=== PATIENT | male | born 1945 | race Caucasian/White ===

== ENCOUNTER 2020-09-11 10:19 | Day surgery (SDC) | payer MEDICARE, SELFPAY ==
--- NOTE | 2020-09-10 13:59 | HP_ITS ---
DATE OF SERVICE: 09/11/2020 PREOPERATIVE DIAGNOSES: 1. Osteomyelitis, left second toe. 2. Nonhealing skin ulcer, dorsum left second toe. PLANNED PROCEDURES: 1. Incision of infected bone cortex, left second toe. 2. Excision of skin ulcer, left second toe. 3. Bone biopsy, left second toe. PLANNED ANESTHESIA: Local anesthetic. CHIEF COMPLAINT AND HISTORY OF PRESENT ILLNESS: Mr. Padilla is a 75-year-old male who relates history of nonhealing skin ulcer and infected bone involving left second toe present over the past 3-1/2 to 4 months' duration. Conservative treatment consisting of wound care as well as oral antibiotics and endovascular procedures have been performed to help enhance the wound healing. The patient is now requesting surgical treatment for nonhealing infected bone and skin ulcer of his left second toe. PAST MEDICAL HISTORY: Remarkable for arthritis, diabetes, hypertensive renal disease. CURRENT MEDICATIONS: Lisinopril, NovoLog, simvastatin, Lantus, doxycycline. ALLERGIES: THE PATIENT HAS NEGATIVE REACTION TO PENICILLIN. FAMILY HISTORY: Significant for diabetes, hypertension, kidney disease. SOCIAL HISTORY: The patient denies smoking. Denies use of alcohol. Denies use of any recreational drugs. The patient does drink 3 to 5 cups of coffee per day. PODIATRIC PHYSICAL EXAM: VASCULAR EXAM: As of August 27, 2020 revealed nonpalpable pulses of the DP and PT arteries bilateral. NEUROLOGIC EXAM: Reveals reduced light touch, sharp, dull sensation, vibratory sensation, and monofilament testing in bilateral feet. DERMATOLOGIC EXAM: Reveals an ulcer on the dorsum of the left second toe PIP joint which measures 7 mm x 5 mm x 2 to 3 mm in depth, probes down to necrotic tendon and joint tissue of the PIP joint of this toe. ORTHOPEDIC EXAM: Reveals hammertoe contracture, bilateral feet. The patient will be consented for surgery on the day of surgery, September 11, 2020. The patient had endovascular procedure yesterday that would be September 09, 2020 at [facility] with Dr. Phillip Amaral, and we spoke to Dr. Riley prior to surgery and he assured as there were no contraindications to proceeding with surgery. The patient is aware that if he does not heal from this procedure, most likely he will need amputation of at least the left second toe and perhaps more the foot. RUBEN Samaniego/NICANOR / [phone]
[2020-09-11 11:53] VITALS: BMI 24.1
[2020-09-11 12:11] VITALS: BP 137/60; PULSE 70; RESP 16; TEMP 36.9; O2SAT 99
[2020-09-11 12:32] LABS: Glucose, Whole Blood 143 mg/dL (60-115)
--- NOTE | 2020-09-11 14:11 | MHC.SHP ---
Pre-Procedural Eval Section A Date of Service: 09/11/20 Section B Chief Complaint: osteomyelitis,skin ulcer Allergies: Allergies Allergy/AdvReac Type Severity Reaction Status Date / Time penicillin V Allergy Unknown Rash Verified 09/11/20 11:52 Penicillins [PENICILLINS] Allergy Unknown RASH Verified 09/11/20 11:52 penicillin Allergy Unknown rash Uncoded 09/11/20 11:53 Plan I have reviewed the history and physical and performed a pertinent physical examination on my patient. No changes have occurred unless specified.
[2020-09-11 15:00] VITALS: BP 143/71; PULSE 66; RESP 18; TEMP 36.3; O2SAT 100
--- NOTE | 2020-09-11 15:06 | PCN2_ITS ---
Brief Operative Note Date of procedure: 09/11/20 Pre-op diagnosis: osteomyelitis left second toe and non-healing skin ulcer left second toe Post-op diagnosis: same Procedure: incision of bone cortex, bone biopsy and culture and excision of skin ulcer 3.1 cm by 1.1 cm left second toe Anesthesia: local Surgeon: Marcello Dawson [employer] Music Teacher: Ivonne Lockhart Estimated blood loss (mL): 10.0 Condition: stable Disposition: PACU
--- NOTE | 2020-09-11 16:13 | OP_ITS ---
SURGEON: Marcello Dawson DPM PREOPERATIVE DIAGNOSIS: POSTOPERATIVE DIAGNOSIS: PROCEDURE PERFORMED: ESTIMATED BLOOD LOSS: COMPLICATIONS: ANESTHESIA: Consisted of local administration of a total of 4 mL of 2% lidocaine plain. ASSISTANTS: SPECIMENS: PREOPERATIVE DIAGNOSES: 1. Osteomyelitis of the left second toe. 2. Skin ulcer of the left second toe, nonhealing. POSTOPERATIVE DIAGNOSES: 1. Osteomyelitis of the left second toe. 2. Skin ulcer of the left second toe, nonhealing. PROCEDURES PERFORMED: 1. Incision of the infected bone cortex, left second toe. 2. Excision of skin ulcer of the left foot, measuring 3.1 cm length x 1 cm width. 3. Bone biopsy, left second toe. INTRODUCTION: The patient was brought to the operating room and placed on the operating table in the supine position. After having been suitably anesthetized with local infiltrative anesthesia, the left lower extremity was then prepped and draped in usual sterile manner. Attention was directed to the dorsum of the left second toe, where 2 converging semi-elliptical incisions were planned to excise the skin ulcer on the dorsum of the left second toe PIP joint. Upon so doing, the skin margins were underscored and retracted, and the ellipse of skin was excised from the wound in toto. There was found to be excellent blood flow to the second toe throughout the procedure, particularly during the skin incision. The head of the proximal phalanx was actually protruding through the skin on the dorsum of the left second toe through the skin ulceration. Utilizing a power sagittal saw, the bone was osteotomized proximal to the anatomic neck of the left second toe proximal phalanx, and the utilizing bone cutting forceps, the diseased bone and cartilage from the articular surface of the proximal phalanx was sent for bone biopsy and for bone culture. The base of the middle phalanx was excised utilizing a sagittal saw. The wound was irrigated with copious amounts of sterile saline, utilizing a power lavage and suction. The extensor tendon was sutured utilizing 3-0 Vicryl. Skin margins were closed with a combination of 3-0 and 4-0 nylon. CONCLUSION: At the conclusion of these procedures, the operative site was dressed with Xeroform, injected with a total of 3 mL of Marcaine 0.5% plain. 2-inch Rudy, Betadine-soaked gauze, Kerlix fluffs, and then 4-inch Conform were applied to the left lower extremity. The patient tolerated the surgery and anesthesia well and was discharged to Recovery via cart. FINAL DISPOSITION: The patient is discharged to home with instructions for self-care to include the followin. To keep the dressings dry, clean, and intact. 2. To keep the left leg elevated. 3. To take all medications as prescribed. 4. To limit activity to minimum. 5. To always use surgical shoe whenever ambulating. 6. The patient will be taking doxycycline 100 mg daily and antibiotics may be changed pending the results of the wound culture and bone culture. . CUT OFF SAW OPERATOR PIPE BLANKS: RUBEN Aguilar DPM WW/NICANOR / [id number] RAYMUNDO
== END 2020-09-11 15:30 ==
LOC: HO.SSS 10:20
PROVIDERS: PCP Internal Medicine; Visit Provider Podiatrist
PROC: (CPT 28005; principal; 2020-09-11 13:00)
DX: M86.9 Osteomyelitis, unspecified (principal); L97.522 Non-pressure chronic ulcer of other part of left foot with fat layer exposed; E10.42 Type 1 diabetes mellitus with diabetic polyneuropathy; I70.203 Unspecified atherosclerosis of native arteries of extremities, bilateral legs; M20.42 Other hammer toe(s) (acquired), left foot; M20.41 Other hammer toe(s) (acquired), right foot; I10 Essential (primary) hypertension; Z79.4 Long term (current) use of insulin; Z79.899 Other long term (current) drug therapy; Z88.0 Allergy status to penicillin
CPT/HCPCS: 28005; 11424; 28054; 82947; 87071; 87205; 88304; 88305; 88311

== ENCOUNTER 2020-10-20 08:14 | Outpatient (REF) | payer MEDICARE, SELFPAY ==
[2020-10-20 09:44] LABS: MANUAL DIFF FLAG NO
[2020-10-20 09:57] LABS: Basophils Absolute Auto 0.1 X10*3/uL (0.0-0.2); Basophils Percent Auto 0.8 % (0-2); Eosinophils Absolute Auto 0.2 X10*3/uL (0.0-0.4); Eosinophils Percent Auto 3.5 % (0-4); Hematocrit 42.5 % (42-52); Hemoglobin 14.1 g/dl (14.0-18.0); Imm Gran Abs Auto 0.02 X10*3/uL (0.00-0.03); Imm Gran Pct Auto 0.3 % (0.0-0.4); Lymphocytes Absolute Auto 2.2 X10*3/uL (1.2-4.9); Lymphocytes Percent Auto 32.9 % (20-40); Mean Corpuscular HGB Conc 33.2 g/dl (31.0-36.0); Mean Corpuscular Volume 87.4 fL (80-98); Mean Platelet Volume 10.9 fL (9.4-12.4); Monocytes Absolute Auto 0.6 X10*3/uL (0.1-1.2); Monocytes Percent Auto 8.6 % (2-11); Neutrophils Absolute Auto 3.5 X10*3/uL (2.0-8.3); Neutrophils Percent Auto 53.9 % (45-73); Platelet Count 150 X10*3/uL (160-400); Red Blood Count 4.86 X10*6/uL (4.60-5.80); Red Cell Distribution Width 12.7 % (11.0-16.0); White Blood Count 6.5 X10*3/uL (4.8-10.8)
[2020-10-20 10:10] LABS: Alanine Aminotransferase 17 U/L (0-40); Albumin Level 4.4 g/dL (3.5-5.0); Alkaline Phosphatase 95 U/L (39-117); Anion Gap 13 (12-20); Aspartate Amino Transferase 24 U/L (5-37); Bilirubin Total 0.3 mg/dL (0.0-1.0); Blood Urea Nitrogen 28 mg/dL (9-16); Calcium 9.5 mg/dL (8.4-10.2); Carbon Dioxide 24 mmol/L (22-29); Chloride 107 mmol/L (96-108); Cholesterol 159 mg/dL; Estimated Glomerular Filt Rate > 60; Glucose Random 142 mg/dL (60-115); HDL Cholesterol 33 mg/dL; LDL Cholesterol Calculated 107 mg/dl; Potassium 5.3 mmol/L (3.3-5.1); Sodium 139 mmol/L (135-145); Total Protein 7.3 g/dL (6.5-8.0); Triglycerides 97 mg/dL
[2020-10-20 10:34] LABS: Thyroid Stimulating Hormone 3.43 uIU/mL (0.32-4.0)
[2020-10-20 10:36] LABS: Creatinine Urine 80.13 mg/dL; Microalbum/Creatinine Ratio Ur 9.9 ug/mg cr
[2020-10-20 10:37] LABS: Folate 13.3 ng/mL (> or = 4.0); Vitamin B12 548 pg/mL (200-900)
== END 2020-10-20 08:15 | disposition home or self-care (01) ==
LOC: HO.LAB 08:14
PROVIDERS: PCP Internal Medicine; Visit Provider Internal Medicine
DX: E78.00 Pure hypercholesterolemia, unspecified (principal); E11.65 Type 2 diabetes mellitus with hyperglycemia; I10 Essential (primary) hypertension; Z79.4 Long term (current) use of insulin
CPT/HCPCS: 36415; 80053; 80061; 82043; 82607; 82746; 84439; 84443; 85025

== ENCOUNTER 2021-06-10 09:16 | Outpatient (REF) | payer MEDICARE, SELFPAY ==
[2021-06-10 09:52] LABS: MANUAL DIFF FLAG NO
[2021-06-10 10:01] LABS: Basophils Percent Auto 0.5 % (0-2); Eosinophils Absolute Auto 0.2 X10*3/uL (0.0-0.4); Hematocrit 42.7 % (42.0-52.0); Hemoglobin 14.5 g/dl (14.0-18.0); Imm Gran Abs Auto 0.01 X10*3/uL (0.00-0.03); Imm Gran Pct Auto 0.1 % (0.0-0.4); Lymphocytes Absolute Auto 2.4 X10*3/uL (1.2-4.9); Lymphocytes Percent Auto 32.2 % (20-40); Mean Corpuscular Hemoglobin 29.2 pg (27.0-33.0); Mean Corpuscular Volume 85.9 fL (80.0-98.0); Mean Platelet Volume 10.4 fL (9.4-12.4); Monocytes Absolute Auto 0.7 X10*3/uL (0.1-1.2); Monocytes Percent Auto 9.5 % (2-11); Neutrophils Percent Auto 54.7 % (45-73); Platelet Count 137 X10*3/uL (160-400); Red Blood Count 4.97 X10*6/uL (4.60-5.80); White Blood Count 7.3 X10*3/uL (4.8-10.8)
[2021-06-10 10:50] LABS: Alanine Aminotransferase 22 U/L (0-40); Albumin Level 4.5 g/dL (3.5-5.0); Alkaline Phosphatase 119 U/L (39-117); Anion Gap 13 (12-20); Aspartate Amino Transferase 20 U/L (5-37); Bilirubin Total 0.7 mg/dL (0.0-1.0); Blood Urea Nitrogen 23 mg/dL (9-16); Calcium 9.7 mg/dL (8.4-10.2); Carbon Dioxide 26 mmol/L (22-29); Chloride 108 mmol/L (96-108); Cholesterol 120 mg/dL; Estimated Glomerular Filt Rate 52; Glucose Random 135 mg/dL (60-115); HDL Cholesterol 26 mg/dL; LDL Cholesterol Calculated 72 mg/dl; Potassium 6.1 mmol/L (3.3-5.1); Sodium 141 mmol/L (135-145); Total Protein 7.2 g/dL (6.5-8.0); Triglycerides 112 mg/dL
== END 2021-06-10 09:17 | disposition home or self-care (01) ==
LOC: HO.LAB 09:16
PROVIDERS: PCP Internal Medicine; Visit Provider Internal Medicine
DX: E78.00 Pure hypercholesterolemia, unspecified (principal)
CPT/HCPCS: 36415; 80053; 80061; 85025

== ENCOUNTER 2021-06-11 10:21 | Outpatient (REF) | payer MEDICARE, SELFPAY ==
[2021-06-11 12:50] LABS: Anion Gap 10 (12-20); Blood Urea Nitrogen 19 mg/dL (9-16); Calcium 9.9 mg/dL (8.4-10.2); Carbon Dioxide 29 mmol/L (22-29); Chloride 107 mmol/L (96-108); Estimated Glomerular Filt Rate > 60; Glucose Random 91 mg/dL (60-115); Potassium 5.8 mmol/L (3.3-5.1); Sodium 140 mmol/L (135-145)
== END 2021-06-11 10:22 | disposition home or self-care (01) ==
LOC: HO.LAB 10:21
PROVIDERS: PCP Internal Medicine; Visit Provider Internal Medicine
DX: E87.5 Hyperkalemia (principal)
CPT/HCPCS: 36415; 80048

== ENCOUNTER 2021-06-18 12:51 | Outpatient (REF) | payer MEDICARE, SELFPAY ==
[2021-06-18 13:53] LABS: Anion Gap 12 (12-20); Blood Urea Nitrogen 20 mg/dL (9-16); Calcium 9.2 mg/dL (8.4-10.2); Carbon Dioxide 28 mmol/L (22-29); Chloride 108 mmol/L (96-108); Estimated Glomerular Filt Rate > 60; Glucose Random 86 mg/dL (60-115); Potassium 4.8 mmol/L (3.3-5.1); Sodium 143 mmol/L (135-145)
== END 2021-06-18 12:52 | disposition home or self-care (01) ==
LOC: HO.LAB 12:51
PROVIDERS: PCP Internal Medicine; Visit Provider Internal Medicine
DX: E87.5 Hyperkalemia (principal)
CPT/HCPCS: 36415; 80048

== ENCOUNTER → 2022-02-08 10:14 | Outpatient (REF) | payer MEDICARE, SELFPAY ==
--- NOTE | 2022-02-08 10:16 | CA_ITS ---
Transthoracic Echocardiogram Patient (Last, First, Middle): Arsenio Padilla G Gender: Male Date of : 1945 Age: 76 Procedure Date: 02/08/2022 Procedure Type: Transthoracic Echocardiogram Location: OP Height: 170.18 cm Weight: 72.58 kg BSA: 1.84 m2 Heart Rate: bpm BP: 140 / 70 mmHg Offset Machine Operator: YENY Referring MD: Petty Riley MD Symptoms: I10 - Essential (primary) hypertension Study Quality: Fair ECG Rhythm: Sinus Conclusions: - The left ventricular systolic function is normal. The visually estimated ejection fraction is between 55-60%. - There is severe aortic valve stenosis. Findings Left Ventricle Normal left ventricular cavity size. There is moderately increased left ventricular wall thickness. The left ventricular systolic function is normal. The visually estimated ejection fraction is between 55-60%. There is no evidence of regional wall motion abnormalities. Diastolic function is normal for age. Right Ventricle Normal right ventricular cavity size and systolic function. Atria Both atria are normal in size. Aortic Valve There is severe calcification of the aortic valve. There is severe aortic valve stenosis. The peak aortic gradient is 77 mmHg.The mean gradient is 49 mmHg. The aortic valve area is 0.53 cm2. There is mild aortic valve regurgitation. Dimensionless index 0.17. Mitral Valve There is mild mitral annular calcification. There is no mitral valve regurgitation. There is no mitral valve stenosis. Pulmonic Valve The pulmonic valve was not well visualized. Tricuspid Valve There is trace tricuspid valve regurgitation. There is no evidence of pulmonary hypertension. Great Vessels The asc aorta is normal in size. Venous The inferior vena cava is normal in size and collapses greater than 50% with inspiration. Pericardium/Pleural There is no evidence of pericardial effusion. Prior Study Comparison Changes noted compared to prior study dated: 05/19/2009. Development of aortic stenosis. Measurements 2D Linear Measurements IVSd: 1.30 0.6-0.9/0.6-1.0 cm LVIDd: 3.84 3.9-5.3/4.2-5.9 cm LVIDd Index: 2.09 2.4-3.2/2.2-3.1 cm/m2 LVIDs: 2.73 2.0-3.6 cm LVPWd: 1.22 0.7-1.1 cm LA Diam: 3.00 2.7-3.8/3.0-4.0 cm LAIDs Index: 1.63 1.5-2.3 cm/m2 LV Mass: 208.66 67-162/88-224 g LV Mass Index: 113.40 43-95/49-115 g/m2 LVOT Diam: 2.00 3.0+(-)1.3 cm 2D Systolic Function EF 4C: 60.30 >55% EF 2C: 54.40 >55% Mitral Valve MV Pk E: 0.81 MV PK A: 1.27 MV Decel Time: 423.00 E/A: 0.60 E'Lateral: 5.87 E'Medial: 3.70 E/E' Med: 21.90 E/E' Lat: 13.80 PHT: 124.00 MVA PHT: 1.77 Decel [place]: 1.92 Aortic Valve AoV Pk Karthikeyan: 4.38 AoV Mn Karthikeyan: 3.31 AoV VTI: 1.17 AoV Pk Grad: 77.00 Aov Mn Grad: 49.00 ELLA Cont.VTI: 0.53 AI Pk Karthikeyan: 4.22 AI [place]: 1.79 LVOT LVOT Pk Karthikeyan: 0.75 LVOT Mn Karthikeyan: 0.57 LVOT VTI: 0.20 LVOT Pk Grad: 2.00 LVOT Mn Grad: 1.00 LVOT Diam: 2.00 LVOT Area: 3.14 Diastolic Function MV Pk E: 0.81 MV Pk A: 1.27 E/A: 0.60 E'Medial: 3.70 E/E' Med: 21.90 E' Laterial: 5.87 E/E' Lat: 13.80 Right Ventricle TAPSE (mm): 25.00 TVS' Karthikeyan: 10.60 Tricuspid Valve RA Press: 3.00 Great Vessels Aorta Sinus of Valsalva: 3.42 2.0-3.[address] [place]: 2.50 1.7-3.4 cm Ao Asc: 2.70 2.1-3.4 cm Updated in Other Vendor System with Status of Final Collins Levine MD electronically signed on 02/08/2022 12:55:01 PM with status of Final
== END ==
LOC: HO.CARD 10:14
PROVIDERS: Visit Provider Internal Medicine
DX: I10 Essential (primary) hypertension (principal)
CPT/HCPCS: 93306

== ENCOUNTER → 2022-02-11 09:42 | Outpatient (BNVA) | payer MEDICARE, SELFPAY | PROVIDERS: PCP Internal Medicine; Referring Provider Internal Medicine; Visit Provider Internal Medicine | DX: I35.0 Nonrheumatic aortic (valve) stenosis (principal) | CPT/HCPCS: 93005; 99202 ==

== ENCOUNTER 2022-02-19 07:23 | Outpatient (REF) | payer MEDICARE, SELFPAY ==
[2022-02-19 08:03] LABS: Hemoglobin 13.6 g/dl (14.0-18.0); Mean Corpuscular Hemoglobin 28.9 pg (27.0-33.0); Mean Corpuscular Volume 85.1 fL (80.0-98.0); Mean Platelet Volume 10.4 fL (9.4-12.4); Platelet Count 146 X10*3/uL (160-400); Red Cell Distribution Width 13.1 % (11.0-16.0); White Blood Count 7.7 X10*3/uL (4.8-10.8)
[2022-02-19 08:17] LABS: INTERNATIONAL NORM RATIO 1.1 (0.9-1.1); Prothrombin Time 12.1 SEC (10.0-13.1)
[2022-02-19 08:28] LABS: Anion Gap 13 (12-20); Blood Urea Nitrogen 24 mg/dL (9-16); Calcium 9.3 mg/dL (8.4-10.2); Carbon Dioxide 27 mmol/L (22-29); Chloride 109 mmol/L (96-108); Estimated Glomerular Filt Rate > 60; Glucose Random 80 mg/dL (60-115); Potassium 4.6 mmol/L (3.3-5.1); Sodium 144 mmol/L (135-145)
[2022-02-19 08:54] LABS: Alanine Aminotransferase 17 U/L (0-40); Albumin Level 4.3 g/dL (3.5-5.0); Alkaline Phosphatase 121 U/L (39-117); Anion Gap 11 (12-20); Aspartate Amino Transferase 20 U/L (5-37); Bilirubin Total 0.7 mg/dL (0.0-1.0); Blood Urea Nitrogen 22 mg/dL (9-16); Calcium 9.4 mg/dL (8.4-10.2); Carbon Dioxide 27 mmol/L (22-29); Chloride 110 mmol/L (96-108); Cholesterol 118 mg/dL; Estimated Glomerular Filt Rate > 60; Glucose Random 82 mg/dL (60-115); HDL Cholesterol 26 mg/dL; LDL Cholesterol Calculated 75 mg/dl; Potassium 5.1 mmol/L (3.3-5.1); Sodium 143 mmol/L (135-145); TSH reflex Free T4 3.23 uIU/mL (0.32-4.0); Total Protein 6.6 g/dL (6.5-8.0); Triglycerides 86 mg/dL; Vitamin D 25-OH Total 16.2 ng/mL (>30)
[2022-02-19 10:20] LABS: Folate 11.6 ng/mL (> or = 4.0); Vitamin B12 1487 pg/mL (200-900)
[2022-02-19 17:32] LABS: Creatinine Urine 65.72 mg/dL; Microalbum/Creatinine Ratio Ur 31.9 ug/mg cr
== END 2022-02-19 07:24 | disposition home or self-care (01) ==
LOC: HO.LAB 07:23
PROVIDERS: Absent Provider Internal Medicine; PCP Internal Medicine; Visit Provider Internal Medicine
DX: I35.0 Nonrheumatic aortic (valve) stenosis (principal); E11.65 Type 2 diabetes mellitus with hyperglycemia; E78.00 Pure hypercholesterolemia, unspecified; Z13.29 Encounter for screening for other suspected endocrine disorder
CPT/HCPCS: 36415; 80048; 80053; 80061; 82043; 82306; 82607; 82746; 84443; 85027; 85610

== ENCOUNTER → 2022-03-17 14:42 | Outpatient (BNVA) | payer MEDICARE, SELFPAY | PROVIDERS: PCP Internal Medicine; Referring Provider Internal Medicine; Visit Provider Internal Medicine | DX: I35.0 Nonrheumatic aortic (valve) stenosis (principal); I25.10 Atherosclerotic heart disease of native coronary artery without angina pectoris; I10 Essential (primary) hypertension; E11.65 Type 2 diabetes mellitus with hyperglycemia; Z79.4 Long term (current) use of insulin; Z79.899 Other long term (current) drug therapy | CPT/HCPCS: 99212 ==

== ENCOUNTER → 2022-06-24 09:24 | Outpatient (BNVA) | payer MEDICARE, SELFPAY | PROVIDERS: PCP Internal Medicine; Referring Provider Internal Medicine; Visit Provider Internal Medicine | DX: I25.10 Atherosclerotic heart disease of native coronary artery without angina pectoris (principal); I48.0 Paroxysmal atrial fibrillation; I10 Essential (primary) hypertension; E11.65 Type 2 diabetes mellitus with hyperglycemia; Z79.01 Long term (current) use of anticoagulants; Z79.4 Long term (current) use of insulin; Z79.82 Long term (current) use of aspirin; Z79.899 Other long term (current) drug therapy | CPT/HCPCS: 99212 ==

== ENCOUNTER → 2022-09-07 11:07 | Outpatient (REF) | payer MEDICARE, MEDICAID, SELFPAY ==
--- NOTE | 2022-09-07 11:11 | CA_ITS ---
Transthoracic Echocardiogram Patient (Last, First, Middle): Aresnio Padilla G Gender: Male Date of : 1945 Age: 77 Procedure Date: 09/07/2022 Procedure Type: Transthoracic Echocardiogram Location: OP Height: 167.64 cm Weight: 69.4 kg BSA: 1.78 m2 Heart Rate: bpm BP: 122 / 70 mmHg Occupational Therapy Director: Referring MD: Collins Levine MD Symptoms: Z95.2 - Presence of prosthetic heart valve Study Quality: Fair ECG Rhythm: Sinus Conclusions: - The left ventricular systolic function is low normal. The visually estimated ejection fraction is between 50-55%. - A bioprosthetic aortic valve is present. The prosthetic aortic valve appears to be functioning normally. Findings Procedure Information Contrast agent, definity, is being given per protocol without apparent complications. Left Ventricle Normal left ventricular cavity size. There is mildly increased left ventricular wall thickness. The left ventricular systolic function is low normal. The visually estimated ejection fraction is between 50-55%. There is no evidence of regional wall motion abnormalities. Diastolic function is normal for age. Right Ventricle Normal right ventricular cavity size. There is mildly decreased right ventricular systolic function. Atria Both atria are normal in size. Aortic Valve A bioprosthetic aortic valve is present. The prosthetic aortic valve appears to be functioning normally. There is no aortic valve regurgitation. Mitral Valve There is mild mitral annular calcification. There is no mitral valve regurgitation. There is no mitral valve stenosis. Pulmonic Valve The pulmonic valve is likely normal. Tricuspid Valve There is trace tricuspid valve regurgitation. There is no evidence of pulmonary hypertension. Great Vessels The asc aorta is normal in size. Venous The inferior vena cava is normal in size and collapses greater than 50% with inspiration. Pericardium/Pleural There is no evidence of pericardial effusion. Prior Study Comparison Changes noted compared to prior study dated: 02/08/2022. s/p AVR Measurements 2D Linear Measurements IVSd: 1.09 0.6-0.9/0.6-1.0 cm LVIDd: 4.46 3.9-5.3/4.2-5.9 cm LVIDd Index: 2.51 2.4-3.2/2.2-3.1 cm/m2 LVIDs: 2.94 2.0-3.6 cm LVPWd: 1.13 0.7-1.1 cm Ao Root: 2.80 2.1-3.5 cm LA Diam: 3.00 2.7-3.8/3.0-4.0 cm LAIDs Index: 1.69 1.5-2.3 cm/m2 LV Mass: 217.74 67-162/88-224 g LV Mass Index: 122.32 43-95/49-115 g/m2 LVOT Diam: 2.00 3.0+(-)1.3 cm 2D Systolic Function EF 4C: 54.00 >55% EF 2C: 57.90 >55% EF BiP: 54.70 >55% Mitral Valve MV Pk E: 0.97 MV PK A: 1.13 MV Decel Time: 228.00 E/A: 0.90 E'Lateral: 9.03 E'Medial: 4.24 E/E' Med: 22.80 E/E' Lat: 10.70 PHT: 67.00 MVA PHT: 3.28 Decel [place]: 4.24 Aortic Valve AoV Pk Karthikeyan: 1.51 AoV Mn Karthikeyan: 1.16 AoV VTI: 0.38 AoV Pk Grad: 9.00 Aov Mn Grad: 6.00 ELLA Cont.VTI: 1.88 LVOT LVOT Pk Karthikeyan: 0.89 LVOT Mn Karthikeyan: 0.57 LVOT VTI: 0.23 LVOT Pk Grad: 3.00 LVOT Mn Grad: 2.00 LVOT Diam: 2.00 LVOT Area: 3.14 Diastolic Function MV Pk E: 0.97 MV Pk A: 1.13 E/A: 0.90 E'Medial: 4.24 E/E' Med: 22.80 E' Laterial: 9.03 E/E' Lat: 10.70 Right Ventricle TAPSE (mm): 16.00 TVS' Karthikeyan: 7.00 Tricuspid Valve TR Pk Karthikeyan: 1.88 TR Pk Grad: 14.00 Great Vessels Aorta Ao Root-2D: 2.80 2.0-3.7 cm Ao Asc: 2.80 2.1-3.4 cm Pulmonary Valve PV Pk Karthikeyan: 0.98 Peak PV Grad: 4.00 Updated in Other Vendor System with Status of Final Collins Levine MD electronically signed on 09/08/2022 10:42:29 AM with status of Final
== END ==
LOC: HO.CARD 11:07
PROVIDERS: Visit Provider Internal Medicine
DX: Z95.2 Presence of prosthetic heart valve (principal); I07.1 Rheumatic tricuspid insufficiency; I34.81 Nonrheumatic mitral (valve) annulus calcification; I49.3 Ventricular premature depolarization; I49.1 Atrial premature depolarization
CPT/HCPCS: 93242; 93306; Q9957

== ENCOUNTER 2022-10-11 12:48 | Outpatient (AMB) | payer MEDICARE, MEDICAID, SELFPAY ==
[2022-09-07 13:19] VITALS: BP 122/60; BP 128/64; BMI 24.3
[2022-10-11 12:50] VITALS: BP 122/70; PULSE 73; BMI 25.0
--- NOTE | 2022-10-11 12:50 | A.OFFVIS_ITS ---
Intake Vital Signs 10/11/22 12:50 Height 5 ft 7 in Weight 159 lb 9.835 oz BMI 25.0 BP 122/70 Blood Pressure Location Lt brachial Position Sitting Pulse 73 Intake Visit Reasons: follow up testing Intake Note: follow up testing Passenger Service Manager Required: No Accompanied by: Spouse Allergies penicillin V Allergy (Unknown, Verified 10/11/22 12:53) Rash Penicillins [PENICILLINS] Allergy (Unknown, Verified 10/11/22 12:53) RASH penicillin Allergy (Unknown, Uncoded 10/11/22 12:53) rash Medication List - Last Reconciled 10/11/22 by Collins Levine MD apixaban (Eliquis) 5 mg PO BID aspirin (Adult Low Dose Aspirin) 81 mg PO DAILY atorvastatin 40 mg PO DAILY 100 days blood sugar diagnostic 1 strip miscellaneous QID 100 days cyanocobalamin (vitamin B-12) 1,000 mcg PO DAILY 100 days finasteride 5 mg PO DAILY 100 days flash glucose scanning reader (edjingStyle Lyndsay 2 [place]) As directed flash glucose sensor (FreeStyle Lyndsay 14 Day Sensor kit) As directed flash glucose sensor (FreeStyle Lyndsay 2 Sensor kit) 6 times per day insulin detemir U-100 (Levemir FlexTouch U-100 Insulin) 20 units (0.2 mL) subcut BEDTIME 100 days Novolog FlexPen U-100 Insulin (insulin aspart U-100) 10 units (0.1 mL) subcut TID 100 days NS pen needle, diabetic (BD Ultra-Fine L[place]a Pen Needle) As directed 6 times per day HPI HPI Comments History of Present Illness Details Arsenio returns for follow-up regarding coronary artery disease. He was having exertional cardiac symptoms and that led to workup showing multivessel coronary disease as well as severe aortic stenosis. Underwent coronary artery bypass surgery and aortic valve replacement. Overall, he is doing good. No complaints like angina or shortness of breath or in fact anything cardiac sounding. [facility] Medical History Atherosclerotic cardiovascular disease BPH (benign prostatic hyperplasia) Finger fracture, left Hypercholesterolemia Hypertension Lumbar degenerative disc disease Type 2 diabetes mellitus with hyperglycemia Surgical History History of cataract surgery History of toe surgery S/P triple vessel bypass Family History Family/Other No problems noted. Mother CHF (congestive heart failure) Social History Housing: House Alcohol intake: never Patient Tobacco Use Status: Never used Tobacco e-Cigarette/Vaping Use: Never Used Second Hand Smoke Exposure: No service: No Current occupational status: retired Cognitive needs: No Hearing needs: No Vision needs: Yes Review of Systems Const Denies weakness ENT Denies dizziness Card Denies chest pain, Denies chest pain with activity, Denies syncope, Denies rapid heart rate, Denies pedal edema, Denies edema, Denies leg edema, Denies lightheadedness, Denies palpitations, Denies dyspnea, Denies dyspnea on exertion and Denies orthopnea Resp Denies cough, Denies dyspnea and Denies dyspnea on exertion GI Denies hematochezia and Denies change in stool character Musc Denies abnormal gait, Denies muscle cramps, Denies muscle weakness, Denies numbness, Denies radiating pain into limb and Denies tingling Neuro Denies abnormal gait, Denies dizziness, Denies syncope, Denies numbness, Denies tingling and Denies weakness Endo Denies palpitations Physical Exam Vital Signs: Last Vital Signs Pulse 73 10/11/22 12:50 BP 122/70 10/11/22 12:50 BMI result Body Mass Index 25.0 Const General: comfortable and no acute distress Orientation/consciousness: patient oriented x3 HEENT Other: Unremarkable Head: Yes normal to inspection Neck Neck: Yes normal visual inspection Chest Chest palpation & inspection: normal inspection of the chest Resp Auscultation: clear to auscultation bilaterally Cardio Palpation: normal PMI Heart sounds: S1 normal heart sound present, S2 normal heart sound present, no gallops, no murmurs and no rubs GI Palpation (GI): Soft to palpation Back/Spine/Pelvis Other: unremarkable Skin General skin exam: no rashes or lesions noted Neuro General: patient oriented x3 Extrem General: Yes normal to inspection Psych Mental Status: mental status grossly normal Assessment & Plan Assessment & Plan (1) Atherosclerotic cardiovascular disease: Code(s): I25.10 - Atherosclerotic heart disease of [place] coronary artery without angina pectoris Plan: Per discharge summary, underwent CABG x3-TITUS to LAD, sequential venous graft to OM and PDA. Continue aspirin. Continue statins. Last LDL 75 mg/dL. (2) Status post aortic valve replacement: Code(s): Z95.2 - Presence of prosthetic heart valve Plan: #23 Bioprosthetic AVR. Infective endocarditis prophylaxis per protocol. In the echocardiogram, normally functioning bioprosthetic aortic valve. (3) PAF (paroxysmal atrial fibrillation): Code(s): I48.0 - Paroxysmal atrial fibrillation Plan: Postoperative atrial fibrillation. He was on short-term amiodarone but now discontinued. On Eliquis. (4) Hypertension: Code(s): I10 - Essential (primary) hypertension Qualifiers: Hypertension type: essential hypertension Qualified Code(s): I10 - Essential (primary) hypertension Plan: He was on lisinopril but it seems that after the bypass surgery this has been discontinued. Seems stable. (5) Type 2 diabetes mellitus with hyperglycemia: Code(s): E11.65 - Type 2 diabetes mellitus with hyperglycemia Qualifiers: Diabetes mellitus under cutting machine operator insulin use: with under cutting machine operator use Qualified Code(s): E11.65 - Type 2 diabetes mellitus with hyperglycemia; Z79.4 - correction (current) use of insulin Plan: Remains on insulin. Last hemoglobin A1c is 6.4%. Coding Level of Care Code Est Pt Level 4 (81353) Diagnoses Atherosclerotic cardiovascular disease I25.10 Status post aortic valve replacement Z95.2 PAF (paroxysmal atrial fibrillation) I48.0 Hypertension I10 Hypertension type: essential hypertension Type 2 diabetes mellitus with hyperglycemia E11.65; Z79.4 Diabetes mellitus under cutting machine operator insulin use: with nursing home use
== END 2022-10-11 13:10 | disposition home or self-care (01) ==
PROVIDERS: Visit Provider Internal Medicine
DX: I25.10 Atherosclerotic heart disease of native coronary artery without angina pectoris (principal); Z95.2 Presence of prosthetic heart valve; I48.0 Paroxysmal atrial fibrillation; I10 Essential (primary) hypertension; E11.65 Type 2 diabetes mellitus with hyperglycemia; Z79.4 Long term (current) use of insulin
CPT/HCPCS: 99214

== ENCOUNTER → 2022-10-11 12:48 | Outpatient (BNVA) | payer MEDICARE, MEDICAID, SELFPAY ==
[2022-09-07 13:19] VITALS: BP 122/60; BP 128/64; BMI 24.3
== END ==
PROVIDERS: Visit Provider Internal Medicine
DX: I25.10 Atherosclerotic heart disease of native coronary artery without angina pectoris (principal); I48.0 Paroxysmal atrial fibrillation; I10 Essential (primary) hypertension; E11.65 Type 2 diabetes mellitus with hyperglycemia; Z79.4 Long term (current) use of insulin; Z95.2 Presence of prosthetic heart valve
CPT/HCPCS: 99212

== ENCOUNTER 2022-10-14 09:24 | Outpatient (REF) | payer MEDICARE, MEDICAID, SELFPAY ==
[2022-09-07 13:19] VITALS: BP 122/60; BP 128/64; BMI 24.3
[2022-10-14 09:53] LABS: MANUAL DIFF FLAG NO
[2022-10-14 10:29] LABS: Basophils Percent Auto 0.5 % (0-2); Eosinophils Absolute Auto 0.4 X10*3/uL (0.0-0.4); Eosinophils Percent Auto 4.8 % (0-4); Hematocrit 38.5 % (42.0-52.0); Hemoglobin 12.5 g/dl (14.0-18.0); Imm Gran Abs Auto 0.02 X10*3/uL (0.00-0.03); Imm Gran Pct Auto 0.3 % (0.0-0.4); Lymphocytes Absolute Auto 2.1 X10*3/uL (1.2-4.9); Lymphocytes Percent Auto 28.3 % (20-40); Mean Corpuscular HGB Conc 32.5 g/dl (31.0-36.0); Mean Corpuscular Hemoglobin 27.4 pg (27.0-33.0); Mean Corpuscular Volume 84.2 fL (80.0-98.0); Monocytes Absolute Auto 0.7 X10*3/uL (0.1-1.2); Monocytes Percent Auto 9.2 % (2-11); Neutrophils Absolute Auto 4.2 x10*3/uL (2.0-8.3); Neutrophils Percent Auto 56.9 % (45-73); Red Blood Count 4.57 X10*6/uL (4.60-5.80); Red Cell Distribution Width 14.7 % (11.0-16.0); White Blood Count 7.4 X10*3/uL (4.8-10.8)
[2022-10-14 11:12] LABS: Alanine Aminotransferase 16 U/L (0-40); Albumin Level 3.7 g/dL (3.5-5.0); Alkaline Phosphatase 105 U/L (39-117); Anion Gap 15 (12-20); Aspartate Amino Transferase 22 U/L (5-37); Bilirubin Total 0.6 mg/dL (0.0-1.0); Blood Urea Nitrogen 22 mg/dL (9-16); Calcium 9.4 mg/dL (8.4-10.2); Carbon Dioxide 22 mmol/L (22-29); Chloride 110 mmol/L (96-108); Cholesterol 124 mg/dL; Estimated Glomerular Filt Rate > 60; Glucose Fasting 91 mg/dL (60-99); HDL Cholesterol 27 mg/dL; LDL Cholesterol Calculated 76 mg/dl; Potassium 4.6 mmol/L (3.3-5.1); Sodium 142 mmol/L (135-145); Total Protein 6.6 g/dL (6.5-8.0); Triglycerides 107 mg/dL
[2022-10-14 11:23] LABS: Mean Platelet Volume 11.3 fL (9.4-12.4); Platelet Count 99 X10*3/uL (160-400)
[2022-10-14 11:31] LABS: TSH reflex Free T4 3.02 uIU/mL (0.32-4.0)
== END 2022-10-14 09:25 | disposition home or self-care (01) ==
LOC: HO.LAB 09:24
PROVIDERS: PCP Internal Medicine; Visit Provider Nurse Practitioner Family
DX: I48.0 Paroxysmal atrial fibrillation (principal); I48.91 Unspecified atrial fibrillation; I25.10 Atherosclerotic heart disease of native coronary artery without angina pectoris; E78.00 Pure hypercholesterolemia, unspecified; Z95.2 Presence of prosthetic heart valve; D64.9 Anemia, unspecified
CPT/HCPCS: 36415; 80053; 80061; 84443; 85025

== ENCOUNTER 2022-10-27 10:55 | Outpatient (AMB) | payer MEDICARE, MEDICAID, SELFPAY ==
[2022-09-07 13:19] VITALS: BP 122/60; BP 128/64; BMI 24.3
[2022-10-27 11:00] VITALS: BP 138/68; PULSE 68; O2SAT 96; BMI 24.6
--- NOTE | 2022-10-27 11:00 | A.OFFPC_ITS ---
Vital Signs 10/27/22 11:00 Height 5 ft 7 in Weight 157 lb BMI 24.6 BP 138/68 Blood Pressure Location Lt brachial Position Sitting Pulse 68 Pulse Source Pulse Oximeter Pulse Oximetry (%) 96 Oxygen Delivery Method Room Air Intake Visit Reasons: DM, HTN, HLD Allergies penicillin V Allergy (Unknown, Verified 10/27/22 11:01) Rash Penicillins [PENICILLINS] Allergy (Unknown, Verified 10/27/22 11:01) RASH penicillin Allergy (Unknown, Uncoded 10/11/22 12:53) rash Medication List - Last Reconciled 10/27/22 by Petty Riley MD apixaban (Eliquis) 5 mg PO BID aspirin (Adult Low Dose Aspirin) 81 mg PO DAILY atorvastatin 40 mg PO DAILY 100 days blood sugar diagnostic 1 strip miscellaneous QID 100 days cyanocobalamin (vitamin B-12) 1,000 mcg PO DAILY 100 days finasteride 5 mg PO DAILY 100 days flash glucose scanning reader (FreeStyle Lyndsay 2 [place]) As directed flash glucose scanning reader (FreeStyle Lyndsay 2 [place]) As directed flash glucose sensor (FreeStyle Lyndsay 14 Day Sensor kit) As directed flash glucose sensor (FreeStyle Lyndsay 2 Sensor kit) 6 times per day flash glucose sensor (FreeStyle Lyndsay 2 Sensor kit) As directed insulin detemir U-100 (Levemir FlexTouch U-100 Insulin) 20 units subcut BEDTIME Novolog FlexPen U-100 Insulin (insulin aspart U-100) 10 units (0.1 mL) subcut TID 100 days NS pen needle, diabetic (BD Ultra-Fine Licha Pen Needle) As directed 6 times per day Tobacco use date assessed: 07/16/22 Dental Screening Dental Screen Date: 10/27/22 Did you have a dental visit in the last 12 months?: Yes Did you have a dental problem in the last 6 months where you did not have access to dental care?: No Was dental information given to patient?: Patient has dentist HPI DM, HTN, HLD HPI Details 77-year-old male with controlled diabetes mellitus hypertension hypercholesterolemia BPH and peripheral vascular disease last seen in January 2022. Blood work was requested with an echocardiogram. Patient does have severe aortic stenosis.. 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 The visually estimated ejection fraction is between 50-55%. - A bioprosthetic aortic valve is present. The prosthetic aortic valve appears to be functioning normally. Patient also follows up with Nephrology June 2019 had an acute kidney injury as well as Urology for epididymo-orchitis [facility] Medical History (Updated 10/27/22 @ 11:33 by Petty Riley MD) Atherosclerotic cardiovascular disease BPH (benign prostatic hyperplasia) Finger fracture, left Hypercholesterolemia Hypertension Lumbar degenerative disc disease Type 2 diabetes mellitus with hyperglycemia Surgical History (Updated 10/27/22 @ 11:18 by Petty Riley MD) History of cataract surgery History of toe surgery S/P triple vessel bypass Family History (Updated 10/27/22 @ 11:03 by Nataly Thomas) Family/Other No problems noted. Mother CHF (congestive heart failure) Social History Housing: House Alcohol intake: never Patient Tobacco Use Status: Never used Tobacco e-Cigarette/Vaping Use: Never Used Second Hand Smoke Exposure: No service: No Current occupational status: retired Cognitive needs: No Hearing needs: No Vision needs: Yes Questionnaire PHQ-9 Over the last 2 weeks, how often have you been bothered by any of the following problems? 1. Little interest or pleasure in doing things: not at all 2. Feeling down, depressed, or hopeless: not at all 3. Trouble falling or staying asleep, or sleeping too much: not at all 4. Feeling tired or having little energy: not at all 5. Poor appetite or overeating: not at all 6. Feeling bad about yourself - or that you are a failure or have let yourself or your family down: not at all 7. Trouble concentrating on things, such as reading the newspaper or watching television: not at all 8. Moving or speaking so slowly that other people could have noticed. Or the opposite - being so fidgety or restless that you have been moving around a lot more than usual: not at all 9. Thoughts that you would be better off or of hurting yourself in some way: not at all Total score: 0 Depression Screening Interpretation: Negative [id number] - PHQ-9 Billing: Yes Source: Developed by Drs. Rocael Crespo, Elizabeth Cordero, Norm Cherry and colleagues, with an educational barbara from [email or web address]. Thrive Questionnaire Date Thrive assessed: 10/27/22 I am a: Patient What is your living situation today?: I have a steady place to live Within the past 12 months, did the food you bought not last and you didn't have the money to get more?: Never true Within the past 12 months, did you worry whether your food would run out before you got money to buy more?: Never true Do you have trouble paying for medicines?: No Do you have trouble getting transportation to medical appointments?: No Do you have trouble paying your heating and electricity bill?: No Do you have trouble taking care of your child, family member or friend?: No Do you have trouble with day-to-day activities such as bathing, preparing meals, shopping, managing finances, etc.?: No Are you currently unemployed and looking for a job?: No Are you interested in more education?: No Currently or been in a relationship where the following occur: no concerns reported AUDIT C Alcohol Use Questionnaire (AUDIT-C) 1. How often do you have a drink containing alcohol?: Never 2. How many drinks containing alcohol do you have on a typical day when you are drinking?: 1 or 2 3. How often do you have six or more drinks on one occasion?: Never Total Score: 0 Score Reviewed/Action Taken: No KENDELL-7 AMB Questionnaire KENDELL-7 Date KENDELL - 7 assessed: 10/27/22 Feeling nervous, anxious, or on edge: 0 = Not at all Not being able to stop or control worryin = Not at all Worrying too much about different things: 0 = Not at all Trouble relaxin = Not at all Being so restless that it is hard to sit still: 0 = Not at all Becoming easily annoyed or irritable: 0 = Not at all Feeling afraid as if something awful might happen: 0 = Not at all Total KENDELL-7 score (0-4 normal; 5-9 mild; 10-14 moderate; 15-21 severe): 0 Source: Developed by Elizabeth Lai Kurt Kroenke and colleagues, with an educational barbara from [email or web address]. Physical exam (Primary Care) Vital Signs: Last Vital Signs Pulse 68 10/27/22 11:00 BP 138/68 10/27/22 11:00 Pulse Ox 96 10/27/22 11:00 Oxygen Delivery Method Room Air 10/27/22 11:00 BMI result Body Mass Index 24.6 Tobacco/Smoking Status: Tobacco use Status Tobacco use date assessed 07/16/22 10/27/22 11:05 Patient Tobacco Use Status Never used Tobacco 10/27/22 11:05 e-Cigarette/Vaping Use Never Used 10/27/22 11:05 PHQ-9: PHQ-9 Score PHQ-9: Total score 0 10/27/22 11:16 Depression Screening Interpretation: Negative Thrive Assessment: Date of Thrive Assessment Date Thrive assessed 10/27/22 10/27/22 11:05 Currently or been in a relationship where the following occur: no concerns reported Const General: alert; No acute distress Eyes Conjunctivae: conjunctivae normal Resp Auscultation: clear to auscultation bilaterally Cardio Rate: regular rate Rhythm: regular rhythm GI Inspection: Yes normal to inspection Extrem General: Yes normal to inspection and No edema Results AMB Hemoglobin A1c AMB Hemoglobin A1c 7.7 % Last Edit by Sharda Gonzales CMA on 10/27/22 11 :17 Assessment and Plan Assessment & Plan (1) Atherosclerotic cardiovascular disease: Comment: Coronary artery bypass graft x3 April [address] Marquis Code(s): I25.10 - Atherosclerotic heart disease of [place] coronary artery without angina pectoris Plan: Control the cholesterol, weight, blood pressure, diabetes (2) Status post aortic valve replacement: Comment: April 2022 Dr. Marquis Code(s): Z95.2 - Presence of prosthetic heart valve Plan: Echocardiogram May 2022 (3) PAF (paroxysmal atrial fibrillation): Code(s): I48.0 - Paroxysmal atrial fibrillation Plan: Continue with anticoagulation (4) Type 2 diabetes mellitus with hyperglycemia: Code(s): E11.65 - Type 2 diabetes mellitus with hyperglycemia Qualifiers: Diabetes mellitus buttermaker continuous churn insulin use: with buttermaker continuous churn use Qualified Code(s): E11.65 - Type 2 diabetes mellitus with hyperglycemia; Z79.4 - terminal carman (current) use of insulin Plan: Decrease the amount of carbohydrate intake, pasta, bread, rice and potatoes are all sugar and that is aside from all the sweet stuff, remember that fruits are good but they are Sweet also. Hemoglobin A1c goal of less than 7.0 patient on Levemir and NovoLog (5) Hypercholesterolemia: Code(s): E78.00 - Pure hypercholesterolemia, unspecified Plan: Avoid fried foods, chicken skin, eggs, butter margarine, pastries and meat. Be it pork or beef they have a lot of cholesterol LDL goal of less than 70 patient is taking atorvastatin 40 mg once a day (6) Anemia: Code(s): D64.9 - Anemia, unspecified Orders: Orders Complete Blood Count Auto Diff Today D64.9 - Anemia, unspecified Ferritin Today D64.9 - Anemia, unspecified IRON PROFILE Today D64.9 - Anemia, unspecified Reticulocyte Count Today D64.9 - Anemia, unspecified AMB Hemoglobin A1c Today Z13.9 - Encounter for screening, unspecified Medications: New flash glucose scanning reader (FreeStyle Lyndsay 2 [place]) As directed 1 ea 0RF E11.65 - Type 2 diabetes mellitus with hyperglycemia, Z79.4 - care home (current) use of insulin flash glucose sensor (FreeStyle Lyndsay 2 Sensor kit) As directed 6 kits 0RF E11.65 - Type 2 diabetes mellitus with hyperglycemia, Z79.4 - terminal carman (current) use of insulin Changed From insulin detemir U-100 (Levemir FlexTouch U-100 Insulin) 20 units (0.2 mL) subcut BEDTIME 100 days 7 mL 3RF E11.65 - Type 2 diabetes mellitus with hyperglycemia, Z79.4 - care home (current) use of insulin To insulin detemir U-100 (Levemir FlexTouch U-100 Insulin) 20 units subcut BEDTIME E11.65 - Type 2 diabetes mellitus with hyperglycemia, Z79.4 - care home (current) use of insulin Coding Level of Care Code Est Pt Level 4 (42181) Diagnoses Atherosclerotic cardiovascular disease I25.10 Status post aortic valve replacement Z95.2 PAF (paroxysmal atrial fibrillation) I48.0 Type 2 diabetes mellitus with hyperglycemia E11.65; Z79.4 Diabetes mellitus skilled nursing insulin use: with buttermaker continuous churn use Hypercholesterolemia E78.00 Anemia D64.9
== END 2022-10-27 11:43 | disposition home or self-care (01) ==
PROVIDERS: PCP Internal Medicine; Visit Provider Internal Medicine
DX: I25.10 Atherosclerotic heart disease of native coronary artery without angina pectoris (principal); I48.0 Paroxysmal atrial fibrillation; E11.65 Type 2 diabetes mellitus with hyperglycemia; Z79.4 Long term (current) use of insulin; Z95.2 Presence of prosthetic heart valve; E78.00 Pure hypercholesterolemia, unspecified; D64.9 Anemia, unspecified
CPT/HCPCS: 83036; 99214

== ENCOUNTER 2023-02-02 12:16 | Outpatient (AMB) | payer MEDICARE, MEDICAID, SELFPAY ==
[2022-09-07 13:19] VITALS: BP 122/60; BP 128/64; BMI 24.3
--- NOTE | 2023-02-02 12:27 | A.OFFPC_ITS ---
Vital Signs 02/02/23 12:28 Height 5 ft 7 in Weight 156 lb BMI 24.4 BP 126/70 Blood Pressure Location Lt brachial Position Sitting Pulse 68 Pulse Source Pulse Oximeter Pulse Oximetry (%) 99 Oxygen Delivery Method Room Air Intake Visit Reasons: DM, CAD, AFib Allergies penicillin V Allergy (Unknown, Verified 10/27/22 11:01) Rash Penicillins [PENICILLINS] Allergy (Unknown, Verified 10/27/22 11:01) RASH penicillin Allergy (Unknown, Uncoded 10/11/22 12:53) rash Medication List - Last Reconciled 02/02/23 by Petty Riley MD apixaban (Eliquis) 5 mg PO BID aspirin (Adult Low Dose Aspirin) 81 mg PO DAILY atorvastatin 40 mg PO DAILY 100 days blood sugar diagnostic 1 strip miscellaneous QID 100 days cyanocobalamin (vitamin B-12) 1,000 mcg PO DAILY 100 days [DIABETIC SHOES As directed] finasteride 5 mg PO DAILY 100 days flash glucose scanning reader (FreeStyle Lyndsay 2 [place]) As directed flash glucose scanning reader (FreeStyle Lyndsay 2 [place]) As directed flash glucose sensor (FreeStyle Lyndsay 14 Day Sensor kit) As directed flash glucose sensor (FreeStyle Lyndsay 2 Sensor kit) 6 times per day flash glucose sensor (FreeStyle Lyndsay 2 Sensor kit) As directed insulin detemir U-100 (Levemir FlexTouch U-100 Insulin) 20 units subcut BEDTIME Novolog FlexPen U-100 Insulin (insulin aspart U-100) 10 units (0.1 mL) subcut TID 100 days NS pen needle, diabetic (BD Ultra-Fine Licha Pen Needle) As directed 6 times per day Tobacco use date assessed: 07/16/22 HPI DM, CAD, AFib HPI Details 77-year-old male with a history of diabe lisseth mellitus coronary artery disease status post aortic valve replacement atrial fibrillation hypercholesterolemia coming in for follow-up. Last seen in October 2022 A1c at that time was 7.7. [facility] Medical History (Updated 02/02/23 @ 12:57 by Petty Riley MD) Screening for hypothyroidism Atherosclerotic cardiovascular disease BPH (benign prostatic hyperplasia) Lumbar degenerative disc disease Finger fracture, left Hypercholesterolemia Hypertension Type 2 diabetes mellitus with hyperglycemia Surgical History (Updated 10/27/22 @ 11:18 by Petty Riley MD) S/P triple vessel bypass History of toe surgery History of cataract surgery Family History (Updated 10/27/22 @ 11:03 by Nataly Thomas) Family/Other No problems noted. Mother CHF (congestive heart failure) Housing: House Alcohol intake: never Patient Tobacco Use Status: Never used Tobacco e-Cigarette/Vaping Use: Never Used Second Hand Smoke Exposure: No service: No Current occupational status: retired Cognitive needs: No Hearing needs: No Vision needs: Yes Questionnaire Thrive Questionnaire Date Thrive assessed: 10/27/22 KENDELL-7 AMB Questionnaire KENDELL-7 Date KENDELL - 7 assessed: 10/27/22 Source: Developed by Drs. Rocael Crespo, Elizabeth Cordero, Norm Cherry and colleagues, with an educational barbara from [employer]. Physical exam (Primary Care) Vital Signs: Last Vital Signs Pulse 68 02/02/23 12:28 BP 126/70 02/02/23 12:28 Pulse Ox 99 02/02/23 12:28 Oxygen Delivery Method Room Air 02/02/23 12:28 BMI result Body Mass Index 24.4 Tobacco/Smoking Status: Tobacco use Status Tobacco use date assessed 07/16/22 02/02/23 12:27 Patient Tobacco Use Status Never used Tobacco 02/02/23 12:27 e-Cigarette/Vaping Use Never Used 02/02/23 12:27 Thrive Assessment: Date of Thrive Assessment Date Thrive assessed 10/27/22 02/02/23 12:27 Const General: alert; No acute distress Eyes Conjunctivae: conjunctivae normal Resp Auscultation: clear to auscultation bilaterally Cardio Rate: regular rate Rhythm: regular rhythm GI Inspection: Yes normal to inspection Extrem General: Yes normal to inspection and No edema Office Procedures Flu Questionnaire Does the patient have a severe egg allergy?: No Does the patient have severe life threatening allergies?: No Does the patient have a fever or illness today?: No Has the patient ever had Guillain-Jaffrey Syndrome?: No Has the patient ever had any past reaction to a flu shot?: No Results AMB Hemoglobin A1c AMB Hemoglobin A1c 8.0 % Last Edit by MACY Mcdowell on 02/02/23 12:40 Immunizations flu vacc [id number] 6mos up(PF) 60 mcg(15 mcgx4)/0.5 mL IM syringe Performing Provider: Petty Riley MD [facility] [facility] [place] [facility] Administered by: MACY Mcdowell on 02/02/23 12:39 Dose Route Admin Location Dispensed Lot Number Expiration Date NDC Stereoptic Projection Topographer 0.5 mL IM Left Deltoid 0.5 mL [id number] 02/02/23 [id number] [employer] VIS Given Date VIS Provided VIS Publication Date 02/02/23 Single Vaccine 20 Eligibility Eligibility Date Funding Source Not VFC Eligible 02/02/23 Private Results Reviewed Results Reviewed: Laboratory Last Values Hgb A1c (Clinic) 8.0 % (4.0-6.0) H 02/02/23 12:36 Assessment and Plan Assessment & Plan (1) Type 2 diabetes mellitus with hyperglycemia: Comment: Dr. Camilo in [place] Code(s): E11.65 - Type 2 diabetes mellitus with hyperglycemia Qualifiers: Diabetes mellitus intermediate card tender insulin use: with intermediate card tender use Qualified Code(s): E11.65 - Type 2 diabetes mellitus with hyperglycemia; Z79.4 - local intermodal truck driver (current) use of insulin Plan: Decrease the amount of carbohydrate intake, pasta, bread, rice and potatoes are all sugar and that is aside from all the sweet stuff, remember that fruits are good but they are Sweet also. Hemoglobin A1c goal of less than 7.0 patient is on Levemir and NovoLog. (2) Hypercholesterolemia: Code(s): E78.00 - Pure hypercholesterolemia, unspecified Plan: Avoid fried foods, chicken skin, eggs, butter margarine, pastries and meat. Be it pork or beef they have a lot of cholesterol LDL goal of less than 100 and triglyceride of less than 150 patient is on atorvastatin 40 mg once a day (3) BPH (benign prostatic hyperplasia): Code(s): N40.0 - Benign prostatic hyperplasia without lower urinary tract symptoms Qualifiers: Lower urinary tract symptom detail: urinary frequency Lower urinary tract symptom presence: symptoms present Qualified Code(s): N40.1 - Benign prostatic hyperplasia with lower urinary tract symptoms; R35.0 - Frequency of micturition Plan: Continue with finasteride (4) Atherosclerotic cardiovascular disease: Comment: Coronary artery bypass graft x3 April [address] Dr[address] Marquis Code(s): I25.10 - Atherosclerotic heart disease of [place] coronary artery without angina pectoris Plan: Control the cholesterol, weight, blood pressure, diabetes (5) PAF (paroxysmal atrial fibrillation): Code(s): I48.0 - Paroxysmal atrial fibrillation Plan: Continue with anticoagulation with Eliquis twice a year blood work for renal function (6) Status post aortic valve replacement: Comment: April [address] Dr. Marquis Code(s): Z95.2 - Presence of prosthetic heart valve Plan: Stable continue to follow-up with cardiology (7) Ulcer of toe of left foot: Code(s): L97.529 - Non-pressure chronic ulcer of other part of left foot with unspecified severity Plan: follows up with Dr. Juju gomez Orders: Orders Influenza [id number] Immunization Today Z23 - Encounter for immunization Thyroid Stimulating Hormone 3 Months I25.10 - Atherosclerotic heart disease of [place] coronary artery without angina pectoris Hemoglobin A1c 3 Months I25.10 - Atherosclerotic heart disease of [place] coronary artery without angina pectoris Ferritin 3 Months I25.10 - Atherosclerotic heart disease of [place] coronary artery without angina pectoris Reticulocyte Count 3 Months I25.10 - Atherosclerotic heart disease of [place] coronary artery without angina pectoris AMB Hemoglobin A1c Today E11.65 - Type 2 diabetes mellitus with hyperglycemia Complete Blood Count Auto Diff 3 Months I25.10 - Atherosclerotic heart disease of [place] coronary artery without angina pectoris Comprehensive Met. Panel 3 Months I25.10 - Atherosclerotic heart disease of [place] coronary artery without angina pectoris Free T4 (Free Thyroxine) 3 Months I25.10 - Atherosclerotic heart disease of [place] coronary artery without angina pectoris Lipid Panel 3 Months E78.00 - Pure hypercholesterolemia, unspecified, I25.10 - Atherosclerotic heart disease of [place] coronary artery without angina pectoris Vitamin B12 and Folate 3 Months I25.10 - Atherosclerotic heart disease of [place] coronary artery without angina pectoris IRON PROFILE 3 Months I25.10 - Atherosclerotic heart disease of [place] coronary artery without angina pectoris Coding Level of Care Code Est Pt Level 4 (02974) Diagnoses Type 2 diabetes mellitus with hyperglycemia, with long-term current use of insulin E11.65; Z79.4 Diabetes mellitus intermediate card tender insulin use: with senior living use Hypercholesterolemia E78.00 Benign prostatic hyperplasia with urinary frequency N40.1; R35.0 Lower urinary tract symptom detail: urinary frequency Lower urinary tract symptom presence: symptoms present Atherosclerotic cardiovascular disease I25.10 PAF (paroxysmal atrial fibrillation) I48.0 Status post aortic valve replacement Z95.2 Ulcer of toe of left foot L97.514
[2023-02-02 12:28] VITALS: BP 126/70; PULSE 68; O2SAT 99; BMI 24.4
== END 2023-02-02 13:07 | disposition home or self-care (01) ==
PROVIDERS: PCP Internal Medicine; Visit Provider Internal Medicine
DX: E11.65 Type 2 diabetes mellitus with hyperglycemia (principal); Z79.4 Long term (current) use of insulin; L97.529 Non-pressure chronic ulcer of other part of left foot with unspecified severity; Z23 Encounter for immunization; E78.00 Pure hypercholesterolemia, unspecified; I48.0 Paroxysmal atrial fibrillation; R35.0 Frequency of micturition; N40.1 Benign prostatic hyperplasia with lower urinary tract symptoms; I25.10 Atherosclerotic heart disease of native coronary artery without angina pectoris; Z95.2 Presence of prosthetic heart valve
CPT/HCPCS: 83036; 90471; 90686; 99214

== ENCOUNTER 2023-05-11 09:00 | Outpatient (REF) | payer MEDICARE, MEDICAID, SELFPAY ==
[2022-11-01 08:04] VITALS: BP 122/60; BP 128/64; BMI 24.3
[2023-05-11 09:13] LABS: MANUAL DIFF FLAG NO
[2023-05-11 10:28] LABS: Basophils Percent Auto 0.4 % (0-2); Eosinophils Absolute Auto 0.3 X10*3/uL (0.0-0.4); Eosinophils Percent Auto 4.3 % (0-4); Hematocrit 38.4 % (42.0-52.0); Hemoglobin 12.8 g/dl (14.0-18.0); Imm Gran Abs Auto 0.01 X10*3/uL (0.00-0.03); Imm Gran Pct Auto 0.1 % (0.0-0.4); Immature Retic Fraction 5.7 % (2.3-13.4); Lymphocytes Absolute Auto 2.4 X10*3/uL (1.2-4.9); Mean Corpuscular HGB Conc 33.3 g/dl (31.0-36.0); Mean Corpuscular Hemoglobin 28.6 pg (27.0-33.0); Mean Corpuscular Volume 85.7 fL (80.0-98.0); Monocytes Absolute Auto 0.7 X10*3/uL (0.1-1.2); Monocytes Percent Auto 10.4 % (2-11); Neutrophils Absolute Auto 3.6 x10*3/uL (2.0-8.3); Neutrophils Percent Auto 50.8 % (45-73); Platelet Count 132 X10*3/uL (160-400); Red Blood Count 4.48 X10*6/uL (4.60-5.80); Red Cell Distribution Width 13.8 % (11.0-16.0); Retic HGB Equivalent 32.6 pg (30.0-35.0); Reticulocyte Percent 1.2 % (0.5-1.8); Reticulocytes Absolute 0.054 X10*6/uL (0.026-0.095); White Blood Count 7.1 X10*3/uL (4.8-10.8)
[2023-05-11 11:12] LABS: Alanine Aminotransferase 14 U/L (0-40); Albumin Level 4.1 g/dL (3.5-5.0); Alkaline Phosphatase 149 U/L (39-117); Anion Gap 14 (12-20); Aspartate Amino Transferase 22 U/L (5-37); Bilirubin Total 0.7 mg/dL (0.0-1.0); Blood Urea Nitrogen 31 mg/dL (9-16); Calcium 9.7 mg/dL (8.4-10.2); Carbon Dioxide 26 mmol/L (22-29); Chloride 107 mmol/L (96-108); Cholesterol 113 mg/dL (<200); Estimated Glomerular Filt Rate > 60; Glucose Random 101 mg/dL (60-115); HDL Cholesterol 27 mg/dL (>40); Iron 78 mcg/dL (45-160); LDL Cholesterol Calculated 67 mg/dL (<100); Percent Iron Saturation 33 % (15-50); Potassium 4.8 mmol/L (3.3-5.1); Sodium 142 mmol/L (135-145); Total Iron Binding Capacity 233 mcg/dL (228-428); Triglycerides 97 mg/dL (<150); Unsaturated Iron Binding 155 ug/dL
[2023-05-11 11:16] LABS: Ferritin 338 ng/mL (20-250); Free T4 (Free Thyroxine) 0.89 ng/dL (0.71-1.85); Thyroid Stimulating Hormone 2.29 uIU/mL (0.32-4.0)
[2023-05-11 12:08] LABS: Estimated Average Glucose 163 mg/dL; Hemoglobin A1c % 7.3 % (<6.0)
[2023-05-11 15:02] LABS: Folate 7.4 ng/mL (> or = 4.0); Vitamin B12 1215 pg/mL (200-900)
== END 2023-05-11 09:01 | disposition home or self-care (01) ==
LOC: HO.LAB 09:00
PROVIDERS: PCP Internal Medicine; Visit Provider Internal Medicine
DX: I25.10 Atherosclerotic heart disease of native coronary artery without angina pectoris (principal); E78.00 Pure hypercholesterolemia, unspecified; D64.9 Anemia, unspecified
CPT/HCPCS: 36415; 80053; 80061; 82607; 82728; 82746; 83036; 83540; 84439; 84443; 85025; 85045

== ENCOUNTER 2023-05-16 11:01 | Outpatient (AMB) | payer MEDICARE, MEDICAID, SELFPAY ==
[2022-11-01 08:04] VITALS: BP 122/60; BP 128/64; BMI 24.3
--- NOTE | 2023-05-16 11:12 | A.OFFPC_ITS ---
Vital Signs 05/16/23 11:14 Height 5 ft 7 in Weight 159 lb 6 oz BMI 25.0 BP 130/70 Blood Pressure Location Lt brachial Position Sitting Pulse 71 Pulse Source Pulse Oximeter Pulse Oximetry (%) 98 Oxygen Delivery Method Room Air Intake Visit Reasons: DM Intake Note: Patient is here to follow up on DM. General Service Technician Required: No Employment Law Specialist: Present Accompanied by: Spouse Allergies penicillin V Allergy (Unknown, Verified 05/16/23 11:14) Rash Penicillins [PENICILLINS] Allergy (Unknown, Verified 05/16/23 11:14) RASH penicillin Allergy (Unknown, Uncoded 05/16/23 11:14) rash Medication List - Last Reconciled 05/16/23 by Petty Riley MD apixaban (Eliquis) 5 mg PO BID aspirin (Adult Low Dose Aspirin) 81 mg PO DAILY atorvastatin 40 mg PO DAILY 100 days blood sugar diagnostic 1 strip miscellaneous QID 100 days cyanocobalamin (vitamin B-12) 1,000 mcg PO DAILY 100 days [DIABETIC SHOES As directed] finasteride 5 mg PO DAILY 100 days insulin detemir U-100 20 units (0.2 mL) subcut BEDTIME lisinopril 2.5 mg PO DAILY Novolog FlexPen U-100 Insulin (insulin aspart U-100) 10 units (0.1 mL) subcut TID 100 days NS pen needle, diabetic (BD Ultra-Fine Licha Pen Needle) As directed 6 times per day Tobacco use date assessed: 05/16/23 Fall risk assessment: No Falls in past year Last assessed Fall Risk: 05/16/23 Dental Screening Dental Screen Date: 05/16/23 Did you have a dental visit in the last 12 months?: Yes Did you have a dental problem in the last 6 months where you did not have access to dental care?: No Was dental information given to patient?: Patient has dentist HPI DM HPI Details 77-year-old male with diabetes mellitus hypercholesterolemia atherosclerotic heart disease BPH atrial fibrillation status post aortic valve replacement coming in for follow-up last seen in January 2023. [facility] Medical History (Updated 02/02/23 @ 12:57 by Petty Riley MD) Screening for hypothyroidism Atherosclerotic cardiovascular disease BPH (benign prostatic hyperplasia) Lumbar degenerative disc disease Finger fracture, left Hypercholesterolemia Hypertension Type 2 diabetes mellitus with hyperglycemia Surgical History S/P triple vessel bypass History of toe surgery History of cataract surgery Family History Family/Other No problems noted. Mother CHF (congestive heart failure) Social History Housing: House Alcohol intake: never Patient Tobacco Use Status: Never used Tobacco e-Cigarette/Vaping Use: Never Used Second Hand Smoke Exposure: No service: No Current occupational status: retired Cognitive needs: No Hearing needs: No Vision needs: Yes Questionnaire PHQ-9 Over the last 2 weeks, how often have you been bothered by any of the following problems? 1. Little interest or pleasure in doing things: not at all 2. Feeling down, depressed, or hopeless: not at all 3. Trouble falling or staying asleep, or sleeping too much: not at all 4. Feeling tired or having little energy: not at all 5. Poor appetite or overeating: not at all 6. Feeling bad about yourself - or that you are a failure or have let yourself or your family down: not at all 7. Trouble concentrating on things, such as reading the newspaper or watching television: not at all 8. Moving or speaking so slowly that other people could have noticed. Or the opposite - being so fidgety or restless that you have been moving around a lot more than usual: not at all 9. Thoughts that you would be better off or of hurting yourself in some way: not at all Total score: 0 Depression Screening Interpretation: Negative Depression Screening Done: Yes Source: Developed by Drs. Rocael Crespo, Elizabeth Cordero, Norm Cherry and colleagues, with an educational barbara from [employer]. Thrive Questionnaire Date Thrive assessed: 05/16/23 I am a: Patient What is your living situation today?: I have a steady place to live Within the past 12 months, did the food you bought not last and you didn't have the money to get more?: Never true Within the past 12 months, did you worry whether your food would run out before you got money to buy more?: Never true Do you have trouble paying for medicines?: No Do you have trouble getting transportation to medical appointments?: No Do you have trouble paying your heating and electricity bill?: No Do you have trouble taking care of your child, family member or friend?: No Do you have trouble with day-to-day activities such as bathing, preparing meals, shopping, managing finances, etc.?: No Are you currently unemployed and looking for a job?: No Are you interested in more education?: No Currently or been in a relationship where the following occur: no concerns reported THRIVE Score: 0 AUDIT C Alcohol Use Questionnaire (AUDIT-C) 1. How often do you have a drink containing alcohol?: Never Total Score: 0 KENDELL-7 AMB Questionnaire KENDELL-7 Date KENDELL - 7 assessed: 05/16/23 Feeling nervous, anxious, or on edge: 0 = Not at all Not being able to stop or control worryin = Not at all Worrying too much about different things: 0 = Not at all Trouble relaxin = Not at all Being so restless that it is hard to sit still: 0 = Not at all Becoming easily annoyed or irritable: 0 = Not at all Feeling afraid as if something awful might happen: 0 = Not at all Total KENDELL-7 score (0-4 normal; 5-9 mild; 10-14 moderate; 15-21 severe): 0 Source: Developed by Drs. Rocael Crespo, Elizabeth Cordero, Norm Cherry and colleagues, with an educational barbara from [employer]. Physical exam (Primary Care) Vital Signs: Last Vital Signs Pulse 71 05/16/23 11:14 BP 130/70 05/16/23 11:14 Pulse Ox 98 05/16/23 11:14 Oxygen Delivery Method Room Air 05/16/23 11:14 BMI result Body Mass Index 25.0 Tobacco/Smoking Status: Tobacco use Status Tobacco use date assessed 05/16/23 05/16/23 11:17 Patient Tobacco Use Status Never used Tobacco 05/16/23 11:17 e-Cigarette/Vaping Use Never Used 05/16/23 11:17 PHQ-9: PHQ-9 Score PHQ-9: Total score 0 05/16/23 12:07 Depression Screening Interpretation: Negative Thrive Assessment: Date of Thrive Assessment Date Thrive assessed 05/16/23 05/16/23 11:17 Currently or been in a relationship where the following occur: no concerns reported Const General: alert; No acute distress Eyes Conjunctivae: conjunctivae normal Resp Auscultation: clear to auscultation bilaterally Cardio Rate: regular rate Rhythm: regular rhythm GI Inspection: Yes normal to inspection Extrem General: Yes normal to inspection and No edema Immunizations tetanus-diphtheria toxoids-Td 2 Lf unit-2 Lf unit/0.5 mL IM suspension Performing Provider: Petty Riley MD [facility] Administered by: MACY Tapia on 05/16/23 12:15 Dose Route Admin Location Dispensed Lot Number Expiration Date 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 Marquis Code(s): Z95.2 - Presence of prosthetic heart valve Plan: Continue to follow up with Cardiology (3) Atherosclerotic cardiovascular disease: Comment: Coronary artery bypass graft x3 April [address] Marquis Code(s): I25.10 - Atherosclerotic heart disease of [place] coronary artery without angina pectoris Plan: Control the cholesterol, weight, blood pressure, diabetes presently on anticoagulation (4) Type 2 diabetes mellitus with hyperglycemia: Comment: Dr. 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 Hemoglobin A1c goal of less than 7.0. Patient on insulin long-acting and short-acting (5) Hypercholesterolemia: Code(s): E78.00 - Pure hypercholesterolemia, unspecified Plan: Avoid fried foods, chicken skin, eggs, butter margarine, pastries and meat. Be it pork or beef they have a lot of cholesterol on atorvastatin 40 mg once a day (6) BPH (benign prostatic hyperplasia): Code(s): N40.0 - Benign prostatic hyperplasia without lower urinary tract symptoms Qualifiers: Lower urinary tract symptom detail: urinary frequency Lower urinary tract symptom presence: symptoms present Qualified Code(s): N40.1 - Benign prostatic hyperplasia with lower urinary tract symptoms; R35.0 - Frequency of micturition Plan: Continue with finasteride 5 mg once a day (7) Ulcer of toe of left foot: Code(s): L97.529 - Non-pressure chronic ulcer of other part of left foot with unspecified severity Plan: Patient follows up with Podiatry and has had debridement Orders: Orders Td State Immunization Today Z23 - Encounter for immunization Medications: New lisinopril 2.5 mg PO DAILY 30 tabs 3RF E11.65 - Type 2 diabetes mellitus with hyperglycemia, Z79.4 - long-term (current) use of insulin Coding Level of Care Code Est Pt Level 4 (80169) Diagnoses PAF (paroxysmal atrial fibrillation) I48.0 Status post aortic valve replacement Z95.2 Atherosclerotic cardiovascular disease I25.10 Type 2 diabetes mellitus with hyperglycemia, with long-term current use of insulin E11.65; Z79.4 Diabetes mellitus termite control representative insulin use: with termite control representative use Hypercholesterolemia E78.00 Benign prostatic hyperplasia with urinary frequency N40.1; R35.0 Lower urinary tract symptom detail: urinary frequency Lower urinary tract symptom presence: symptoms present Ulcer of toe of left foot L97.529
[2023-05-16 11:14] VITALS: BP 130/70; PULSE 71; O2SAT 98; BMI 25.0
== END 2023-05-16 12:16 | disposition home or self-care (01) ==
PROVIDERS: PCP Internal Medicine; Visit Provider Internal Medicine
DX: I48.0 Paroxysmal atrial fibrillation (principal); E11.65 Type 2 diabetes mellitus with hyperglycemia; Z79.4 Long term (current) use of insulin; Z23 Encounter for immunization; L97.529 Non-pressure chronic ulcer of other part of left foot with unspecified severity; Z95.2 Presence of prosthetic heart valve; I25.10 Atherosclerotic heart disease of native coronary artery without angina pectoris; E78.00 Pure hypercholesterolemia, unspecified; N40.1 Benign prostatic hyperplasia with lower urinary tract symptoms; R35.0 Frequency of micturition
CPT/HCPCS: 90471; 90714; 99214

== ENCOUNTER 2023-09-08 11:41 | Outpatient (AMB) | payer MEDICARE, MEDICAID, SELFPAY ==
[2022-11-01 08:04] VITALS: BP 122/60; BP 128/64; BMI 24.3
--- NOTE | 2023-09-08 11:43 | MHC.PC.OV ---
Vital Signs 09/08/23 11:44 Height 5 ft 7 in Weight 159 lb 0.2 oz BMI 24.9 BP 136/82 Blood Pressure Location Lt brachial Position Sitting Pulse 61 Pulse Oximetry (%) 98 Oxygen Delivery Method Room Air Intake Visit Reasons: 3 Month F/U Allergies penicillin V Allergy (Unknown, Verified 09/08/23 11:49) Rash Penicillins [PENICILLINS] Allergy (Unknown, Verified 09/08/23 11:49) RASH penicillin Allergy (Unknown, Uncoded 09/08/23 11:49) rash Tobacco use date assessed: 05/16/23 Fall risk assessment: No Falls in past year Last assessed Fall Risk: 09/08/23 Dental Screening Dental Screen Date: 05/16/23 HPI 3 Month F/U HPI Details 78-year-old male with diabetes mellitus atrial fibrillation status post aortic valve replacement CAD hypercholesterolemia BPH last seen in 06/01/2023. Patient's last colonoscopy was in 2011. Concern about an left foot toe ulcer. Being seen by Podiatry has had cutting and paring. this foot is better. problem with long acting insulin favors basaglar. dermatology - problem with nasal cancer.impacted cerumen [facility] Medical History (Updated 09/08/23 @ 12:28 by Petty Riley MD) Screening for hypothyroidism Atherosclerotic cardiovascular disease BPH (benign prostatic hyperplasia) Lumbar degenerative disc disease Finger fracture, left Hypercholesterolemia Hypertension Type 2 diabetes mellitus with hyperglycemia Surgical History S/P triple vessel bypass History of toe surgery History of cataract surgery Family History Family/Other No problems noted. Mother CHF (congestive heart failure) Social History Housing: House Alcohol intake: never Patient Tobacco Use Status: Never used Tobacco e-Cigarette/Vaping Use: Never Used Second Hand Smoke Exposure: No service: No Current occupational status: retired Cognitive needs: No Hearing needs: No Vision needs: Yes Questionnaire Thrive Questionnaire Date Thrive assessed: 05/16/23 AUDIT C Alcohol Use Questionnaire (AUDIT-C) 1. How often do you have a drink containing alcohol?: Never Total Score: 0 KENDELL-7 AMB Questionnaire KENDELL-7 Date KENDELL - 7 assessed: 05/16/23 Source: Developed by Drs. Rocael Crespo, Elizabeth Cordero, Norm Cherry and colleagues, with an educational barbara from [employer]. Physical exam (Primary Care) Vital Signs: Last Vital Signs Pulse 61 09/08/23 11:44 BP 136/82 09/08/23 11:44 Pulse Ox 98 09/08/23 11:44 Oxygen Delivery Method Room Air 09/08/23 11:44 BMI result Body Mass Index 24.9 Tobacco/Smoking Status: Tobacco use Status Tobacco use date assessed 05/16/23 09/08/23 11:43 Patient Tobacco Use Status Never used Tobacco 09/08/23 11:43 e-Cigarette/Vaping Use Never Used 09/08/23 11:43 Thrive Assessment: Date of Thrive Assessment Date Thrive assessed 05/16/23 09/08/23 11:43 Const General: alert; No acute distress Eyes Conjunctivae: conjunctivae normal Resp Auscultation: clear to auscultation bilaterally Cardio Rate: regular rate Rhythm: regular rhythm GI Inspection: Yes normal to inspection Extrem General: Yes normal to inspection and No edema Office Procedures Cerumen Removal From which ear canal was the cerumen removed: bilateral Removal: irrigation, otoscope w/curette, cerumen loop/spoon and other Notes: patient tolerated procedure well, no complications and ear canal clear [id number] Irrigation/Lavage Results AMB Hemoglobin A1c AMB Hemoglobin A1c 7.1 % Last Edit by MACY Mcdowell on 09/08/23 11:56 Results Reviewed Results Reviewed: Laboratory Last Values Hgb A1c (Clinic) 7.1 % (4.0-6.0) H 09/08/23 11:55 Assessment and Plan Assessment & Plan (1) Type 2 diabetes mellitus with hyperglycemia: Comment: Dr. 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 Hemoglobin A1c goal of less than 7.0. Patient on insulin Tresiba and NovoLog sliding scale. Patient does have anemia. (2) Hypertension: Code(s): I10 - Essential (primary) hypertension Qualifiers: Hypertension type: essential hypertension Qualified Code(s): I10 - Essential (primary) hypertension Plan: Continue with blood pressure medication. Decrease salt intake and exercise on lisinopril 2.5 mg once a day (3) Hypercholesterolemia: Code(s): E78.00 - Pure hypercholesterolemia, unspecified Plan: Avoid fried foods, chicken skin, eggs, butter margarine, pastries and meat. Be it pork or beef they have a lot of cholesterol atorvastatin 40 mg once a day LDL goal of less than 70 and triglyceride of less than 150. (4) BPH (benign prostatic hyperplasia): Code(s): N40.0 - Benign prostatic hyperplasia without lower urinary tract symptoms Qualifiers: Lower urinary tract symptom presence: symptoms present Lower urinary tract symptom detail: urinary frequency Qualified Code(s): N40.1 - Benign prostatic hyperplasia with lower urinary tract symptoms; R35.0 - Frequency of micturition Plan: On finasteride continue with medication (5) Peripheral vascular disease: Comment: Laser atherectomy and balloon angioplasty left anterior tibial artery july 2020 Dr. Amaral Code(s): I73.9 - Peripheral vascular disease, unspecified Plan: When sitting down elevate the legs, exercise, and support stockings (6) PAF (paroxysmal atrial fibrillation): Code(s): I48.0 - Paroxysmal atrial fibrillation Plan: Continuing with anticoagulation (7) Anemia: Code(s): D64.9 - Anemia, unspecified Plan: Continue to monitor (8) Ulcer of toe of left foot: Code(s): L97.529 - Non-pressure chronic ulcer of other part of left foot with unspecified severity Plan: Continue to follow-up with podiatry (9) Impacted cerumen of both ears: Code(s): H61.23 - Impacted cerumen, bilateral Plan: scoop and irrigation done bilateral TM intact Orders: Orders AMB Hemoglobin A1c Today E11.65 - Type 2 diabetes mellitus with hyperglycemia, Z79.4 - predatory animal exterminator (current) use of insulin Medications: New insulin glargine (Basaglar KwikPen U-100 Insulin) or as directed 24 units (0.24 mL) subcut QAM 15 mL 12RF E11.65 - Type 2 diabetes mellitus with hyperglycemia, Z79.4 - predatory animal exterminator (current) use of insulin Discontinued insulin degludec (Tresiba FlexTouch U-100 insulin) Discontinued Reason: Doctor's Order 10 units (0.1 mL) subcut DAILY 15 mL 3RF E11.65 - Type 2 diabetes mellitus with hyperglycemia, Z79.4 - predatory animal exterminator (current) use of insulin Coding Level of Care Code Est Pt Level 4 (97066) Complex EM visit Add On G2211 Diagnoses Type 2 diabetes mellitus with hyperglycemia, with long-term current use of insulin E11.65; Z79.4 Diabetes mellitus intermediate school teacher insulin use: with intermediate school teacher use Essential hypertension I10 Hypertension type: essential hypertension Hypercholesterolemia E78.00 Benign prostatic hyperplasia with urinary frequency N40.1; R35.0 Lower urinary tract symptom presence: symptoms present Lower urinary tract symptom detail: urinary frequency Peripheral vascular disease I73.9 PAF (paroxysmal atrial fibrillation) I48.0 Anemia D64.9 Ulcer of toe of left foot L97.529 Impacted cerumen of both ears H61.23 CPT Codes Office Procedure - CPT: 34590-Euc Irrigation/Lavage ([id number])
[2023-09-08 11:44] VITALS: BP 136/82; PULSE 61; O2SAT 98; BMI 24.9
== END 2023-09-08 12:33 | disposition home or self-care (01) ==
PROVIDERS: PCP Internal Medicine; Visit Provider Internal Medicine
DX: E11.65 Type 2 diabetes mellitus with hyperglycemia (principal); Z79.4 Long term (current) use of insulin; I10 Essential (primary) hypertension; E78.00 Pure hypercholesterolemia, unspecified; H61.23 Impacted cerumen, bilateral; N40.1 Benign prostatic hyperplasia with lower urinary tract symptoms; R35.0 Frequency of micturition; D64.9 Anemia, unspecified
CPT/HCPCS: 69210; 83036; 99214

== ENCOUNTER 2023-09-28 10:15 | Outpatient (AMB) | payer MEDICARE, MEDICAID, SELFPAY ==
[2022-11-01 08:04] VITALS: BP 122/60; BP 128/64; BMI 24.3
[2023-09-28 10:27] VITALS: BP 130/66; PULSE 63; BMI 24.4
--- NOTE | 2023-09-28 10:27 | A.OFFVIS_ITS ---
Vital Signs 09/28/23 10:27 Height 5 ft 7 in Weight 155 lb 10.342 oz BMI 24.4 BP 130/66 Blood Pressure Location Lt brachial Position Sitting Pulse 63 Pulse Source Pulse Oximeter Intake Visit Reasons: 1 yr follow up Clinical Systems Educator Required: No Accompanied by: Spouse Allergies penicillin V Allergy (Unknown, Verified 09/08/23 11:49) Rash Penicillins [PENICILLINS] Allergy (Unknown, Verified 09/08/23 11:49) RASH penicillin Allergy (Unknown, Uncoded 09/08/23 11:49) rash Medication List - Last Reconciled 09/28/23 by Collins Levine MD apixaban (Eliquis) 5 mg PO BID aspirin (Adult Low Dose Aspirin) 81 mg PO DAILY atorvastatin 40 mg PO DAILY 100 days blood sugar diagnostic 1 strip miscellaneous QID 100 days cyanocobalamin (vitamin B-12) 1,000 mcg PO DAILY 100 days [DIABETIC SHOES As directed] finasteride 5 mg PO DAILY 100 days insulin glargine (Basaglar KwikPen U-100 Insulin) 24 units (0.24 mL) subcut QAM lisinopril 2.5 mg PO DAILY Novolog FlexPen U-100 Insulin (insulin aspart U-100) 10 units (0.1 mL) subcut TID 100 days NS pen needle, diabetic (BD Ultra-Fine Licha Pen Needle) As directed 6 times per day HPI Comments Details: Arsenio returns for follow-up regarding coronary artery disease. He was having exertional cardiac symptoms and that led to workup showing multivessel coronary disease as well as severe aortic stenosis. Underwent coronary artery bypass surgery and aortic valve replacement. Overall, no new complaints. No angina or shortness of breath or in fact anything cardiac sounding. According to , he is we active at home and does everything with no limitations. [facility] Medical History (Updated 09/28/23 @ 10:34 by Collins Levine MD) Screening for hypothyroidism Atherosclerotic cardiovascular disease BPH (benign prostatic hyperplasia) Lumbar degenerative disc disease Finger fracture, left Hypercholesterolemia Hypertension Type 2 diabetes mellitus with hyperglycemia Surgical History S/P triple vessel bypass History of toe surgery History of cataract surgery Family History Family/Other No problems noted. Mother CHF (congestive heart failure) Social History Housing: House Alcohol intake: never Patient Tobacco Use Status: Never used Tobacco e-Cigarette/Vaping Use: Never Used Second Hand Smoke Exposure: No service: No Current occupational status: retired Cognitive needs: No Hearing needs: No Vision needs: Yes Review of Systems Const Denies chills, Denies fatigue, Denies fever(s), Denies weight gain and Denies weight loss ENT Denies dizziness Card Denies chest pain, Denies leg edema, Denies lightheadedness, Denies palpitations, Denies dyspnea on exertion, Denies orthopnea and Denies other Resp Denies cough and Denies dyspnea on exertion GI Denies hematochezia and Denies change in stool character Musc Denies abnormal gait, Denies muscle weakness, Denies numbness, Denies radiating pain into limb and Denies tingling Neuro Denies abnormal gait, Denies dizziness, Denies numbness and Denies tingling Endo Denies fatigue and Denies palpitations Physical Exam Vital Signs: Last Vital Signs Pulse 63 09/28/23 10:27 BP 130/66 09/28/23 10:27 BMI result Body Mass Index 24.4 Const General: comfortable and no acute distress Orientation/consciousness: patient oriented x3 HEENT Other: Unremarkable Head: Yes normal to inspection Neck Neck: Yes normal visual inspection Chest Chest palpation & inspection: normal inspection of the chest Resp Auscultation: clear to auscultation bilaterally Cardio Palpation: normal PMI Heart sounds: S1 normal heart sound present, S2 normal heart sound present, no gallops, no murmurs and no rubs GI Palpation (GI): Soft to palpation Back/Spine/Pelvis Other: unremarkable Skin General skin exam: no rashes or lesions noted Neuro General: patient oriented x3 Extrem General: Yes normal to inspection Psych Mental Status: mental status grossly normal Office Procedures EKG Details: EKG with sinus rhythm at 61/Min; low voltage QRS complexes; [place] [id number], Complete Assessment & Plan Assessment & Plan (1) Atherosclerotic cardiovascular disease: Code(s): I25.10 - Atherosclerotic heart disease of [place] coronary artery without angina pectoris Category: Medical Plan: Doing well. As he is already on Eliquis, we can stop the aspirin. Continue statins. Last LDL 67 mg/dL. (2) Status post aortic valve replacement: Code(s): Z95.2 - Presence of prosthetic heart valve Category: Surgical Plan: #23 Bioprosthetic AVR. Infective endocarditis prophylaxis per protocol. In the echocardiogram, normally functioning bioprosthetic aortic valve. (3) PAF (paroxysmal atrial fibrillation): Code(s): I48.0 - Paroxysmal atrial fibrillation Category: Medical Plan: Postoperative atrial fibrillation. He was on short-term amiodarone but now di scontinued. On Eliquis. (4) Hypertension: Code(s): I10 - Essential (primary) hypertension Category: Medical Qualifiers: Hypertension type: essential hypertension Qualified Code(s): I10 - Essential (primary) hypertension Plan: On low-dose lisinopril. Stable. (5) Type 2 diabetes mellitus with hyperglycemia: Comment: Dr. 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 Last hemoglobin A1c is 7.3%. 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
== END 2023-09-28 10:54 | disposition home or self-care (01) ==
PROVIDERS: PCP Internal Medicine; Visit Provider Internal Medicine
DX: I25.10 Atherosclerotic heart disease of native coronary artery without angina pectoris (principal); Z95.2 Presence of prosthetic heart valve; I48.0 Paroxysmal atrial fibrillation; I10 Essential (primary) hypertension; E11.65 Type 2 diabetes mellitus with hyperglycemia; Z79.4 Long term (current) use of insulin
CPT/HCPCS: 93010; 99214

== ENCOUNTER → 2023-09-28 10:15 | Outpatient (BNVA) | payer MEDICARE, MEDICAID, SELFPAY ==
[2022-11-01 08:04] VITALS: BP 122/60; BP 128/64; BMI 24.3
== END ==
PROVIDERS: PCP Internal Medicine; Visit Provider Internal Medicine
DX: I25.10 Atherosclerotic heart disease of native coronary artery without angina pectoris (principal); I48.0 Paroxysmal atrial fibrillation; I10 Essential (primary) hypertension; E11.65 Type 2 diabetes mellitus with hyperglycemia; Z79.01 Long term (current) use of anticoagulants; Z79.4 Long term (current) use of insulin; Z79.899 Other long term (current) drug therapy; Z95.2 Presence of prosthetic heart valve
CPT/HCPCS: 93005; 99212

== ENCOUNTER 2024-01-13 15:45 | Outpatient (AMB) | payer MEDICARE, MEDICAID, SELFPAY ==
[2022-11-01 08:04] VITALS: BP 122/60; BP 128/64; BMI 24.3
--- NOTE | 2024-01-13 15:53 | A.OFFPC_ITS ---
Vital Signs 01/13/24 15:55 Height 5 ft 7 in Weight 158 lb 4 oz BMI 24.8 BP 130/72 Blood Pressure Location Lt brachial Position Sitting Pulse 69 Pulse Source Pulse Oximeter Pulse Oximetry (%) 97 Oxygen Delivery Method Room Air Intake Visit Reasons: 3 Month Follow Up Intake Note: Patient is here to follow up on PAF, DM, HTN. Brick And Block Mason Required: No Controls Design Engineer: Present Accompanied by: Spouse Allergies penicillin V Allergy (Unknown, Verified 01/13/24 16:01) Rash Penicillins [PENICILLINS] Allergy (Unknown, Verified 01/13/24 16:01) RASH penicillin Allergy (Unknown, Uncoded 01/13/24 16:01) rash Tobacco use date assessed: 01/13/24 Fall risk assessment: No Falls in past year Last assessed Fall Risk: 01/13/24 Dental Screening Dental Screen Date: 05/16/23 HPI 3 Month Follow Up HPI Details [age] Year old male with diabetes hypertension hypercholesterolemia BPH peripheral vascular disease atrial fibrillation coming in for follow-up. Last seen in 09/01/2023. Patient's colonoscopy last done in 2011. Patient had a preop for Mohs surgery of the nose flap. September patient was seen by Cardiology on anticoagulation prosthetic valve functioning normally aortic valve continue with anticoagulationPAtient had the mohs surgery 12/14/2023 has a 2nd surgery to be done planned [facility] Medical History (Updated 09/28/23 @ 10:34 by Collins Levine MD) Screening for hypothyroidism Atherosclerotic cardiovascular disease BPH (benign prostatic hyperplasia) Lumbar degenerative disc disease Finger fracture, left Hypercholesterolemia Hypertension Type 2 diabetes mellitus with hyperglycemia Surgical History (Updated 01/13/24 @ 16:47 by Petty Riley MD) History of facial surgery S/P triple vessel bypass History of toe surgery History of cataract surgery Family History Family/Other No problems noted. Mother CHF (congestive heart failure) Social History Housing: House Alcohol intake: never Patient Tobacco Use Status: Never used Tobacco e-Cigarette/Vaping Use: Never Used Second Hand Smoke Exposure: No service: No Current occupational status: retired Cognitive needs: No Hearing needs: No Vision needs: Yes Questionnaire Thrive Questionnaire Date Thrive assessed: 05/16/23 KENDELL-7 AMB Questionnaire KENDELL-7 Date KENDELL - 7 assessed: 05/16/23 Source: Developed by Drs. Rocael Crespo, Elizabeth Cordero, Norm Cherry and colleagues, with an educational barbara from [employer]. Review of Systems Const Denies poor appetite and Denies weakness Eyes Denies no additional complaints ENT Reports Normal hearing present, Denies dizziness, Denies nasal congestion, Denies tinnitus and Denies sore throat Card Denies chest pain, Denies syncope, Denies rapid heart rate and Denies dyspnea Resp Denies cough and Denies dyspnea GI Denies change in stool character, Reports constipation, Denies diarrhea, Denies nausea and Denies vomiting Denies dysuria and Denies urinary frequency Neuro Reports Normal hearing present, Denies confusion, Denies dizziness, Denies syncope and Denies weakness Psych Denies confusion Physical exam (Primary Care) Vital Signs: Last Vital Signs Pulse 69 01/13/24 15:55 BP 130/72 01/13/24 15:55 Pulse Ox 97 01/13/24 15:55 Oxygen Delivery Method Room Air 01/13/24 15:55 BMI result Body Mass Index 24.8 Tobacco/Smoking Status: Tobacco use Status Tobacco use date assessed 01/13/24 01/13/24 16:03 Patient Tobacco Use Status Never used Tobacco 01/13/24 16:03 e-Cigarette/Vaping Use Never Used 01/13/24 16:03 Thrive Assessment: Date of Thrive Assessment Date Thrive assessed 05/16/23 01/13/24 16:03 Const General: No confusion Orientation/consciousness: No confusion Eyes Conjunctivae: conjunctivae normal Resp Auscultation: clear to auscultation bilaterally Cardio Rate: regular rate Rhythm: regular rhythm GI Inspection: Yes normal to inspection Neuro General: No confusion Cranial nerves: Yes Normal hearing present Extrem General: Yes normal to inspection and No edema Office Procedures Flu Questionnaire Does the patient have a severe egg allergy?: No Does the patient have severe life threatening allergies?: No Does the patient have a fever or illness today?: No Has the patient ever had Guillain-[place] Syndrome?: No Has the patient ever had any past reaction to a flu shot?: No Results AMB Hemoglobin A1c AMB Hemoglobin A1c 7.6 % Last Edit by MACY Pastrana on 01/13/24 16:13 Immunizations Fluarix Triv 0814-6945 (PF) 45 mcg (15 mcg x 3)/0.5 mL IM syringe Performing Provider: Petty Riley MD [facility] Administered by: ABUNDIO Ferrer on 01/13/24 16:51 Dose Route Admin Location Dispensed Lot Number Expiration Date NDC Hands Assembler 0.5 mL IM Left Deltoid 0.5 mL [id number] 09/10/24 80419-916-50 [employer] VIS Given Date VIS Provided VIS Publication Date 01/13/24 Single Vaccine 20 Eligibility Eligibility Date Funding Source Not [facility] Eligible 01/13/24 Private Results Reviewed Results Reviewed: Laboratory Last Values Hgb A1c (Clinic) 7.6 % (4.0-6.0) H 01/13/24 15:51 Coding Level of Care Code Est Pt Level 4 (34646) Complex EM visit Add On G2211 Diagnoses PAF (paroxysmal atrial fibrillation) I48.0 Status post aortic valve replacement Z95.2 Atherosclerotic cardiovascular disease I25.10 Type 2 diabetes mellitus with hyperglycemia, with long-term current use of insulin E11.65; Z79.4 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 Twice a day year blood work needs to be done. (2) Status post aortic valve replacement: Code(s): Z95.2 - Presence of prosthetic heart valve Category: Surgical Plan: Continue to follow up with Cardiology echocardiogram normal prosthetic valve function. (3) Atherosclerotic cardiovascular disease: Code(s): I25.10 - Atherosclerotic heart disease of [place] coronary artery without angina pectoris Category: Medical Plan: Control the cholesterol, weight, blood pressure, diabetes on anticoagulation. (4) Type 2 diabetes mellitus with hyperglycemia: Comment: Dr. Camilo in [place] Code(s): E11.65 - Type 2 diabetes mellitus with hyperglycemia Category: Medical Qualifiers: Diabetes mellitus penitentiary insulin use: with extermination inspector use Qualified Code(s): E11.65 - Type 2 diabetes mellitus with hyperglycemia; Z79.4 - termite control service representative (current) use of insulin Plan: Decrease the amount of carbohydrate intake, pasta, bread, rice and potatoes are all sugar and that is aside from all the sweet stuff, remember that fruits are good but they are Sweet also. Presently on Lantus 24 units once a day NovoLog sliding scale (5) Hypertension: Code(s): I10 - Essential (primary) hypertension Category: Medical Qualifiers: Hypertension type: essential hypertension Qualified Code(s): I10 - Essential (primary) hypertension Plan: Continue with blood pressure medication. Decrease salt intake and exercise takes lisinopril 2.5 mg once a day (6) Hypercholesterolemia: Code(s): E78.00 - Pure hypercholesterolemia, unspecified Category: Medical Plan: Avoid fried foods, chicken skin, eggs, butter margarine, pastries and meat. Be it pork or beef they have a lot of cholesterol LDL goal of less than 70 and triglyceride of less than 150 on atorvastatin 40 mg once a (7) BPH (benign prostatic hyperplasia): Code(s): N40.0 - Benign prostatic hyperplasia without lower urinary tract symptoms Category: Medical Qualifiers: Lower urinary tract symptom detail: urinary frequency Lower urinary tract symptom presence: symptoms present Qualified Code(s): N40.1 - Benign prostatic hyperplasia with lower urinary tract symptoms; R35.0 - Frequency of micturition Plan: Continue with finasteride. (8) Status post Mohs surgery: Code(s): Z98.890 - Other specified postprocedural states Category: Surgical Plan: Has a 2nd surgery pending Orders: Orders Comprehensive Met. Panel Today E11.65 - Type 2 diabetes mellitus with hyperglycemia, Z79.4 - [facility] (current) use of insulin IRON PROFILE Today E11.65 - Type 2 diabetes mellitus with hyperglycemia, Z79.4 - [facility] (current) use of insulin Hemoglobin A1c Today E11.65 - Type 2 diabetes mellitus with hyperglycemia, Z79.4 - [facility] (current) use of insulin Ferritin Today E11.65 - Type 2 diabetes mellitus with hyperglycemia, Z79.4 - termite control service representative (current) use of insulin Creatinine Urine Today E11.65 - Type 2 diabetes mellitus with hyperglycemia, Z79.4 - termite control service representative (current) use of insulin Microalbumin, Random (w Creat) Today E11.65 - Type 2 diabetes mellitus with hyperglycemia, Z79.4 - [facility] (current) use of insulin Complete Blood Count Auto Diff Today E11.65 - Type 2 diabetes mellitus with hyperglycemia, Z79.4 - [facility] (current) use of insulin Lipid Panel Today E11.65 - Type 2 diabetes mellitus with hyperglycemia, E78.00 - Pure hypercholesterolemia, unspecified, Z79.4 - [facility] (current) use of insulin Thyroid Stimulating Hormone Today E11.65 - Type 2 diabetes mellitus with hyperglycemia, Z79.4 - termite control service representative (current) use of insulin Free T4 (Free Thyroxine) Today E11.65 - Type 2 diabetes mellitus with hyperglycemia, Z79.4 - termite control service representative (current) use of insulin Vitamin B12 and Folate Today E11.65 - Type 2 diabetes mellitus with hyperglycemia, Z79.4 - termite control service representative (current) use of insulin Reticulocyte Count Today E11.65 - Type 2 diabetes mellitus with hyperglycemia, Z79.4 - termite control service representative (current) use of insulin AMB Hemoglobin A1c Today E11.65 - Type 2 diabetes mellitus with hyperglycemia, Z79.4 - termite control service representative (current) use of insulin Influenza [id number] Immunization Today Z23 - Encounter for immunization Medications: New Fluarix Triv 4433-6046 (PF) (flu vacc [id number] 6mos up(PF)) 0.5 mL IM ONCE 0.5 mL 0RF NS Z23 - Encounter for immunization
[2024-01-13 15:55] VITALS: BP 130/72; PULSE 69; O2SAT 97; BMI 24.8
== END 2024-01-13 16:50 | disposition home or self-care (01) ==
LOC: HO.HMCH 15:46
PROVIDERS: PCP Internal Medicine; Visit Provider Internal Medicine
DX: I48.0 Paroxysmal atrial fibrillation (principal); E11.65 Type 2 diabetes mellitus with hyperglycemia; Z79.4 Long term (current) use of insulin; Z95.2 Presence of prosthetic heart valve; I25.10 Atherosclerotic heart disease of native coronary artery without angina pectoris; I10 Essential (primary) hypertension; E78.00 Pure hypercholesterolemia, unspecified; N40.1 Benign prostatic hyperplasia with lower urinary tract symptoms; R35.0 Frequency of micturition; Z98.890 Other specified postprocedural states

== ENCOUNTER → 2024-01-13 15:45 | Outpatient (BNVA) | payer MEDICARE, MEDICAID, SELFPAY ==
[2022-11-01 08:04] VITALS: BP 122/60; BP 128/64; BMI 24.3
== END ==
PROVIDERS: PCP Internal Medicine; Visit Provider Internal Medicine
DX: Z23 Encounter for immunization (principal); I48.0 Paroxysmal atrial fibrillation; I25.10 Atherosclerotic heart disease of native coronary artery without angina pectoris; E11.65 Type 2 diabetes mellitus with hyperglycemia; I10 Essential (primary) hypertension; E78.00 Pure hypercholesterolemia, unspecified; N40.1 Benign prostatic hyperplasia with lower urinary tract symptoms; R35.0 Frequency of micturition; Z98.890 Other specified postprocedural states; Z79.4 Long term (current) use of insulin
CPT/HCPCS: 83036; 90471; 90656; 99212

== ENCOUNTER 2024-07-26 08:48 | Outpatient (REF) | payer MEDICARE, MEDICAID, SELFPAY ==
[2022-11-01 08:04] VITALS: BP 122/60; BP 128/64; BMI 24.3
[2024-07-26 09:04] LABS: MANUAL DIFF FLAG NO
--- OUTSIDE RECORDS SUMMARY | 2024-07-26 09:13 | XMS_ITS | Patient Health Record ---
Author [facility]ly [facility] Address [address] [facility] [place] [address] Care Team Providers Care Custodial Engineer Name Role Phone Petty Riley Primary Care Provider Rolando Carrion Unavailable [phone] Marcello Dawson Unavailable [phone] Allergies Allergen (clinical drug ingredient) Drug/Non Drug Allergy documented on EMR Reaction Allergy Type Onset Date Status Penicillin Unknown Drug Allergy Active Results Component Value Reference Range Notes HEMOGLOBIN A1C (GLYCOHEMOGLO BIN) Reviewed date:11/24/2023 12:16:08 PM Interpretation: Performing Lab: Notes/Report: HEMOGLOBIN A1C (HH) 7.1 HEMOGLOBIN A1C (GLYCOHEMOGLO BIN) Reviewed date:05/04/2024 11:52:58 AM Interpretation: Performing Lab: Notes/Report: HEMOGLOBIN A1C % (HH) 7.5 Reason For Referral No Information Medications Medication SIG (Take, Route, Frequency, Duration) Notes Start Date End Date Status Atorvastatin Calcium Active Finasteride Active Simvastatin 40 MG as directed Orally O nce a day Not-Taking Eliquis Active Lantus Not-Taking Lisinopril 2.5 MG 1 tablet Orally Once a day for 30 day(s) Active Lisinopril 40 MG 1 tablet Orally Once a day Not-Taking Vitamin B-12 Active Vitamin D Not-Taking Levemir Active Plavix Not-Taking NovoLOG Active Levaquin 500 MG 1 tablet Orally Once a day for 30 days 08/27/2020 Active Doxycycline Hyclate 100 MG 1 capsule Orally Once a day for 10 day(s) Not-Taking Ammonium Lactate 12 % 1 application Externally to affected areas of dry skin to feet except for between the toes Twice a day for 30 days Active baby asprin Active Immunizations Vaccine Route Administration Date Status Comme nts COVID-19 Pfizer BioNTech Vaccine Unknown 07/06/2021 Administered 1st 05/01/2020 2nd 05/24/2020 3rd 02/02/2021 Influenza Unknown 11/12/2021 Administered Influenza Unknown 01/12/2023 Administered Social History Tobacco Use: Social History Observation Description Date Details (start date - stop date) Never Smoker NA - NA Tobacco Use/Smoking Question Answer Notes Are you a: nonsmoker Additional Findings: Tobacco Non-User Current no n-smoker Alcohol Screen Question Answer Notes Did you have a drink containing alcohol in the p ast year? No Points 0 Interpretation Negative Tobacco use other than smoking: Question Answer Notes Are you an other tobacco user? No Problems Problem Type SNOMED Code ICD Code Onset Dates Problem Status W/U Status Risk Notes Problem Type 2 diabetes mellitus with peripheral angiopathy (913511260) Type 2 diabetes mellitus with diabetic peripheral angiopathy without gangrene (E11.51) Active confirmed Q7(A), Q8(2B), Q9(1B,2C) Vital Signs Blood pressure diastolic 85 mm Hg 07/24/2024 Height 5 ft 7in in 07/24/2024 Blood pressure systolic 123 mm Hg 07/24/2024 Weight 159 lbs 07/24/2024 BMI 24.9 kg/m2 07/24/2024 Procedures Procedure Date Ordered Date Performed Result Body Sit e 68996-WTYZ SKIN LESIONS, OVER 4 08/25/2023 N/A 52703-DNPNLSA NAIL, 6 OR MORE 05/04/2024 N/A 13368-JVNP SKIN LESIONS, OVER 4 05/04/2024 N/A 31172-TXRJEZM NAIL, 6 OR MORE 07/24/2024 N/A 50611-YPNB SKIN LESIONS, OVER 4 07/24/2024 N/A Encounters Encounter Location Date Provider Diagnosis [facility] [address] [place] [address] 08/25/2023 Marcello Dawson Skin disease L98.9 ; Type 1 diabetes [...] of skin L97.521 and Ingrowing nail L60.[address] [address] 11/24/2023 Marcello Dawson Skin disease L98.9 ; Type 1 diabetes [...] of skin L97.521 and Ingrowing nail L60.[address] [address] 05/04/2024 Rolando Stevenson Type 2 diabetes mellitus with diabetic peripheral angiopathy without gangrene E11.51 ; Tinea unguium B35.1 ; Pain in right toe(s) M79.674 ; Pain in left toe(s) M79.675 and Xerosis of skin L85.[address] [address] 07/24/2024 Rolando Stevenson Type 2 diabetes mellitus with diabetic peripheral angiopathy without gangrene E11.51 ; Tinea unguium B35.1 ; Pain in right toe(s) M79.674 ; Pain in left toe(s) M79.675 and Xerosis of skin L85.[address] [address] 08/02/[address] [address] 02/23/2024 Rolando Stevenson Assessments Encounter Date Diagnosis (ICD Code) Assessment Notes Treatment Notes Treatment Clinical Notes Section Notes 08/25/2023 Type 1 diabetes mellitus with diabetic polyneuropathy (ICD-10 - E10.42) 08/25/2023 Skin disease (ICD-10 - L98.9) 11/24/2023 Type 1 diabetes mellitus with diabetic polyneuropathy (ICD-10 - E10.42) 11/24/2023 Skin disease (ICD-10 - L98.9) 05/04/2024 Type 2 diabetes mellitus with diabetic peripheral angiopathy without gangrene (ICD-10 - E11.51) Q7(A), Q8(2B), Q9(1B,2C) 05/04/2024 Tinea unguium (ICD-10 - B35.1) 07/24/2024 Type 2 diabetes mellitus with diabetic peripheral angiopathy without gangrene (ICD-10 - E11.51) Q7(A), Q8(2B), Q9(1B,2C) 07/24/2024 Tinea unguium (ICD-10 - B35.1) 05/04/2024 Pain in right toe(s) (ICD-10 - M79.674) 07/24/2024 Pain in right toe(s) (ICD-10 - M79.674) 11/24/2023 Other hammer toe(s) (acquired), left foot (ICD-10 - M20.42) 08/25/2023 Other hammer toe(s) (acquired), left foot (ICD-10 - M20.42) 08/25/2023 Tinea unguium (ICD-10 - B35.1) 11/24/2023 Tinea unguium (ICD-10 - B35.1) 05/04/2024 Pain in left toe(s) (ICD-10 - M79.675) 07/24/2024 Pain in left toe(s) (ICD-10 - M79.675) 05/04/2024 Xerosis of skin (ICD-10 - L85.3) 07/24/2024 Xerosis of skin (ICD-10 - L85.3) 11/24/2023 Pain in right toe(s) (ICD-10 - M79.674) 08/25/2023 Pain in right toe(s) (ICD-10 - M79.674) 08/25/2023 Pain in left toe(s) (ICD-10 - M79.675) 11/24/2023 Pain in left toe(s) (ICD-10 - M79.675) 11/24/2023 Other hammer toe(s) (acquired), right foot (ICD-10 - M20.41) 08/25/2023 Other hammer toe(s) (acquired), right foot (ICD-10 - M20.41) 08/25/2023 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 - 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) 11/24/2023 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 - L97.521) 08/25/2023 Ingrowing nail (ICD-10 - L60.0) 11/24/2023 Ingrowing nail (ICD-10 - L60.0) Plan Of Treatment Pending Test Test Name Order Date X ray : Ankle, left 3V 07/07/2020 *Wound Culture 09/27/2022 Glucose Fasting 07/29/2014 X ray : Foot, left 3V 09/17/2020 X ray : Foot, left 3V 10/01/2020 X ray : Foot, left 3V 08/13/2020 37423-UQKQAWK NAIL, 6 OR MORE 05/04/2024 45834-UCBPQGI NAIL, 6 OR MORE 07/24/2024 12673-GUYQFVZ NAIL, 6 OR MORE 07/29/2014 09267-Jyrzbncp Plate 07/29/2014 48611-EATVORQ SKIN/TISSUE 07/21/2020 04652-KCGLQAX SKIN/TISSUE 10/01/2020 88933-ELLVLQT SKIN/TISSUE 10/07/2022 95553-XWNLLPQ SKIN/TISSUE 01/13/2023 52087-NBXMXBQ SKIN/TISSUE 02/21/2023 35428-YEMTVHX SKIN/TISSUE 07/07/2020 96742-NNZFZSR SKIN/TISSUE 08/13/2020 73338-RLIGRLF SKIN/TISSUE 08/27/2020 87123-WTPC SKIN LESIONS, OVER 4 05/04/19 25 78401-KBSS SKIN LESIONS, OVER 4 07/25/19 25 90746-SBIY SKIN LESIONS, OVER 4 08/25/19 24 41671-PTFC SKIN LESIONS, OVER 4 10/09/19 21 16392-MKVU SKIN LESIONS, OVER 4 02/24/20 21 82968-PMUP SKIN LESIONS, OVER 4 06/25/19 22 62213-GVDN SKIN LESIONS, OVER 4 07/08/19 21 95139-TJVD SKIN LESIONS, OVER 4 07/30/19 15 07664-XSOGAZXU OF HEMATOMA/FLUID 022 HEMOGLOBIN A1C (GLYCOHEMOGLOBIN) 023 Next Appt Details Provider Name:Rolando Bryce Stevenson , 11/02/2024 12:15:00 PM, [address] [place] [address], [phone], Insurance Providers Payer Name Payer Address Payer Phone Subscriber Number Group Number Insured Name Patient Relationship to Insured Coverage Start Date Coverage End Date [employer] Medicare Open [address] [place] [address] [phone] [id number] Arsenio Padilla Self - patient is the insured Medical (General) History Medical History History ICD Code Arthritis Chicken pox Measles Mumps Hypertensive renal disease type II diabetes Hypercholesterolemia Heart disease Surgical History Surgery Date(Month/Year) foot surgery, toe hand/wrist vein surgery 07/08/2020 Incision of bone cortex L2nd toe, excisi on of skin ulcer L2nd toe 09/11/20 triple bypass 04/21/22 valve surgery 04/21/22 Hospitalization History Reason Date(Month/Year) 1 Mon due to infection 04/21/22
--- OUTSIDE RECORDS SUMMARY | 2024-07-26 09:13 | XMS_ITS ---
Author Organization [facility] Address [address] [place] [address] Care Team Providers Care Manufacturing Business Analyst Name Role Phone Petty Riley Primary Care Provider Rolando Carrion Unavailable [phone] Allergies Allergen (clinical drug ingredient) Drug/Non Drug Allergy documented on EMR Reaction Allergy Type Onset Date Status Penicillin Unknown Drug Allergy Active REASON FOR VISIT At Risk Footcare, Painful Nail(s) aggravated by shoes and causing difficulty standing/walking, Skinproblem(s) Medications Medication SIG (Take, Route, Frequency, Duration) Notes Start Date End Date Status NovoLOG Active Doxycycline Hyclate 100 MG 1 capsule Orally Once a day for 10 day(s) Not-Taking Ammonium Lactate 12 % 1 application Externally to affected areas of dry skin to feet except for between the toes Twice a day for 30 days Active Lantus Not-Taking Lisinopril 40 MG 1 tablet Orally Once a day Not-Taking Levaquin 500 MG 1 tablet Orally Once a day for 30 days 08/27/2020 Active baby asprin Active Atorvastatin Calcium Active Finasteride Active Vitamin B-12 Active Simvastatin 40 MG as directed Orally O nce a day Not-Taking Eliquis Active Lisinopril 2.5 MG 1 tablet Orally Once a day for 30 day(s) Active Vitamin D Not-Taking Levemir Active Plavix Not-Taking Social History Tobacco Use: Social History Observation Description Date Details (start date - stop date) Never Smoker NA - NA Tobacco Use/Smoking Question Answer Notes Are you a: nonsmoker Additional Findings: Tobacco Non-User Current no n-smoker Tobacco use other than smoking: Question Answer Notes Are you an other tobacco user? No Vital Signs Height 5 ft 7in in 07/24/2024 Weight 159 lbs 07/24/2024 BMI 24.9 kg/m2 07/24/2024 Blood pressure systolic 123 mm Hg 07/25/19 Blood pressure diastolic 85 mm Hg 025 Procedures Procedure Date Ordered Date Performed Result Body Sit e 23086-FWHQVXD NAIL, 6 OR MORE 07/24/2024 N/A 41785-CGKQ SKIN LESIONS, OVER 4 07/24/2024 N/A Encounters Encounter Location Date Provider Diagnosis [facility] [address] [address] 07/24/2024 Rolandoyaneli GranadosGraham Type 2 diabetes mellitus with diabetic peripheral angiopathy without gangrene E11.51 ; Tinea unguium B35.1 ; Pain in right toe(s) M79.674 ; Pain in left toe(s) M79.675 and Xerosis of skin L85.3 Assessments Encounter Date Diagnosis (ICD Code) Assessment Notes Treatment Notes Treatment Clinical Notes Section Notes 07/24/2024 Type 2 diabetes mellitus with diabetic peripheral angiopathy without gangrene (ICD-10 - E11.51) Q7(A), Q8(2B), Q9(1B,2C) 07/24/2024 Tinea unguium (ICD-10 - B35.1) 07/24/2024 Pain in right toe(s) (ICD-10 - M79.674) 07/24/2024 Pain in left toe(s) (ICD-10 - M79.675) 07/24/2024 Xerosis of skin (ICD-10 - L85.3) Plan Of Treatment Pending Test Test Name Order Date [id number] NAIL, 6 OR MORE 07/24/2024 [id number]-[id number] SKIN LESIONS, OVER 4 07/25/19 25 Next Appt Details Follow Up: prn, Reason: Provider Name:Rolando Wu Graham , 11/02/2024 12:15:00 PM, [address] [place] [address], [id number], Procedure Notes * Category Sub-Category Detail Notes Debride Nail 6-10 Nail debridement Due to the cl inical pathology outlined in the exam findings, performance of this nail treatment is medically necessary as its management by an unskilled/untrained nonprofessional would put this patients foot and overall health at risk. Therefore, debridement to affected nail(s), as described in exam ( TA, T1, T2, T3, T4, T5, T6, T7, T8, T9 ), was performed exclusively by the physician of record to reduce/remove overall nail length, girth, thickness, subungual debris, and necrotic tissue, by manual and/or electrical means through the use of a nail nipper and/or dremel-type salvage grinder, to a more viable healthy nail plate or bed tissue 6-10 nails in total. Silver nitrate was used for any petechial bleeding as necessary. Definitive antifungal treatment options, both pharmaceutical and surgical, have been reviewed and discussed with the patient. The patient solely prefers the use of intermittent/as needed professional debridement services for their nail condition and understands the need for additional periodic treatments to maintain effectiveness in symptomatic relief - 29187 Keratoma Treatment Parring or Cutting o f Benign Hyperkeratotic Lesion(s) (-57) More than 4 Lesions - Due to the at risk nature of the patients medical condition as documented in the exam findings, performance of this keratoderma treatment is medically necessary as its management by an unskilled/untrained nonprofessional would put this patients foot and overall health at risk. Therefore, the benign hyperkeratotic lesions, ( 9 ) in total, locations as stated and described in the exam ( Medial plantar, IPJ, TA, Plantar, T2, Medial plantar, IPJ, T5, SUB MTH (s), 1, B/L, SUB MTH (s), 3, Left, SUB MTH (s), 5, Right, Plantar Heel(s), B/L ), were pared, and/or cut utilizing a sterile 15 blade, tissue nippers, and/or power dremel instrumentation by the physician of record - 82537, Q8 Progress Notes * ROBEL Arsenio GDOB:1945 (79 yo M)Acc No.[id number]:07/24/2024 Progress Note Patient:?Arsenio HUSTON Provider:?Rolando Stevenson DPM :1945???Age:79 Y???Sex:Male Rosalino e:07/24/2024 Address:[address], [place], [place] Pcp:Petty Riley Subjective: * Chief Complaints: * ???At Risk FootcarePainful N ail(s) aggravated by shoes and causing difficulty standing/walkingSkin problem(s) * HPI: ???At Risk footcare:?Pt States Last PCP Visit:?Date?05/03/2024 ?Misc?Patient accompanied by, ,JAIRO, who is physically present in exam room at time of visit.?Skin problems:?Treatments:?Medication ( AM Lactin ), states adherence to recommended treatment application.? * ROS:?General/Constitutional:?Nausea?denies.?Vomiting?denies.?Hunger Thirst?denies.?Loss appetite?denies.?Chills?denies.?Fatigue?denies.?Fever?denies.?Night Sweats?denies.?Unexplained weight loss?denies.?Unexplained weight gain?denies.?HEENTM:?Dentures?denies.?Dizziness?denies.?Glasses/contacts?denies.?Retinopathy?den ies.?Blurred/double vision?denies.?TMJ?denies.?Discharge/drainage?denies.?Implants?denies.?Sore throat?denies.?Dental implants?denies.?Hard of hearing ?denies.?Difficulty chewing/swallowing/speaking?denies.?Nose bleeds?denies.?Sore mouth?denies.?Respiratory:?On O xygen?denies.?Pneumonia/pleurisy?denies.?Bronchitis?denies.?Emphysema?denies.?Co ughing?denies.?Cough blood?denies.?Shortness of breath?denies.?Wheezing?denies.?Cardiovascular:?Pacemaker?denies.?MVP?denies.?WPW?denies.?CHF?denies.?Heart attack?denies.?Septal defect?denies.?Rapid beat?denies.?Chest pain ?denies.?Atrial Fib.?denies.?Murmur/Palpitations?denies.?Gastrointestinal:?Hemorrhoids?denies.?Stomach/Abdominal pain?denies.?Dark blood stool?denies.?Irritable bowel ?denies.?Constipation?denies.?Diarrhea?denies.?Hematology:?Swelling?denies.?Clots?denies.?Varicose Veins?denies.?Bruising?denies.?Bleeding problem?denies.?Genitourinary:?Blood urine?denies.?Frequent/Painfu/urination/bladder control?denies.?Kidney stones?denies.?Infection (UTI)?denies.?Nephropathy?denies.?sex trans dis (STD)?denies.?Prostate?denies.?Musculoskeletal:?Hammertoes?admits.?Bunions?denies.?Back Pain?denies.?Muscle Cramps/ Resting?denies.?Muscle cramps / walking?denies.?Generalized aches and pains?denies.?Weakness?denies.?Integ.:?Renteria?denies.?Scars?denies.?Corns/calluses?admits.?Ingrown nails?admits.?Painful nails?admits.?Open Sores?denies.?Rashes?denies.?Neurologic:?Difficulty sleeping?denies.?Brain disorder?denies.?Numbness?denies.?Balance t rouble?denies.?Confusion?denies.?Fainting/blackouts?denies.?Tingling?denies.?Lucio mors?denies.? * Medical History:? * Surgical History:?foot surge ry, toe hand/wrist vein surgery 07/08/2020Incision of bone cortex L2nd toe, excision of skin ulcer L2nd toe 09/11/20triple bypass 04/21/22valve surgery 04/21/22 * Hospitalization/Major Diagno stic Procedure:?1 Mon due to infection 04/21/22 * Family History:?Mother: dece ased, heart attack, diagnosed with Diabetic - NIDDM, Unspecified essential hypertension.?Father: .?Siblings: heart attack, kidney/liver disease, diagnosed with Diabetic - NIDDM, Family history of arthritis.? * Social History:?Tobacco Use:?Tobacco Use/Smoking?Are you a:?nonsmoker ?Additional Findings: Tobacco Non-User?Current non-smoker ?Tobacco use other than smoking?Are you an other tobacco user??No ???Miscellaneous:?Caffeine: yes, 3-5 cups per day. ?Children: yes. ?Exercise: yes, walking. ?Marital status: . 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 * Medications:?TakingLisinopri l 2.5 MG Tablet 1 tablet Orally Once a day Eliquis Levemir Vitamin B-12 Finasteride Atorvastatin Calcium baby asprin Levaquin 500 MG Tablet 1 tablet Orally Once a day NovoLOG Ammonium Lactate 12 % Cream 1 application Externally to affected areas of dry skin to feet except for between the toes Twice a day Taking Lisinopril 2.5 MG Tablet 1 tablet Orally Once a day Taking Eliquis Taking Levemir Taking Vitamin B-12 Taking Finasteride Taking Atorvastatin Calcium Taking baby asprin Taking Levaquin 500 MG Tablet 1 tablet Orally Once a day Taking NovoLOG Taking Ammonium Lactate 12 % Cream 1 application Externally to affected areas of dry skin to feet except for between the toes Twice a day Not-Taking/PRNDoxycycline Hyclate 100 MG Capsule 1 capsule Orally Once a day Lisinopril 40 MG Tablet 1 tablet Orally Once a day Lantus Plavix Vitamin D Simvastatin 40 MG Tablet as directed Orally Once a day Medication List reviewed and reconciled with the patientNot- Taking/PRN Doxycycline Hyclate 100 MG Capsule 1 capsule Orally Once a day Not-Taking/PRN Lisinopril 40 MG Tablet 1 tablet Orally Once a day Not-Taking/PRN Lantus Not-Taking/PRN Plavix Not-Taking/PRN Vitamin D Not-Taking/PRN Simvastatin 40 MG Tablet as directed Orally Once a day Medication List reviewed and reconciled with the patient * Allergies:?Penicillinyes[All ergies Verified] Objective: * Vitals:?Ht: 5 ft 7in, Wt: 15 9, BMI: 24.9, Shoe size: 8.5, BP: 123/85 mm Hg, BS: 86, Wt-k.12 kg. * ???Past Orders: ???Lab:HEMOGLOBIN A1C (GLYCO HEMOGLOBIN) (Order Date - 02/12/2024) (Collection Date & Time - 02/12/2024 11:52 AM) ? Value Reference Range ?HEMOGLOBIN A1C % (HH) 7.5 * Examination: ???Ophthalmology Referral: ?DIABETES EYE EXAM?Procedure Performed:?Yes ?Date of Exam Performed?01/14/2024 ?Diabetic Retinopathy Screening:?Yes ?Retinal Screening Performed:?Yes ?Findings of Diabetic Eye Exam:?no retinopathy?Vascular: ?DP PULSES (B):? 0/4, B/L.?PT PULSES (B):? 0/4, B/L.?CAPILLARY FILL TIME:? delayed, all digits, B/L.?TROPHIC CONDITION-TEXTURE/ELASTICITY/TURGOR/HAIR GROWTH (B):? decreased, fragile, thin, shiny, with sparse to absent hair growth, B/L.?TEMPERTURE GRADIENT (C):? decreased, cool to cool, proximal to distal, B/L.?PIGMENTATION:?mottled, B/L.?EDEMA (C):?absent, B/L.?CLAUDICATION (C):?denies, B/L.?REST PAIN:?denies, B/L.?PARESTHESIA (C):?absent, B/L.?BURNING (C):?absent, B/L.?Nails: ?NAILS are:?Elongated, overgrown, dystrophic, lytic, greater than 3mm thick, discolored and friable with crumbly malodorous subungual debris, with pain on palpation , TA, T1, T2, T3, T4, T5, T6, T7, T8, T9.?Dermatologic: ?SKIN FINDINGS:?Skin exam reveals Keratotic lesion(s) located at, Medial plantar, IPJ, TA, Plantar, T2, Medial plantar, IPJ, T5, SUB MTH (s), 1, B/L, SUB MTH (s), 3, Left, SUB MTH (s), 5, Right, Plantar Heel(s), B/L , Skin shows approximately 70-80 percent LESS, sign(s) of, dryness, scaling, in a stocking fashion, no fissure(s) present, B/L.? Assessment: * Assessment: 1.?Type 2 diabetes mellitus with diabetic peripheral angiopathy without gangrene - E11.51 (Primary)???Specify :Q8???Notes :Q7(A), Q8(2B), Q9(1B,2C)???2.?Tinea unguium - B35.1???3.?Pain in right toe(s) - M79.674???4.?Pain in left toe(s) - M79.675???5.?Xerosis of skin - L85.3???Specify :Acute problem, Stable, Response to treatment - Improvement??? Plan: * Treatment: 2.?Tinea unguium?Procedure: [id number] NAIL, 6 OR MORE * Procedures:?Debride Nail 6-10:?Nail debridement?Due to the clinical pathology outlined in the exam findings, performance of this nail treatment is medically necessary as its management by an unskilled/untrained nonprofessional would put this patients foot and overall health at risk. Therefore, debridement to affected nail(s), as described in exam (?TA, T1, T2, T3, T4, T5, T6, T7, T8, T9?), was performed exclusively by the physician of record to reduce/remove overall nail length, girth, thickness, subungual debris, and necrotic tissue, by manual and/or electrical means through the use of a nail nipper and/or dremel-type salvage grinder, to a more viable healthy nail plate or bed tissue 6- 10 nails in total. Silver nitrate was used for any petechial bleeding as necessary. Definitive antifungal treatment options, both pharmaceutical and surgical, have been reviewed and discussed with the patient. The patient solely prefers the use of intermittent/as needed professional debridement services for their nail condition and understands the need for additional periodic treatments to maintain effectiveness in symptomatic relief - 36183.?Keratoma Treatment:?Parring or Cutting of Benign Hyperkeratotic Lesion(s)?(-57) More than 4 Lesions - Due to the at risk nature of the patients medical condition as documented in the exam findings, performance of this keratoderma treatment is medically necessary as its management by an unskilled/untrained nonprofessional would put this patients foot and overall health at risk. Therefore, the benign hyperkeratotic lesions, ( 9 ) in total, locations as stated and described in the exam (?Medial plantar,?IPJ,?TA,?Plantar,?T2,?Medial plantar,?IPJ,?T5,?SUB MTH (s),?1,?B/L,?SUB MTH (s),?3,?Left,?SUB MTH (s),?5,?Right,?Plantar Heel(s),?B/L?), were pared, and/or cut utilizing a sterile 15 blade, tissue nippers, and/or power dremel instrumentation by the physician of record - 95279, Q8.? * Procedure Codes:?09613 DEBRI DE NAIL, 6 OR MORE, Modifiers: XS 11308 TRIM SKIN LESIONS, OVER 4, Modifiers: XS , Q8 * Preventive Medicine:? ??Counseling:?Discussion:?-12: Office or other outpatient visit for the evaluation and management of an established patient, which required a medically appropriate history and/or examination and STRAIGHTFORWARD level of MEDICAL DECISION MAKING, 1 SELF-LIMITED OR MINOR PROBLEM, MINIMAL- NO AMOUNT/COMPLEXITY OF DATA TO BE REVIEWED/ANALYZED, AND MINIMAL RISK OF COMPLICATION/MORBIDITY. The visit on the day of the encounter encompassed interpreting the data and educating the patient as to the nature of their condition, treatment options available according to their individual PMH, meds, allergies, and overall health/living conditions, as well as any potential risks or complications that may occur from a failure to adhere to, and participate in, the recommended course of therapy. The discussion included a complete verbal, and/or written explanation of the examination results, any x-rays taken, the proposed diagnosis, and outline of the treatment plan. A schedule for future care needs was also explained. The patient verbalized an understanding of the instructions at this time and agreed to be an active participant in their treatment. If the patient should think of any questions or concerns after the visit, I have encouraged the patient to call the office.?Xerosis:?Given recent successful results to treatment, The patient is to cont the rx cream as directed.? ??Screening/Special Tests:?Fall Risk?Screening:?No falls in the past year ?FALLS: Screening for Future Fall Risk?Have you had any falls with injury in the past year??No * Follow Up:?prn * Images: * Sign off status: Completed true * Provider:?Rolando Stevenson DPM Date:?2024 Generated for Roxanna guzman/Nadine/Domingo on:?07/26/2024 09:13 AM EDT History and Physical Notes * HPI (History of Present Illness) Category Sub-Category Detail Notes Category Not es Skin problems Treatments: Medication ( AM Lactin ), states adherence to recommended treatment application At Risk footcare Pt States Last PCP Visit: Date: 05/03/2024 [facility] Patient accompanied by, , JAIRO, who is physically present in exam room at time of visit Examination Category Sub-Category Detail Notes Category Not es Dermatologic SKIN FINDINGS: Skin exam reveal s Keratotic lesion(s) located at, Medial plantar, IPJ, TA, Plantar, T2, Medial plantar, IPJ, T5, SUB MTH (s), 1, B/L, SUB MTH (s), 3, Left, SUB MTH (s), 5, Right, Plantar Heel(s), B/L , Skin shows approximately 70-80 percent LESS, sign(s) of, dryness, scaling, in a stocking fashion, no fissure(s) present, B/L Ophthalmology Referral DIABETES EYE EXAM Procedu re Performed:: Yes ?Date of Exam Performed: 01/14/2024 Diabetic Retinopathy Screening:: Yes Retinal Screening Performed:: Yes Findings of Diabetic Eye Exam:: no retin opathy Vascular DP PULSES (B): 0/4, B/L PT PULSES (B): 0/4, B/L CAPILLARY FILL TIME: delayed, all digits , B/L TEMPERTURE GRADIENT (C): decreased, cool to cool, proximal to distal, B/L TROPHIC CONDITION-TEXTURE/ELASTICITY/TURGOR/HAIR GROWTH (B): decreased, fragile, thin, shiny, with sp arse to absent hair growth, B/L EDEMA (C): absent, B/L CLAUDICATION (C): denies, B/L REST PAIN: denies, B/L PIGMENTATION: mottled, B/L PARESTHESIA (C): absent, B/L BURNING (C): absent, B/L Nails NAILS are: Elongated, overg rown, dystrophic, lytic, greater than 3mm thick, discolored and friable with crumbly malodorous subungual debris, with pain on palpation , TA, T1, T2, T3, T4, T5, T6, T7, T8, T9
--- OUTSIDE RECORDS SUMMARY | 2024-07-26 09:13 | XMS_ITS | Clinical Summary ---
Author Organization [facility] Facility Address [address] [address] Care Team Providers Care Computing Systems Mechanic Name Role Phone Petty Riley MD Primary Care Provider [phone] Allergies Active Allergy Reactions Criticality Noted Date Comments Penicillin G 06/28/2022 Medications apixaban (ELIQUIS) 5 MG tablet Take 5 mg by mouth in the morning and 5 mg in the evening. Active insulin aspart (NovoLOG) 100 UNIT/ML patient supplied pump Inject 100 Units under the skin continuously Active acetaminophen (TYLENOL) 325 MG tablet Take by mouth every 6 (six) hours if needed for mild pain Active aspirin (ST UNIQUE) 81 MG EC tablet Take 81 mg by mouth 1 (one) time each day Active atorvastatin (LIPITOR) 40 MG tablet Take 40 mg by mouth 1 (one) time each day Active cyanocobalamin (VITAMIN B-12) 1000 MCG tablet Take 100 mcg by mouth 1 (one) time each day Active finasteride (PROSCAR) 5 MG tablet Take 5 mg by mouth 1 (one) time each day Do not crush, chew, or split. Active insulin detemir (LEVEMIR) 100 UNIT/ML injection Inject under the skin every night Active Active Problems Problem Noted Date Diagnosed Date Essential (primary) hypertension 06/28/2022 Acute nontraumatic kidney injury 06/28/2022 Chronic kidney disease, stage 2 (mild) 3 Hypertensive chronic kidney disease 06/28/2022 Resolved Problems Problem Noted Date Diagnosed Date Resolved Date Type 2 diabetes mellitus with hyperglycemia 06/28/2022 06/28/2022 Family History Medical History Relation Comments Heart failure Brother Diabetes Mother Heart failure Sister Relation Status Comments Brother Mother Sister Social History Tobacco Use Types Packs/Day Years Used Date Smoking Tobacco: Never Smokeless Tobacco: Never Tobacco Cessation:Counseling Given: No Alcohol Use Standard Drinks/Week Comments Never 0 (1 standard drink = 0.6 oz pur e alcohol) Sex and Gender Information Value Date Recorded Sex Assigned at Not on file Legal Sex Male 11:46 AM EST Gender Identity Not on file Sexual Orientation Not on file Last Filed Vital Signs Vital Sign Reading Time Taken Comments Blood Pressure 110/68 06/28/2022 3:00 PM EDT Pulse 63 06/28/2022 3:00 PM EDT Temperature - - Respiratory Rate - - Oxygen Saturation - - Inhaled Oxygen Concentration - - Weight 69.4 kg (153 lb) 06/28/2022 3:00 PM EDT Height - - Body Mass Index - - Plan of Treatment Health Maintenance Due Date Last Done Comments Pneumococcal Vaccine: 50+ Ye ars (1 of 2 - PCV) 07/14/1964 Influenza Vaccine (Season Ended) 2024 Hepatitis B Vaccine Aged Out No longe r eligible based on patient's age to complete this topic Insurance Aetna Medicare Aetna Medicare Care Teams Computing Systems Mechanic Relationship Specialty Start Date End Date Petty Riley MD [facility] [address] [place] PCP - General Internal Medicine 06/28/22
--- OUTSIDE RECORDS SUMMARY | 2024-07-26 09:13 | XMS_ITS ---
[facility] Address [address] [facility] [place] [address] Care Team Providers Care Kindergarten Instructional Assistant Name Role Phone Petty Riley Primary Care Provider Rolando Carrion Unavailable [phone] Allergies Allergen (clinical drug ingredient) Drug/Non Drug Allergy documented on EMR Reaction Allergy Type Onset Date Status Penicillin Unknown Drug Allergy Active REASON FOR VISIT At Risk Footcare, Painful Nail(s) aggravated by shoes and causing difficulty standing/walking, Skinproblem(s) Medications Medication SIG (Take, Route, Frequency, Duration) Notes Start Date End Date Status Plavix Not-Taking Lantus Not-Taking Ammonium Lactate 12 % 1 application Externally to affected areas of dry skin to feet except for between the toes Twice a day for 30 days Active Simvastatin 40 MG as directed Orally O nce a day Not-Taking Vitamin D Not-Taking Lisinopril 40 MG 1 tablet Orally Once a day Not-Taking Doxycycline Hyclate 100 MG 1 capsule Orally Once a day for 10 day(s) Not-Taking NovoLOG Active Levaquin 500 MG 1 tablet Orally Once a day for 30 days 08/27/2020 Active baby asprin Active Eliquis Active Atorvastatin Calcium Active Finasteride Active Vitamin B-12 Active Levemir Active Lisinopril 2.5 MG 1 tablet Orally Once a day for 30 day(s) Active Social History Tobacco Use: Social History Observation [...] Type 2 diabetes mellitus with peripheral angiopathy (324083392) Type 2 diabetes mellitus with diabetic peripheral angiopathy without gangrene (E11.51) Active confirmed Q7(A), Q8(2B), Q9(1B,2C) Vital Signs Height 5 ft 7in in 05/04/2024 Weight 157 lbs 05/04/2024 BMI 24.59 kg/m2 05/04/2024 Blood pressure systolic 120 mm Hg 05/04/19 25 Blood pressure diastolic 80 mm Hg 025 Procedures Procedure Date Ordered Date Performed Result Body Sit e 75965-YHDRSPY NAIL, 6 OR MORE 05/04/2024 N/A 65384-YKTT SKIN LESIONS, OVER 4 05/04/2024 N/A Encounters Encounter Location Date Provider Diagnosis [facility] [address] [place] [address] 05/04/2024 Rolando Stevenson Type 2 diabetes mellitus with diabetic peripheral angiopathy without gangrene E11.51 ; Tinea unguium B35.1 ; Pain in right toe(s) M79.674 ; Pain in left toe(s) M79.675 and Xerosis of skin L85.3 Assessments Encounter Date Diagnosis (ICD Code) Assessment Notes Treatment Notes Treatment Clinical Notes Section Notes 05/04/2024 Type 2 diabetes mellitus with diabetic peripheral angiopathy without gangrene (ICD-10 - E11.51) Q7(A), Q8(2B), Q9(1B,2C) 05/04/2024 Tinea unguium (ICD-10 - B35.1) 05/04/2024 Pain in right toe(s) (ICD-10 - M79.674) 05/04/2024 Pain in left toe(s) (ICD-10 - M79.675) 05/04/2024 Xerosis of skin (ICD-10 - L85.3) Plan Of Treatment Medication Medication Name Sig Start Date Stop Date Notes Ammonium Lactate 12 % 1 application Exte rnally to affected areas of dry skin to feet except for between the toes Twice a day for 30 days Pending Test Test Name Order Date 63799-BJFTMCL NAIL, 6 OR MORE 05/04/2024 65125-CBWM SKIN LESIONS, OVER 4 05/04/19 Next Appt Details Follow Up: prn, Reason: Provider Name:Rolando Stevenson , 11/02/2024 12:15:00 PM, [address] [place] [address], [phone], Procedure Notes * Category Sub-Category Detail Notes [...] use of a nail nipper and/or dremel-type edge grinder, to a more viable healthy nail [...] to maintain effectiveness in symptomatic relief - 40649 Keratoma Treatment Parring or Cutting o f [...] instrumentation by the physician of record - 58959, Q8 Progress Notes * Arsenio HUSTON GDOB:1945 (78 yo M)Acc No.[id number]:05/04/2024 Progress Note Patient:Arsenio BAIRES Provider:?Rolando Stevenson DPM :1945???Age:78 Y???Sex:Male Rosalino e:05/04/2024 Address:[address] [facility] [place], [place], [id number] Pcp:Petty Riley Subjective: * Chief Complaints: * ???At Risk FootcarePainful N ail(s) aggravated by shoes and causing difficulty standing/walkingSkin problem(s) * HPI: ???At Risk footcare:?Pt States Last PCP Visit:?Date?03/01/2024 ???Skin problems:?Nature:?dryness , scaling.?Location:?B/L .?Duration:?several days.?Course:?worse.? * ROS:?General/Constitutional:?Nausea?denies.?Vomiting?denies.?Hunger Thirst?denies.?Loss appetite?denies.?Chills?denies.?Fatigue?denies.?Fever?denies.?Night Sweats?denies.?Unexplained weight loss?denies.?Unexplained [...] 1 tablet Orally Once a day NovoLOG Taking Lisinopril 2.5 MG Tablet 1 tablet Orally Once a day Taking Eliquis Taking Levemir Taking Vitamin B-12 Taking Finasteride Taking Atorvastatin Calcium Taking baby asprin Taking Levaquin 500 MG Tablet 1 tablet Orally Once a day Taking NovoLOG Not-Taking/PRNDoxycycline Hyclate 100 MG Capsule 1 capsule Orally Once a day Lisinopril 40 MG Tablet 1 tablet Orally Once a day Lantus Plavix Vitamin D Simvastatin 40 MG Tablet as directed Orally Once a day Medication List reviewed and reconciled with the patientNot-Taking/PRN Doxycycline Hyclate 100 MG Capsule 1 capsule Orally Once a day Not-Taking/PRN Lisinopril 40 MG Tablet 1 tablet Orally Once a day Not-Taking/PRN Lantus Not-Taking/PRN Plavix Not-Taking/PRN Vitamin D Not-Taking/PRN Simvastatin 40 MG Tablet as directed Orally Once a day Medication List reviewed and reconciled with the patient * Allergies:?Penicillinyes[All ergies Verified] Objective: * Vitals:?Ht: 5 ft 7in, Wt: 15 7, BMI: 24.59, Shoe size: 8.5, BP: 120/80 mm Hg, BS: 152, Wt-k.21 kg. * ???Past Orders: ???Lab:HEMOGLOBIN A1C (GLYCO HEMOGLOBIN) (Order Date - 02/12/2024) (Collection Date & Time - 02/12/2024 11:52 AM) ? Value Reference Range ?HEMOGLOBIN A1C % (HH) 7.5 * Examination: ???Ophthalmology Referral: ?DIABETES EYE EXAM?Procedure Performed:?Yes ?Date of Exam Performed?09/12/2023 ?Diabetic Retinopathy Screening:?Yes ?Retinal Screening Performed:?Yes ?Findings [...] Right, Plantar Heel(s), B/L , Skin shows sign(s) of, dryness, scaling, in a stocking fashion, no fissure(s) present, B/L.? Assessment: * Assessment: 1.?Type 2 diabetes mellitus with diabetic peripheral angiopathy without gangrene - E11.51 (Primary)???Notes :Q7(A), Q8(2B), Q9(1B,2C)???2.?Tinea unguium - B35.1???3.?Pain in right toe(s) - M79.674???4.?Pain in left toe(s) - M79.675???5.?Xerosis of skin - L85.3???Specify :Acute problem, Uncomplicated (3),Rx Management (4)??? Plan: * Treatment: 2.?Tinea unguium?Procedure: 77204-MREYYVQ NAIL, 6 OR MORE 3.?Xerosis of skin? Start Ammonium Lactate Cream, 12 %, 1 application, Externally to affected areas of dry skin to feet except for between the toes, Twice a day, 30 days, 280, Refills 3.?? * Procedures:?Debride Nail 6-10:?Nail debridement?Due to the [...] use of a nail nipper and/or dremel-type edge grinder, to a more viable healthy nail [...] to maintain effectiveness in symptomatic relief - 17746.?Keratoma Treatment:?Parring or Cutting of Benign Hyperkeratotic Lesion(s)?(-57) [...] instrumentation by the physician of record - 48991, Q8.? * Procedure Codes:?02582 DEBRI DE NAIL, 6 OR MORE, Modifiers: XS 83530 TRIM SKIN LESIONS, OVER 4, Modifiers: XS , Q8 * Preventive Medicine:? ??Counseling:?Discussion:?-13: Office or other outpatient visit for the evaluation and management of an established patient, which required a medically appropriate history and/or examination and LOW level of DECISION MAKING for: 1 STABLE ACUTE UNCOMPLICATED PROBLEM, 2 OR MORE MINOR PROBLEMS, OR 1 STABLE CHRONIC PROBLEM, THAT POSE(S) A LOW RISK FOR MORBIDITY/MORTALITY. The visit on the day of the [...] have encouraged the patient to call the office.?Xerosis:?The patient was counseled on the diagnosis, potential etiologies, and treatment options for their skin condition. We discussed the risks and benefits of each option from performing no treatment, to utilizing OTC topical skin creams/ointments, to utilizing prescription topical creams/ointments, to utilizing customized compounded topical medications and use of nocturnal occlusion with any/all previously detailed therapies. We discussed the advantages and disadvantages of each possible treatment and importance for adherence to all the recommended therapies for optimum success and avoid potential complications such as open sore/infection/possible hospitalization. We discussed the potential effectiveness of each topical preparation as well as each ones possible side effects and/or patient medication interactions. Patient questions re: use, dosage, successful outcomes, and application consistency were reviewed and the patient verbalized that all answers were clearly understood. The patient has decided to apply Rx skin creams to their feet save the interspaces while paying special attention to the heels. Such was sent to their pharmacy at the time of visit.? ??Screening/Special Tests:?Fall Risk?Screening:?No falls in the past year ?FALLS: Screening for Future Fall Risk?Have you had any falls with injury in the past year??No * Follow Up:?prn * Images: * Sign off status: Completed true * Provider:?Rolando Stevenson DPM Date:?2024 Generated for Roxanna guzman/Nadine/Domingo on:?07/26/2024 09:12 AM EDT History and Physical Notes * HPI (History of Present Illness) Category Sub-Category Detail Notes Category Not es Skin problems Nature: dryness , scaling Location: B/L Duration: several days Course: worse At Risk footcare Pt States Last PCP Visit: Date: Examination Category Sub-Category Detail Notes Category Not es Dermatologic SKIN FINDINGS: Skin exam reveal s Keratotic lesion(s) located at, Medial plantar, IPJ, TA, Plantar, T2, Medial plantar, IPJ, T5, SUB MTH (s), 1, B/L, SUB MTH (s), 3, Left, SUB MTH (s), 5, Right, Plantar Heel(s), B/L , Skin shows sign(s) of, dryness, scaling, in a stocking fashion, no fissure(s) present, B/L Ophthalmology Referral DIABETES EYE EXAM Procedu re Performed:: Yes ?Date of Exam Performed: 09/12/2023 Diabetic Retinopathy Screening:: Yes Retinal Screening Performed:: [...]
--- OUTSIDE RECORDS SUMMARY | 2024-07-26 09:13 | XMS_ITS ---
Author Organization [facility] Address [address] [place] [address] Care Team Providers Care Floor Cleaner Name Role Phone Petty Riley Primary Care Provider Rolando Carrion Unavailable [phone] Encounters Encounter Location Date Provider Diagnosis [address] [address] 02/24/2024 Rolando Stevenson Plan Of Treatment Next Appt Details Provider Name:Rolando Stevenson , 11/02/2024 12:15:00 PM, [address] [place] [address], [phone], Progress Notes * Arsenio HUSTON GDOB:1945 (79 yo M)Acc No.[id number]:02/24/2024 Progress Note Patient:?Arsenio HUSTON Provider:?Rolando Stevenson DPM :1945???Age:78 Y???Sex:Male Rosalino e:02/24/2024 Address[address] [facility] [id number] Pcp:Petty Riley Subjective: * Chief Complaints: * ??? * Medical History:? Objective: * Vitals:? Assessment: Plan: * Treatment: * Images: * The named appointment provid er may or may not be the originator of this progress note, and it is not deemed complete until electronically signed by the appointment provider. Sign off status: Pending * Provider:?Rolando Stevenson DPM Date:?2023 Generated for Roxanna guzman/Nadine/Myahitting on:?07/26/2024 09:12 AM EDT
[2024-07-26 09:27] LABS: Basophils Percent Auto 0.7 % (0-2); Eosinophils Absolute Auto 0.2 X10*3/uL (0.0-0.4); Eosinophils Percent Auto 3.6 % (0-4); Hematocrit 35.8 % (42.0-52.0); Hemoglobin 11.8 g/dl (14.0-18.0); Imm Gran Abs Auto 0.01 X10*3/uL (0.00-0.03); Imm Gran Pct Auto 0.2 % (0.0-0.4); Immature Retic Fraction 4.6 % (2.3-13.4); Lymphocytes Absolute Auto 2.1 X10*3/uL (1.2-4.9); Lymphocytes Percent Auto 34.9 % (20-40); Mean Corpuscular Hemoglobin 28.2 pg (27.0-33.0); Mean Corpuscular Volume 85.6 fL (80.0-98.0); Mean Platelet Volume 11.3 fL (9.4-12.4); Monocytes Absolute Auto 0.5 X10*3/uL (0.1-1.2); Monocytes Percent Auto 8.7 % (2-11); Neutrophils Absolute Auto 3.2 x10*3/uL (2.0-8.3); Neutrophils Percent Auto 51.9 % (45-73); Platelet Count 103 X10*3/uL (160-400); Red Blood Count 4.18 X10*6/uL (4.60-5.80); Red Cell Distribution Width 13.4 % (11.0-16.0); Reticulocyte Percent 1.2 % (0.5-1.8); Reticulocytes Absolute 0.049 X10*6/uL (0.026-0.095); White Blood Count 6.1 X10*3/uL (4.8-10.8)
[2024-07-26 09:31] LABS: Estimated Average Glucose 171 mg/dL; Hemoglobin A1C 188.6615 umol/L; Hemoglobin A1c % 7.6 % (<6.0); Total Hemoglobin (HGBA1C) 3169.3497 umol/L
[2024-07-26 10:08] LABS: Alanine Aminotransferase 16 U/L (0-40); Alkaline Phosphatase 120 U/L (39-117); Anion Gap 11 (12-20); Aspartate Amino Transferase 27 U/L (5-37); Bilirubin Total 0.5 mg/dL (0.0-1.0); Blood Urea Nitrogen 24 mg/dL (9-16); Calcium 9.2 mg/dL (8.4-10.2); Carbon Dioxide 22 mmol/L (22-29); Chloride 112 mmol/L (96-108); Cholesterol 116 mg/dL (<200); Estimated Glomerular Filt Rate > 60; Glucose Random 124 mg/dL (60-115); HDL Cholesterol 25 mg/dL (>40); Iron 85 mcg/dL (45-160); LDL Cholesterol Calculated 69 mg/dL (<100); Percent Iron Saturation 39 % (15-50); Potassium 4.4 mmol/L (3.3-5.1); Sodium 141 mmol/L (135-145); Total Iron Binding Capacity 217 mcg/dL (228-428); Total Protein 6.8 g/dL (6.5-8.0); Triglycerides 112 mg/dL (<150); Unsaturated Iron Binding 132 ug/dL
[2024-07-26 10:15] LABS: Ferritin 302 ng/mL (20-250); Free T4 (Free Thyroxine) 0.92 ng/dL (0.71-1.85); Thyroid Stimulating Hormone 3.12 uIU/mL (0.32-4.0)
[2024-07-26 10:34] LABS: Folate 10.3 ng/mL (> or = 4.0); Vitamin B12 879 pg/mL (200-900)
[2024-07-26 11:14] LABS: Creatinine Urine 108.28 mg/dL; Microalbum/Creatinine Ratio Ur 16.6 ug/mg cr (<30)
== END 2024-07-26 08:49 | disposition home or self-care (01) ==
LOC: HO.LAB 08:48
PROVIDERS: PCP Internal Medicine; Visit Provider Internal Medicine
DX: E11.65 Type 2 diabetes mellitus with hyperglycemia (principal); Z79.4 Long term (current) use of insulin; E78.00 Pure hypercholesterolemia, unspecified
CPT/HCPCS: 36415; 80053; 80061; 82043; 82570; 82607; 82728; 82746; 83036; 83540; 84439; 84443; 85025; 85045

== ENCOUNTER 2024-08-02 15:40 | Outpatient (AMB) | payer MEDICARE, MEDICAID, SELFPAY ==
[2022-11-01 08:04] VITALS: BP 122/60; BP 128/64; BMI 24.3
--- OUTSIDE RECORDS SUMMARY | 2024-08-02 15:43 | XMS_ITS | Clinical Summary ---
Author Organization [facility] Address [address] [address] Care Team Providers Care E Business Project Manager Name Role Phone Petty Riley MD Primary Care Provider [phone] Allergies Active Allergy Reactions Criticality Noted Date [...] Insurance Aetna Medicare Aetna Medicare Care Teams E Business Project Manager Relationship Specialty Start Date End Date Petty Riley MD [facility] [place] [address] [place] PCP - General Internal Medicine 06/28/22
[2024-08-02 15:48] VITALS: BP 130/78; PULSE 69; O2SAT 99; BMI 25.2
--- NOTE | 2024-08-02 15:48 | MHC.PC.OV ---
Vital Signs 08/02/24 15:48 Height 5 ft 7 in Weight 161 lb 2 oz BMI 25.2 BP 130/78 Blood Pressure Location Lt brachial Position Sitting Pulse 69 Pulse Source Pulse Oximeter Pulse Oximetry (%) 99 Oxygen Delivery Method Room Air Intake Visit Reasons: CAD, atrial fibrillation Turning Lathe Tender Required: No Accompanied by: Self / Same As Patient Allergies penicillin V Allergy (Unknown, Verified 08/02/24 15:48) Rash Penicillins [PENICILLINS] Allergy (Unknown, Verified 08/02/24 15:48) RASH penicillin Allergy (Unknown, Uncoded 08/02/24 15:48) rash Medication List - Last Reconciled 08/02/24 by Petty Riley MD apixaban (Eliquis) 5 mg PO BID atorvastatin 40 mg PO DAILY 100 days blood sugar diagnostic 1 strip miscellaneous QID 100 days cyanocobalamin (vitamin B-12) 1,000 mcg PO DAILY 100 days [DIABETIC SHOES As directed] finasteride 5 mg PO DAILY 100 days insulin glargine (Basaglar KwikPen U-100 Insulin) 24 units (0.24 mL) subcut QAM lisinopril 2.5 mg PO DAILY Novolog FlexPen U-100 Insulin (insulin aspart U-100) 10 units (0.1 mL) subcut TID 100 days NS pen needle, diabetic (BD Ultra-Fine Licha Pen Needle) As directed 6 times per day pioglitazone 15 mg PO DAILY Tobacco use date assessed: 08/02/24 Fall risk assessment: No Falls in past year Last assessed Fall Risk: 08/02/24 Dental Screening Dental Screen Date: 08/02/24 Did you have a dental visit in the last 12 months?: No Did you have a dental problem in the last 6 months where you did not have access to dental care?: No Was dental information given to patient?: No [facility] Medical History (Updated 09/28/23 @ 10:34 by Collins Levine MD) Screening for hypothyroidism Atherosclerotic cardiovascular disease BPH (benign prostatic hyperplasia) Lumbar degenerative disc disease Finger fracture, left Hypercholesterolemia Hypertension Type 2 diabetes mellitus with hyperglycemia Surgical History History of facial surgery S/P triple vessel bypass History of toe surgery History of cataract surgery Family History Family/Other No problems noted. Mother CHF (congestive heart failure) Social History Housing: House Alcohol intake: never Patient Tobacco Use Status: Never used Tobacco e-Cigarette/Vaping Use: Never Used Second Hand Smoke Exposure: No service: No Current occupational status: retired Cognitive needs: No Hearing needs: No Vision needs: Yes Questionnaire PHQ-9 Over the last 2 weeks, how often have you been bothered by any of the following problems? 1. Little interest or pleasure in doing things: not at all 2. Feeling down, depressed, or hopeless: not at all 3. Trouble falling or staying asleep, or sleeping too much: not at all 4. Feeling tired or having little energy: not at all 5. Poor appetite or overeating: not at all 6. Feeling bad about yourself - or that you are a failure or have let yourself or your family down: not at all 7. Trouble concentrating on things, such as reading the newspaper or watching television: not at all 8. Moving or speaking so slowly that other people could have noticed. Or the opposite - being so fidgety or restless that you have been moving around a lot more than usual: not at all 9. Thoughts that you would be better off or of hurting yourself in some way: not at all Total score: 0 Source: Developed by Drs. Rocael Crespo, Elizabeth Cordero, Norm Cherry and colleagues, with an educational barbara from [employer]. Thrive Questionnaire Date Thrive assessed: 08/02/24 I am a: Patient What is your living situation today?: I have a steady place to live Within the past 12 months, did the food you bought not last and you didn't have the money to get more?: I choose not to answer this question Within the past 12 months, did you worry whether your food would run out before you got money to buy more?: Never true Do you have trouble paying for medicines?: No Do you have trouble getting transportation to medical appointments?: No Do you have trouble paying your heating and electricity bill?: No Do you have trouble taking care of your child, family member or friend?: No Do you have trouble with day-to-day activities such as bathing, preparing meals, shopping, managing finances, etc.?: No Are you currently unemployed and looking for a job?: I choose not to answer this question Are you interested in more education?: No Please select the resources that you would like help with: None Currently or been in a relationship where the following occur: No concerns reported THRIVE Score: 0 AUDIT C Alcohol Use Questionnaire (AUDIT-C) 1. How often do you have a drink containing alcohol?: Never 3. How often do you have six or more drinks on one occasion?: Never Total Score: 0 KENDELL-7 AMB Questionnaire KENDELL-7 Date KENDELL - 7 assessed: 08/02/24 Feeling nervous, anxious, or on edge: 0 = Not at all Not being able to stop or control worryin = Not at all Worrying too much about different things: 0 = Not at all Trouble relaxin = Not at all Being so restless that it is hard to sit still: 0 = Not at all Becoming easily annoyed or irritable: 0 = Not at all Feeling afraid as if something awful might happen: 0 = Not at all Total KENDELL-7 score (0-4 normal; 5-9 mild; 10-14 moderate; 15-21 severe): 0 Source: Developed by Drs. Rocael Crespo, Elizabeth Cordero, Norm Cherry and colleagues, with an educational barbara from [employer]. Physical exam (Primary Care) Vital Signs: Last Vital Signs Pulse 69 08/02/24 15:48 BP 130/78 08/02/24 15:48 Pulse Ox 99 08/02/24 15:48 Oxygen Delivery Method Room Air 08/02/24 15:48 BMI result Body Mass Index 25.2 Tobacco/Smoking Status: Tobacco use Status Tobacco use date assessed 08/02/24 08/02/24 15:53 Patient Tobacco Use Status Never used Tobacco 08/02/24 15:53 e-Cigarette/Vaping Use Never Used 08/02/24 15:53 PHQ-9: PHQ-9 Score PHQ-9: Total score 0 08/02/24 15:53 Thrive Assessment: Date of Thrive Assessment Date Thrive assessed 08/02/24 08/02/24 15:53 Currently or been in a relationship where the following occur: No concerns reported Const General: alert; No acute distress Eyes Conjunctivae: conjunctivae normal Resp Auscultation: clear to auscultation bilaterally Cardio Rate: regular rate Rhythm: regular rhythm GI Inspection: Yes normal to inspection Extrem General: Yes normal to inspection and No edema Coding Level of Care Code Est Pt Level 4 (70275) Complex EM visit Add On G2211 Diagnoses Type 2 diabetes mellitus with hyperglycemia, with long-term current use of insulin E11.65; Z79.4 Diabetes mellitus 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 Camilo in [place] Code(s): E11.65 - Type 2 diabetes mellitus with hyperglycemia Category: Medical Qualifiers: Diabetes mellitus senior living insulin use: with termite control representative use Qualified Code(s): E11.65 - Type 2 diabetes mellitus with hyperglycemia; Z79.4 - exterminator (current) use of insulin Plan: Decrease the amount of carbohydrate intake, pasta, bread, rice and potatoes are all sugar and that is aside from all the sweet stuff, remember that fruits are good but they are Sweet also. Hemoglobin A1c goal of less than 7.0. Patient is presently on Basaglar 24 units once a day NovoLog sliding scale (2) Hypertension: Code(s): I10 - Essential (primary) hypertension Category: Medical Qualifiers: Hypertension type: essential hypertension Qualified Code(s): I10 - Essential (primary) hypertension Plan: Continue with blood pressure medication. Decrease salt intake and exercise on lisinopril 2.5 mg once a day (3) Hypercholesterolemia: Code(s): E78.00 - Pure hypercholesterolemia, unspecified Category: Medical Plan: Avoid fried foods, chicken skin, eggs, butter margarine, pastries and meat. Be it pork or beef they have a lot of cholesterol on atorvastatin 40 mg once a day (4) Atherosclerotic cardiovascular disease: Code(s): I25.10 - Atherosclerotic heart disease of [place] coronary artery without angina pectoris Category: Medical Plan: Control the cholesterol, weight, blood pressure, diabetes continuing with anticoagulation with Eliquis (5) PAF (paroxysmal atrial fibrillation): Code(s): I48.0 - Paroxysmal atrial fibrillation Category: Medical Plan: Continuing anticoagulation (6) Anemia: Code(s): D64.9 - Anemia, unspecified Category: Medical Plan: Continue to monitor Plan History of Present Illness The patient is an 79-year-old male presenting with a need for follow-up management of his diabetes mellitus. His diabetes management goal is to have a HbA1c of less than 7.0%, and his recent level was 7.6%, relevant to his chronic management regimen that includes Basaglar once daily and Novolog as per sliding scale. The patient previously used Metformin without achieving target glucose control, driving consideration for alternative or additional oral medications. Anemia is recurrent, with hemoglobin levels at 11.8 g/dL and thrombocyte count low but not presenting hazards requiring intervention. He successfully manages hypertension on Lisinopril, hypercholesterolemia controlled at LDL of 69 mg/dL with Atorvastatin, and maintains anticoagulation therapy for atrial fibrillation. Scheduled follow-ups include cardiology and echocardiography. The patient denies significant medication issues aside from the conversion of insurance coverage for diabetes treatments, and reports adequate eye care follow-up. Health Maintenance - Diabetes Mellitus Management: HbA1c goal is less than 7.0%. - Lipid Management: LDL cholesterol goal is lesser than 70 mg/dL. - Hypertension Control: ongoing management with Lisinopril. - Cardiovascular Risk Management: anticoagulant therapy with Eliquis. - Previous eye exam 6?7 months ago. - Encouraged consideration of the herpes zoster vaccine, covered by insurance. - Previous vaccination in record for tetanus and pneumonia. - Regular podiatry evaluations. - Pending cardiology and echocardiogram review. Social History - Patient has a supportive partner needing surgical attention for knee issues. - Reports weight gain but no specific exercise or nutritional intake details discussed. - No current employment or detailed family status implications discussed during consultation. Review of Systems - Cardiovascular: Denies palpitations. - Neurological: Denies complications. - General: Reports weight gain, bowel movements and urination normal. - Musculoskeletal: Denies functional limitations. Physical Exam - Cardiovascular- Heart sounds regular; current signs indicating stabilization with anticoagulation management. Results - Labs: Hemoglobin A1c of 7.6%, mild anemia (hemoglobin 11.8 g/dL), thrombocytopenia, creatinine 1.11 mg/dL, LDL 69 mg/dL. - Blood Sugar: 124 mg/dL as of the last test. Plan 1. 6%. I discussed the potential benefits and considerations of considering either Pioglitazone or reviewing the possibility of restarting Metformin, all contingent on insurance coverage. Current medical therapy for hypertension is with Lisinopril, and the lipid profile is well managed with Atorvastatin, meeting cardiovascular targets. Mild anemia and thrombocytopenia do not necessitate intervention and are considered stable. Scheduled follow-up visits with cardiology and echo assessments are crucial for continued oversight of cardiac conditions. He is encouraged to pursue a zoster vaccine at local pharmacies to extend his prophylaxis against shingles. Regular medication couriers are adjusted to avoid past confusion while addressing immediate prescription requirements with detailed correspondence to his preferred pharmacy.: Patient was informed and verbally consented to the use of an ambient scribe for clinic note documentation during this visit. Discussion Notes Today, I reviewed with the patient his difficulties in achieving glycemic targets, specifying the need for adjustments or additions to his diabetes regimen. We deliberated on Pioglitazone introduction or Metformin reconsideration if suitable within his insurance plan, aimed at improving A1c to below 7%. I underscored the significance of routine cardiology consultations and timely echocardiographic assessments. Current therapies like Lisinopril and Atorvastatin are meeting therapeutic endpoints, with preventative measures still deemed necessary, including the possibility of a zoster vaccine, emphasizing the protection from potential viral recurrences. I ensured a clear understanding of medication refills and pharmacy adjustments, along with potential upcoming evaluations in cardiovascular health and vein function. Attached formal consent and comprehension were verified for all proposed interventions and aimed follow-ups within three months, including potential blood work results re-evaluation. Patient Instructions - Continue with your current dose of Lisinopril, Atorvastatin, and Eliquis. - Monitor blood sugar levels regularly and report any episodes of hypoglycemia or persistent high readings. - Consider discussing with your pharmacy about new medications for diabetes if insurance approves. - Schedule your follow-up cardiology appointment in September as planned. - Try to schedule the echocardiogram as directed before cardiology assessment. - Check with your pharmacy about shingles vaccine coverage. - Ensure medications refills, especially for Atorvastatin, are updated to avoid lapse. - Follow up on blood work and return for a general check-up in about 3 months. Medications: New pioglitazone 15 mg PO DAILY 30 tabs 4RF E11.65 - Type 2 diabetes mellitus with hyperglycemia, Z79.4 - exterminator (current) use of insulin Changed From atorvastatin 40 mg PO DAILY 100 days 100 tabs 0RF E78.00 - Pure hypercholesterolemia, unspecified To atorvastatin 40 mg PO DAILY 90 days 90 tabs 3RF E78.00 - Pure hypercholesterolemia, unspecified
== END 2024-08-02 16:15 | disposition home or self-care (01) ==
PROVIDERS: PCP Internal Medicine; Visit Provider Internal Medicine
DX: E11.65 Type 2 diabetes mellitus with hyperglycemia (principal); Z79.4 Long term (current) use of insulin; I48.0 Paroxysmal atrial fibrillation; I10 Essential (primary) hypertension; E78.00 Pure hypercholesterolemia, unspecified; I25.10 Atherosclerotic heart disease of native coronary artery without angina pectoris; D64.9 Anemia, unspecified

== ENCOUNTER → 2024-08-02 15:40 | Outpatient (BNVA) | payer MEDICARE, MEDICAID, SELFPAY ==
[2022-11-01 08:04] VITALS: BP 122/60; BP 128/64; BMI 24.3
== END ==
PROVIDERS: PCP Internal Medicine; Visit Provider Internal Medicine
DX: I25.10 Atherosclerotic heart disease of native coronary artery without angina pectoris (principal); E11.65 Type 2 diabetes mellitus with hyperglycemia; I48.91 Unspecified atrial fibrillation; I10 Essential (primary) hypertension; E78.00 Pure hypercholesterolemia, unspecified; I48.0 Paroxysmal atrial fibrillation; D64.9 Anemia, unspecified; Z79.4 Long term (current) use of insulin
CPT/HCPCS: 96127; 99212

== ENCOUNTER 2025-01-30 12:43 | Outpatient (AMB) | payer MEDICARE, MEDICAID, SELFPAY ==
[2022-11-01 08:04] VITALS: BP 122/60; BP 128/64; BMI 24.3
--- OUTSIDE RECORDS SUMMARY | 2023-08-04 07:00 | XMS_ITS ---
Author Organization [facility] Address [address] [place] [address] Care Team Providers Care Nursing Teacher Name Role Phone Petty Riley Primary Care Provider Rolando Carrion Unavailable [phone] Marcello Harris Unavailable [phone] REASON FOR VISIT Painful nail(s) aggrevated by shoes and causing difficulty standing/walking., Ingrown nail(s) Medications Medication SIG (Take, Route, Frequency, Duration) Notes Start Date End Date Status Extra Depth Diabetic Shoes with 3 Pair Custom heat-molded multi-density innersoles for 1 year Dx: Active Encounters Encounter Location Date Provider Diagnosis [facility] [address] [place] [address] 08/04/2023 Marcello Harris Skin disease L98.9 ; Type 1 diabetes mellitus with diabetic polyneuropathy E10.42 ; Other hammer toe(s) (acquired), left foot M20.42 ; Tinea unguium B35.1 ; Pain in right toe(s) M79.674 ; Pain in left toe(s) M79.675 ; Other hammer toe(s) (acquired), right foot M20.41 ; Non-pressure chronic ulcer of other part of left foot limited to breakdown of skin L97.521 and Ingrowing nail L60.0 Assessments Encounter Date Diagnosis (ICD Code) Assessment Notes Treatment Notes Treatment Clinical Notes Section Notes 08/04/2023 Skin disease (ICD-10 - L98.9) 08/04/2023 Type 1 diabetes mellitus with diabetic polyneuropathy (ICD-10 - E10.42) 08/04/2023 Other hammer toe(s) (acquired), left foot (ICD-10 - M20.42) 08/04/2023 Tinea unguium (ICD-10 - B35.1) 08/04/2023 Pain in right toe(s) (ICD-10 - M79.674) 08/04/2023 Pain in left toe(s) (ICD-10 - M79.675) 08/04/2023 Other hammer toe(s) (acquired), right foot (ICD-10 - M20.41) 08/04/2023 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 - L97.521) 08/04/2023 Ingrowing nail (ICD-10 - L60.0) Plan Of Treatment Medication Medication Name Sig Start Date Stop Date Notes Extra Depth Diabetic Shoes w ith 3 Pair Custom heat-molded multi-density innersoles for 1 year Dx: Next Appt Details Follow Up: 2 Months, Reason: Provider Name:Rolando Stevenson , 02/12/2025 11:15:00 AM, [address] [place] [address], [id number], Procedure Notes * Category Sub-Category Detail Notes Nail Avulsion Procedure A fine sterile e levator was used to loosen the eponychium, nail bed, nail plate and groove. A sterile nail splitter was then used to longitudinally section the nail. This section was removed. No underlying bone was identified. Procedure was performed under. Bacitracin and sterile dressings applied, local wound care instructions were dispensed. Patient was informed of both conservative and future surgical procedures to prevent recurrence Anesthesia was deferred - NEURO NANCY: patient has medically documented neuropathic condition affecting sensation Location Lateral nail border, T5 Debride skin< 25 sq cm Open wound Open woun d selective debridement of fibrin, devitilized epidermis and/or dermis, exudate, using sterile sharp dissection, without use of anesthesia, with/without topical applications, wound assessment and instructions for ongoing care, Wound Care, The patient was instructed on importance of proper wound care consisting of pressure reduction, maintainance of moist wound environment, and regular debridement of devitilized tissue , The patient is to cleanse the wound with warm soapy water/peroxide/saline or betadine BID based on product availability , The patient is to apply Antibiotic Oint. to the wound and cover with a DSD , The patient was instructed to change dressings according to orders or PRN saturation, leaks, The patient was instructed to monitor and report any signs or symptoms of infection or any untoward reactions (46442) Progress Notes * Arsenio HUSTON GDOB:1945 (79 yo M)Acc No.[id number]:08/04/2023 Progress Note Patient: Arsenio MARIE Provider: Kevin Dawson DPM :1945 A ge:78 Y S ex:Male Date:08/04/2023 Address:[address] [place] [address] [place], [place], [id number] Pcp:Petty Riley Subjective: * Chief Complaints: * 1 . Painful nail(s) aggrevated by shoes and causing difficulty standing/walking.. 2. Ingrown nail(s). * HPI: P ainful Nails: Pt States Last PCP Visit: D ate: 0 05/13/2023 S kin problems: Nature: U lcer. Location: [facility]. Duration: a few months. Onset/Cause: d pn, overuse. Course: i mproved. Aggravated by: n o aggrevating factors. Treatments: [place] has been doing daily wd care. Misc: [place] CABG and cardiac valve s[place] [facility] [place] had complications. * ROS: G eneral/Constitutional: Nausea d enies. V omiting d enies. H sofy Thirst d enies. L oss appetite d enies. C hills d enies. F atigue d enies.?Fever d enies. N ight Sweats d enies. U nexplained weight loss d enies. U nexplained weight gain d enies. H EENTM: Dentures d enies. D izziness d enies. G lasses/contacts d enies. R etinopathy d enies. B lurred/double vision d enies. T MJ?denies. D ischarge/drainage d enies. I mplants d enies. S ore throat d enies. D ental implants d enies. H joão of hearing d enies. D ifficulty chewing/swallowing/speaking d enies. N ose bleeds d enies. S ore mouth d enies. ? R espiratory: On Oxygen d enies. P neumonia/pleurisy d enies.?Bronchitis d enies. E mphysema d enies. C oughing d enies. C ough blood?denies. S hortness of breath d enies. W heezing d enies. C ardiovascular: Pacemaker d enies. M VOCATIONAL COUNSELOR d enies. W PW d enies. C HF d enies. H eart attack d enies. S eptal defect d enies. R apid beat d enies. C hest pain d enies. A trial Fib. d enies. M urmur/Palpitations d enies. G astrointestinal: Hemorrhoids d enies. S tomach/Abdominal pain d enies. D ark blood stool d enies. I rritable bowel d enies. C onstipation d enies. D iarrhea d enies. H ematology: Swelling d enies. C lots d enies. V aricose Veins d enies. B ruising d enies. B leeding problem d enies. G enitourinary: Blood urine d enies. F requent/Painfu/urination/bladder control d enies. K idney stones d enies. I nfection (UTI) d enies. N ephropathy d enies. s ex trans dis (STD) d enies. P rostate d enies. M usculoskeletal: Hammertoes d enies. B unions d enies. B ack Pain d enies. M uscle Cramps/ Resting d enies. M uscle cramps / walking d enies.?Generalized aches and pains d enies. W eakness d enies. I nteg.: Renteria d enies. S cars d enies. C orns/calluses?denies. I ngrown nails d enies. P ainful nails d enies. O pen Sores d enies. R ashes d enies. N eurologic: Difficulty sleeping d enies. B rain disorder d enies. N umbness d enies. B alance trouble d enies. C onfusion d enies. F ainting/blackouts d enies. T ingling d enies. T remors d enies. * Medical History: Objective: * Vitals: * Examination: D ermatologic: SKIN FINDINGS: Skin exam reveals Keratotic lesion(s) located at, SUB MTH (s), 3, Left , SUB MTH (s), 1, 5, Right , Plantar, T2, T5, T6, T7, Skin shows sign(s) of, erythema overlying pre-ulcerative area dorsum t5 ipj and plantar ta ipj w ith skin intact.? ULCER: LOCATION--TA ipj-plantar aspect, SIZE, 3mm X 2mm X 1mm, BASE, fibrogranular, RIM, hyperkeratotic, UNDERMINING, absent, TRACKING, Full thickness breakdown of skin,NECROTIC TISSUE, loosely-adherent,yellow slough DRAINAGE, b lood, mild, MALODOR, absent, CALOR, absent, ERYTHEMA, absent, PAIN ON PALPATION, absent. G eneral Examination: GENERAL APPEARANCE: p leasant, alert, well nourished, well developed, well hydrated, with good attention to hygene/body habitus, and in no acute distress. ORIENTED: p erson,place, and time. N eurological: SENSORY: N eurological exam demonstrates, reduced light touch sensation, reduced sharp/dull pin prick discrimination , reduced vibration sensation, 5.07 monofilament test performed at plantar aspects of 5 varied sites per foot shows sensation, reduced , B/L.? V ascular: DP PULSES (B): 0/4, B/L. PT PULSES (B): 0/4, B/L. TROPHIC CONDITION-TEXTURE/ELASTICITY/TURGOR/HAIR GROWTH (B):? decreased, B/L. O rthopedic: MUSCLE STRENGTH: 5 /5 all groups in a symmetrical fashion , B/L. DIGITAL DEFORMITIES: Digital contracture, PIPJ, 2-5 B/L, incompl-reducable to push-up test, no over, nor underlapping. FOOTWEAR EVALUATION: new dm insoles from pnos are not accomodating for skin ulcer left and I marked them today to be modified to offload ulcer more fully.? N ails: NAILS are: E longated, overgrown, dystrophic, greater than 3mm thick, discolored and friable with crumbly malodorous subungual debris, with dull to no pain on palpation due to neuropathy, 1-5 B/L. O phthalmology Referral: DIABETES EYE EXAM D iabetic Retinopathy Screening: N o F indings of Diabetic Eye Exam: n o retinopathy I ngrown Nail: INSPECTION: Reveals nail incurvation, dull pain on palpation due to neuropathy, groove hypertrophy, Lateral nail border, T5. Assessment: * Assessment: 1. S kin disease - L98.9 (Primary) 2 . T ype 1 diabetes mellitus with diabetic polyneuropathy - E10.42 3 . O ther hammer toe(s) (acquired), left foot - M20.42 4 . T inea unguium - B35.1 5 . P ain in right toe(s) - M79.674 6 . P ain in left toe(s) - M79.675 7 . O ther hammer toe(s) (acquired), right foot - M20.41 8 . 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 I ngrowing nail - L60.0 Plan: * Treatment: * Procedures: D ebride skin< 25 sq cm: Open wound O pen wound selective debridement of fibrin, devitilized epidermis and/or dermis, exudate, using sterile sharp dissection, without use of anesthesia, with/without topical applications, wound assessment and instructions for ongoing care, Wound Care, The patient was instructed on importance of proper wound care consisting of pressure reduction, maintainance of moist wound environment, and regular debridement of devitilized tissue , The patient is to cleanse the wound with warm soapy water/peroxide/saline or betadine BID based on product availability , The patient is to apply Antibiotic Oint. to the wound and cover with a DSD , The patient was instructed to change dressings according to orders or PRN saturation, leaks, The patient was instructed to monitor and report any signs or symptoms of infection or any untoward reactions (45146).? N ail Avulsion: Location L ateral nail border, T5. Anesthesia w as deferred - NEUROPATHY: patient has medically documented neuropathic condition affecting sensation. Procedure A fine sterile elevator was used to loosen the eponychium, nail bed, nail plate and groove. A sterile nail splitter was then used to longitudinally section the nail. This section was removed. No underlying bone was identified. Procedure was performed under. Bacitracin and sterile dressings applied, local wound care instructions were dispensed. Patient was informed of both conservative and future surgical procedures to prevent recurrence. ? * Procedure Codes: 1 1730 Avulsion Plate, Modifiers: T5 , 49837 ACTIVE WOUND CARE/20 CM OR < * Follow Up: 2 Months * Images: * The named appointment provid er may or may not be the originator of this progress note, and it is not deemed complete until electronically signed by the appointment provider. Sign off status: Pending * Provider: Kevin Dawson DPM Date: 0 08/04/2023 Generated for Roxanna guzman/Nadine/Domingo on: 04/02/2024 12:05 AM EST History and Physical Notes * HPI (History of Present Illness) Category Sub-Category Detail Notes Category Not es Painful Nails Pt States Last PCP Visit: Date:: 05/13/2023 Skin problems Nature: Ulcer Location: Left , 1st Duration: a few months Onset/Cause: dpn, overuse Course: improved Aggravated by: no aggrevating facto rs Treatments: pt's has been d oing daily wd care Misc: pt had CABG and card iac valve s[place] [facility] [place] had [place] Examination Category Sub-Category Detail Notes Category Not es Ingrown Nail INSPECTION: Reveals nail inc urvation, dull pain on palpation due to neuropathy, groove hypertrophy, Lateral nail border, T5 Neurological SENSORY: Neurological exa m demonstrates, reduced light touch sensation, reduced sharp/dull pin prick discrimination , reduced vibration sensation, 5.07 monofilament test performed at plantar aspects of 5 varied sites per foot shows sensation, reduced , B/L Dermatologic SKIN FINDINGS: Skin exam reveal s Keratotic lesion(s) located at, SUB MTH (s), 3, Left , SUB MTH (s), 1, 5, Right , Plantar, T2, T5, T6, T7, Skin shows sign(s) of, erythema overlying pre-ulcerative area dorsum t5 ipj and plantar ta ipj with skin intact ULCER: LOCATION--TA ipj-cecil ntar aspect, SIZE, 3mm X 2mm X 1mm, BASE, fibrogranular, RIM, hyperkeratotic, UNDERMINING, absent, TRACKING, Full thickness breakdown of skin,NECROTIC TISSUE, loosely- adherent,yellow slough DRAINAGE, blood, mild, MALODOR, absent, CALOR, absent, ERYTHEMA, absent, PAIN ON PALPATION, absent Orthopedic FOOTWEAR EVALUATION: new dm inso les from pnos are not accomodating for skin ulcer left and I marked them today to be modified to offload ulcer more fully DIGITAL DEFORMITIES: Digital contracture , PIPJ, 2-5 B/L, incompl-reducable to push-up test, no over, nor underlapping MUSCLE STRENGTH: 5/5 all groups in a symmetrical fashion , B/L General Examination GENERAL APPEARANCE: pleasant , alert, well nourished, well developed, well hydrated, with good attention to hygene/body habitus, and in no acute distress ORIENTED: person,place, and ti me Ophthalmology Referral DIABETES EYE EXAM Diabetic Retinopa thy Screening:: No Findings of Diabetic Eye Exam:: no retin opathy Vascular DP PULSES (B): 0/4, B/L PT PULSES (B): 0/4, B/L TROPHIC CONDITION-TEXTURE/ELASTICITY/TUR GOR/HAIR GROWTH (B): decreased, B/L Nails NAILS are: Elongated, overg rown, dystrophic, greater than 3mm thick, discolored and friable with crumbly malodorous subungual debris, with dull to no pain on palpation due to neuropathy, 1-5 B/L
--- OUTSIDE RECORDS SUMMARY | 2024-02-24 07:45 | XMS_ITS ---
Author Organization [facility] Address [address] [place] [address] Care Team Providers Care Artist Manager Name Role Phone Petty Riley Primary Care Provider Unavailabl Rolando Whitaker Unavailable [phone] Encounters Encounter Location Date Provider Diagnosis [address] [address] 02/24/2024 Rolando Stevenson Plan Of Treatment Next Appt Details Provider Name:Rolando Stevenson , 02/12/2025 11:15:00 AM, [address] [place] [address], [phone], Progress Notes * Arsenio HUSTON GDOB:1945 (79 yo M)Acc No.[id number]:02/24/2024 Progress Note Patient: Arsenio MARIE Provider: Vinnie Stevenson DPM :1945 A ge:78 Y S ex:Male Date:02/24/2024 Address:[address] [facility] [id number] Pcp:Petty Riley Subjective: * Chief Complaints: * * Medical History: Objective: * Vitals: Assessment: Plan: * Treatment: * Images: * The named appointment provid er may or may not be the originator of this progress note, and it is not deemed complete until electronically signed by the appointment provider. Sign off status: Pending * Provider: Vinnie Stevenson DPM Date: 04/26/2023 Generated for Jeffi megan/Nadine/eTransmitting on: 04/02/2024 12:05 AM EST
--- OUTSIDE RECORDS SUMMARY | 2024-11-02 07:15 | XMS_ITS ---
Author Organization [facility] Address [address] [place] [address] Care Team Providers Care Director Of Strategic Alliances Name Role Phone Petty Riley Primary Care Provider Rolando Carrion Unavailable [phone] Allergies Allergen (clinical drug ingredient) Drug/Non Drug Allergy documented on EMR Reaction Allergy Type Onset Date Status Penicillin Unknown Drug Allergy Active Medications Medication SIG (Take, Route, Frequency, Duration) Notes Start Date End Date Status Lisinopril 40 MG 1 tablet Orally Once a day Not-Taking Lantus Not-Taking Plavix Not-Taking Vitamin D Not-Taking Simvastatin 40 MG as directed Orally O nce a day Not-Taking baby asprin Active Levaquin 500 MG 1 tablet Orally Once a day; Duration: 30 days 08/27/2020 Active NovoLOG Active Ammonium Lactate 12 % 1 application Externally to affected areas of dry skin to feet except for between the toes Twice a day; Duration: 30 days Active Doxycycline Hyclate 100 MG 1 capsule Orally Once a day; Duration: 10 day(s) Not-Taking Eliquis Active Levemir Active Vitamin B-12 Active Finasteride Active Atorvastatin Calcium Active Lisinopril 2.5 MG 1 tablet Orally Once a day; Duration: 30 day(s) Active Encounters Encounter Location Date Provider Diagnosis [facility] [address] [place] [address] 11/02/2024 Rolando Stevenson Plan Of Treatment Next Appt Details Provider Name:Rolando Stevenson , 02/12/2025 11:15:00 AM, [address] [place], [address], Progress Notes * Arsenio HUSTON GDOB:1945 (79 yo M)Acc No.[id number]:11/02/2024 Progress Note Patient: Arsenio MARIE Provider: Vinnie Stevenson DPM :1945 A ge:79 Y S ex:Male Date:11/02/2024 Address:[address] [place] [address], [place], [id number] Pcp:Petty Riley Subjective: * Chief Complaints: * * Medical History: A rthritis, Chicken pox, Measles, Mumps, Hypertensive renal disease, type II diabetes, Hypercholesterolemia, Heart disease. * Medications: T aking Lisinopril 2.5 MG Tablet 1 tablet Orally Once a day , Taking Eliquis , Taking Levemir , Taking Vitamin B-12 , Taking Finasteride , Taking Atorvastatin Calcium , Taking baby asprin , Taking Levaquin 500 MG Tablet 1 tablet Orally Once a day , Taking NovoLOG , Taking Ammonium Lactate 12 % Cream 1 application Externally to affected areas of dry skin to feet except for between the toes Twice a day , Not-Taking/PRN Doxycycline Hyclate 100 MG Capsule 1 capsule Orally Once a day , Not-Taking/PRN Lisinopril 40 MG Tablet 1 tablet Orally Once a day , Not- Taking/PRN Lantus , Not-Taking/PRN Plavix , Not-Taking/PRN Vitamin D , Not-Taking/PRN Simvastatin 40 MG Tablet as directed Orally Once a day * Allergies: P enicillin. Objective: * Vitals: Assessment: Plan: * Treatment: * Images: * The named appointment provid er may or may not be the originator of this progress note, and it is not deemed complete until electronically signed by the appointment provider. Sign off status: Pending * Provider: Vinine Stevenson DPM Date: 0 11/02/2024 Generated for Roxanna guzman/Nadine/Domingo on: 04/02/2024 12:05 AM EST
[2025-01-30 12:47] VITALS: BP 122/62; PULSE 66; BMI 24.9
--- NOTE | 2025-01-30 12:47 | MHC.OFFVIS ---
Vital Signs 01/30/25 12:47 Height 5 ft 7 in Weight 158 lb 11.725 oz BMI 24.9 BP 122/62 Blood Pressure Location Lt brachial Position Sitting Pulse 66 Pulse Source Monitor Intake Visit Reasons: 1 year Allergies penicillin V Allergy (Unknown, Verified 08/02/24 15:48) Rash Penicillins (PENICILLINS) Allergy (Unknown, Verified 08/02/24 15:48) RASH penicillin Allergy (Unknown, Uncoded 08/02/24 15:48) rash Medication List - Last Reconciled 01/30/25 by Collins Levine MD apixaban (Eliquis) 5 mg PO BID atorvastatin 40 mg PO DAILY 90 days blood sugar diagnostic 1 strip miscellaneous QID 100 days cyanocobalamin (vitamin B-12) 1,000 mcg PO DAILY 100 days [DIABETIC SHOES As directed] finasteride 5 mg PO DAILY 100 days insulin glargine (Basaglar KwikPen U-100 Insulin) 24 units (0.24 mL) subcut QAM lisinopril 2.5 mg PO DAILY Novolog FlexPen U-100 Insulin (insulin aspart U-100) 10 units (0.1 mL) subcut TID 100 days NS pen needle, diabetic As directed 6 times per day pioglitazone 15 mg PO DAILY HPI Comments Details: Arsenio returns for follow-up regarding coronary artery disease. He was having exertional cardiac symptoms and that led to workup showing multivessel coronary disease as well as severe aortic stenosis. Underwent coronary artery bypass surgery and aortic valve replacement. Since last seen, he states he is doing quite well. He has got no cardiac complaints or in fact anything of concern. [facility] Medical History (Updated 09/28/23 @ 10:34 by Collins Levine MD) Screening for hypothyroidism Atherosclerotic cardiovascular disease BPH (benign prostatic hyperplasia) Lumbar degenerative disc disease Finger fracture, left Hypercholesterolemia Hypertension Type 2 diabetes mellitus with hyperglycemia Surgical History History of facial surgery S/P triple vessel bypass History of toe surgery History of cataract surgery Family History Family/Other No problems noted. Mother CHF (congestive heart failure) Social History Housing: House Alcohol intake: never Patient Tobacco Use Status: Never used Tobacco e-Cigarette/Vaping Use: Never Used Second Hand Smoke Exposure: No service: No Current occupational status: retired Cognitive needs: No Hearing needs: No Vision needs: Yes Review of Systems Const Denies weakness ENT Denies dizziness Card Denies chest pain, Denies chest pain with activity, Denies syncope, Denies rapid heart rate, Denies pedal edema, Denies edema, Denies leg edema, Denies lightheadedness, Denies palpitations, Denies dyspnea, Denies dyspnea on exertion and Denies orthopnea Resp Denies cough, Denies dyspnea and Denies dyspnea on exertion GI Denies hematochezia and Denies change in stool character Musc Denies abnormal gait, Denies muscle cramps, Denies muscle weakness, Denies numbness, Denies radiating pain into limb and Denies tingling Neuro Denies abnormal gait, Denies dizziness, Denies syncope, Denies numbness, Denies tingling and Denies weakness Endo Denies palpitations Physical Exam Vital Signs: Last Vital Signs Pulse 66 01/30/25 12:47 BP 122/62 01/30/25 12:47 BMI result Body Mass Index 24.9 Const General: comfortable and no acute distress Orientation/consciousness: patient oriented x3 HEENT Other: Unremarkable Head: Yes normal to inspection Neck Neck: Yes normal visual inspection Chest Chest palpation & inspection: normal inspection of the chest Resp Auscultation: clear to auscultation bilaterally Cardio Palpation: normal PMI Heart sounds: S1 normal heart sound present, S2 normal heart sound present, no gallops, no murmurs and no rubs GI Palpation (GI): Soft to palpation Back/Spine/Pelvis Other: unremarkable Skin General skin exam: no rashes or lesions noted Neuro General: patient oriented x3 Extrem General: Yes normal to inspection Psych Mental Status: mental status grossly normal Office Procedures EKG Details: EKG with underlying sinus rhythm at 66/Min; rightward axis; no ischemic changes; [place] [address]-Pnosmvkeiaoeknxvg, Complete Assessment & Plan Assessment & Plan (1) Atherosclerotic cardiovascular disease: Code(s): I25.10 - Atherosclerotic heart disease of [place] coronary artery without angina pectoris Category: Medical Plan: Stable. Continue statins. Last LDL 69 mg/dL. (2) Status post aortic valve replacement: Code(s): Z95.2 - Presence of prosthetic heart valve Category: Surgical Plan: #23 Bioprosthetic AVR. Infective endocarditis prophylaxis per protocol. In the last echocardiogram from 2022, normally functioning bioprosthetic aortic valve. (3) PAF (paroxysmal atrial fibrillation): Code(s): I48.0 - Paroxysmal atrial fibrillation Category: Medical Plan: Postoperative atrial fibrillation. He was on short-term amiodarone but now discontinued. On Eliquis. (4) Hypertension: Code(s): I10 - Essential (primary) hypertension Category: Medical Qualifiers: Hypertension type: essential hypertension Qualified Code(s): I10 - Essential (primary) hypertension Plan: On low-dose lisinopril. Stable. (5) Type 2 diabetes mellitus with hyperglycemia: Comment: Dr. 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 Last hemoglobin A1c is 7.6%. Plan Discussion Notes I confirmed with the patient that this is a routine one-year follow-up and that he is doing well. I explained the need for a repeat echocardiogram, clarifying it is an ultrasound to check his heart valve and not a stress test, as his last one was over two years old. I advised the patient to avoid overexertion such as shoveling snow and to be mindful of fatigue in the heat. I recommended an annual follow-up schedule and instructed him to go to the emergency room if his condition worsens. Patient was informed and verbally consented to the use of an ambient scribe for clinic note documentation during this visit. Patient Instructions: - You are due for an echocardiogram, which is an ultrasound of the heart; our office will help schedule this test for you. - Avoid strenuous activities, such as shoveling a lot of snow. - If your symptoms get worse, please go to the nearest Emergency Room without delay. - Please schedule a follow-up appointment in one year. Coding Level of Care Code Est Pt Level 4 (92627) Complex EM visit Add On G2211 Diagnoses Atherosclerotic cardiovascular disease I25.10 Status post aortic valve replacement Z95.2 PAF (paroxysmal atrial fibrillation) I48.0 Essential hypertension I10 Hypertension type: essential hypertension Type 2 diabetes mellitus with hyperglycemia, with long-term current use of insulin E11.65; Z79.4 Diabetes mellitus ocean transportation intermediary insulin use: with intermediate use CPT Codes EKG - CPT: 50717-Sqvvrriumgsqxthrd, Complete ([id number])
--- OUTSIDE RECORDS SUMMARY | 2025-01-31 00:05 | XMS_ITS | Patient Health Record ---
Author Organization [facility] Address [address] [place] [address] Care Team Providers Care Pest Control Service Technician Name Role Phone Petty Riley MD Primary Care Provider Rocael Bearden [phone] Allergies Allergen (clinical drug ingredient) Drug/Non Drug Allergy documented on EMR Reaction Allergy Type Onset Date Status PCN (uncoded) Unknown Allergy Active Reason For Referral No Information Medications Medication SIG (Take, Route, Frequency, Duration) Notes Start Date End Date Status Lisinopril Active Simvastatin Active HumaLOG Active Colyte with Flavor Packs 240 GM Solution Reconstituted Use as directed Orally Once a day; Duration: 1 day(s) 12/14/2011 Active Lantus Active Social History Social History Additional Details Category Social Info Options Details Miscellaneous: Marital status: Occupation: Retired Section Notes: No smoker, no alcohol Problems Problem Type SNOMED Code ICD Code Onset Dates Problem Status W/U Status Risk Notes Problem Colon cancer screening (860373902) Colon cancer screening (V76.51) Active confirmed Problem History of adenomatous polyp of colon (630051148) History of adenomatous polyp of colon (V12.72) Active confirmed Plan Of Treatment Future Test Test Name Order Date COLONOSCOPY 12/14/2011 Insurance Providers Payer Name Payer Address Payer Phone Subscriber Number Group Number Insured Name Patient Relationship to Insured Coverage Start Date Coverage End Date [place] OF [place] [address] [place] [address] [id number] JEANNETTE HUSTON Self - patient is the insured Medical (General) History Medical History History ICD Code DM HTN Denies [place],CVA,Lung disease,renal disease hyperlipidemia diabetic retinopathy Surgical History Surgery Date(Month/Year) Left 2nd toe removed Laser for eyes for retinopathy from DM Skin cancer-Left ear
--- OUTSIDE RECORDS SUMMARY | 2025-01-31 00:06 | XMS_ITS | Clinical Summary ---
Author Organization [facility] Address [address] [address] Care Team Providers Care Sap Hana Architect Name Role Phone Petty Riley MD Primary Care Provider [phone] Allergies Active Allergy Reactions Criticality Noted Date [...] of 2 - PCV) 07/14[birth year]1962 Influenza Vaccine (#1) 2024 Hepatitis B Vaccine Aged Out No longe r eligible based on patient's age to complete this topic Insurance Aetna Medicare Aetna Medicare Care Teams Sap Hana Architect Relationship Specialty Start Date End Date Petty Riley MD [facility] [place] [address] [place] PCP - General Internal Medicine 06/28/22
--- OUTSIDE RECORDS SUMMARY | 2025-01-31 00:06 | XMS_ITS | Patient Health Record ---
[facility] [place] Address [address] [place] [address] Care Team Providers Care Silk Screen Printing Racker Name Role Phone Petty Riley Primary Care Provider Rolando Carrion Unavailable [phone] Allergies Allergen (clinical drug ingredient) Drug/Non Drug Allergy documented on EMR Reaction Allergy Type Onset Date Status Penicillin Unknown Drug Allergy Active Results Component Value Reference Range Notes HEMOGLOBIN A1C (GLYCOHEMOGLO BIN) Reviewed date:05/04/2024 11:52:58 AM Interpretation: Performing Lab: Notes/Report: HEMOGLOBIN A1C % (HH) 7.5 Reason For Referral No Information Medications Medication SIG (Take, Route, Frequency, Duration) Notes Start Date End Date Status Lisinopril 2.5 MG 1 tablet Orally Once a day; Duration: 30 day(s) Active Lisinopril 40 MG 1 tablet Orally Once a day Not-Taking Eliquis Active Lantus Not-Taking Levemir Active Plavix Not-Taking Vitamin B-12 Active Vitamin D Not-Taking Finasteride Active Simvastatin 40 MG as directed Orally O nce a day Not-Taking Atorvastatin Calcium Active baby asprin Active Levaquin 500 MG 1 tablet Orally Once a day; Duration: 30 days 08/27/2020 Active NovoLOG Active Ammonium Lactate 12 % 1 application Externally to affected areas of dry skin to feet except for between the toes Twice a day; Duration: 30 days Active Doxycycline Hyclate 100 MG 1 capsule Orally Once a day; Duration: 10 day(s) Not-Taking Immunizations Vaccine Route Administration Date Status Comme nts Influenza Unknown 11/12/2021 Administered Influenza Unknown 01/12/2023 Administered COVID-19 Pfizer BioNTech Vaccine Unknown 07/06/2021 Administered 1st 05/01/2020 2nd 05/24/2020 3rd 02/02/2021 Social History Tobacco Use: Social History Observation [...] Type 2 diabetes mellitus with peripheral angiopathy (457527281) Type 2 diabetes mellitus with diabetic peripheral angiopathy without gangrene (E11.51) Active confirmed Q7(A), Q8(2B), Q9(1B,2C) Vital Signs Blood pressure diastolic 85 mm Hg 07/24/2024 Height 5 ft 7in in 07/24/2024 Blood pressure systolic 123 mm Hg 07/24/2024 Weight 159 lbs 07/24/2024 BMI 24.9 kg/m2 07/24/2024 Procedures Procedure Date Ordered Date Performed Result Body Sit e 71243-PRZIYZB NAIL, 6 OR MORE 05/04/2024 N/A 69692-ITQE SKIN LESIONS, OVER 4 05/04/2024 N/A 92330-GMTLSFM NAIL, 6 OR MORE 07/24/2024 N/A 37537-LCUY SKIN LESIONS, OVER 4 07/24/2024 N/A Encounters Encounter [facility] Date [facility] [address] [address] [facility]24 Rolandoyaneli GranadosGraham Type 2 diabetes mellitus with diabetic peripheral angiopathy without gangrene E11.51 ; Tinea unguium B35.1 ; Pain in right toe(s) M79.674 ; Pain in left toe(s) M79.675 and Xerosis of skin L85.3 [facility] [address] 07/24/2024 Rolandoyaneli GranadosGraham Type 2 diabetes mellitus with diabetic peripheral angiopathy without gangrene E11.51 ; Tinea unguium B35.1 ; Pain in right toe(s) M79.674 ; Pain in left toe(s) M79.675 and Xerosis of skin L85.3 [facility] [place] [address] [place] [address] 02/23/2024 Rolando Stevenosn Assessments Encounter Date Diagnosis (ICD Code) Assessment [...] X ray : Foot, left 3V 08/13/2020 02584-TQYOGTA NAIL, 6 OR MORE 05/04/2024 15522-PJBJJMV NAIL, 6 OR MORE 07/24/2024 19837-ZQFOUIF NAIL, 6 OR MORE 07/29/2014 21176-Jyxoeyrk Plate 07/29/2014 09722-YHTCXKH SKIN/TISSUE 07/21/2020 24553-ZKPNEJK SKIN/TISSUE 10/01/2020 22376-BHTXXTR SKIN/TISSUE 10/07/2022 73010-PRQOFJE SKIN/TISSUE 01/13/2023 53968-YKSWMTZ SKIN/TISSUE 02/21/2023 18356-QUNMJUX SKIN/TISSUE 07/07/2020 61036-XEMPSVE SKIN/TISSUE 08/13/2020 27979-NUTMDXX SKIN/TISSUE 08/27/2020 18043-VDQY SKIN LESIONS, OVER 4 05/04/19 25 99541-ANEP SKIN LESIONS, OVER 4 07/25/19 25 33532-ULUL SKIN LESIONS, OVER 4 08/25/19 24 91964-GYPZ SKIN LESIONS, OVER 4 10/09/19 21 93709-NZSV SKIN LESIONS, OVER 4 02/24/20 21 49754-QOEC SKIN LESIONS, OVER 4 06/25/19 22 08779-GWYW SKIN LESIONS, OVER 4 07/08/19 21 95911-CNAA SKIN LESIONS, OVER 4 07/30/19 15 45080-XPELXTJA OF HEMATOMA/FLUID 022 HEMOGLOBIN A1C (GLYCOHEMOGLOBIN) 023 Next Appt Details Provider Name:Rolando Stevenson , 02/12/2025 11:15:00 AM, [address] [facility], [place], [address], Insurance Providers Payer Name Payer Address Payer Phone Subscriber Number Group Number Insured Name Patient Relationship to Insured Coverage Start Date Coverage End Date A[employer]na Medicare Open [address] [place] [address] [id number] Arsenio Padilla Self - patient is the [...]
== END 2025-01-30 13:05 | disposition home or self-care (01) ==
LOC: HO.HCS 12:43
PROVIDERS: PCP Internal Medicine; Visit Provider Internal Medicine
DX: I25.10 Atherosclerotic heart disease of native coronary artery without angina pectoris (principal); Z95.2 Presence of prosthetic heart valve; I48.0 Paroxysmal atrial fibrillation; I10 Essential (primary) hypertension; E11.65 Type 2 diabetes mellitus with hyperglycemia; Z79.4 Long term (current) use of insulin
CPT/HCPCS: 93010; 99214; G2211

== ENCOUNTER → 2025-01-30 12:43 | Outpatient (BNVA) | payer MEDICARE, MEDICAID, SELFPAY ==
[2022-11-01 08:04] VITALS: BP 122/60; BP 128/64; BMI 24.3
== END ==
PROVIDERS: PCP Internal Medicine; Visit Provider Internal Medicine
DX: E11.65 Type 2 diabetes mellitus with hyperglycemia (principal); I25.10 Atherosclerotic heart disease of native coronary artery without angina pectoris; Z95.2 Presence of prosthetic heart valve; I48.0 Paroxysmal atrial fibrillation; I10 Essential (primary) hypertension
CPT/HCPCS: 93005; 99212